=== PATIENT | female | born 1960 | race Caucasian/White ===

== ENCOUNTER 2020-01-02 03:04 | Inpatient (IN) | payer MEDICARE, MEDICAID, SELFPAY ==
[2020-01-02] VITALS (19 sets, daily range): BP systolic 106–136; BP diastolic 40–71; PULSE 68–90; RESP 12–20; TEMP 35.9–36.8; O2SAT 91–100; BMI 47.8
--- NOTE | ~2020-01-02 | XR_ITS ---
EXAMINATION: XR knee LT 3V DATE: 01/02/2020 04:34 INDICATION: Left knee pain post fall TECHNIQUE: Anteroposterior, oblique and crosstable lateral views of the left knee were obtained COMPARISON: None. FINDINGS: Alignment is normal. No fracture. Moderate-sized left knee joint effusion without layering lipohemar throsis. Tricompartmental osteoarthritis at the left knee with at least mild joint space narrowing th e medial compartment which could be underestimated on nonweightbearing imaging. Extensive vascular ca lcifications. IMPRESSION: 1. Moderate-sized left knee joint effusion. No fracture. 2. At least mild tricompartmental osteoarthritis. Reviewed, dictated and finalized at location A.
--- NOTE | ~2020-01-02 | CT_ITS ---
EXAMINATION: CT brain wo con DATE: 01/02/2020 05:04 INDICATION: Head trauma TECHNIQUE: Computed tomography (CT) of the head was performed without intravenous contrast. Sagittal and coronal reconstructions were performed. The mA was adjusted according to patient size. Iterative reconstruction technique was employed. The dose-length product was 681.00 mGy-cm. COMPARISON: head CT dated 03/24/2019 FINDINGS: No fracture. No acute intracranial hemorrhage, acute infarction or abnormal extra axial fluid collect ion. Ventricles are normal and symmetric. No mass/mass effect. Mild mucosal thickening in the left ma xillary sinus. Changes of bilateral intraocular lens replacement. The orbits and mastoid air cells a re normal. Intracranial calcified cerebral atherosclerosis is noted. IMPRESSION: 1. No fracture or acute intracranial process. Reviewed, dictated and finalized at location A.
--- NOTE | ~2020-01-02 | XR_ITS ---
EXAMINATION: XR knee RT 3V DATE: 01/02/2020 04:35 INDICATION: Right knee pain post fall TECHNIQUE: Anteroposterior, oblique and crosstable lateral views of the right knee were obtained COMPARISON: None. FINDINGS: Alignment is normal. No fracture. No joint effusion/layering lipohemarthrosis. At least mild tricomp artmental osteoarthritis with small marginal osteophytes in all 3 compartments. Enthesophytes along t he anterior patella and anterior tibial tuberosity. Extensive scattered vascular calcifications. IMPRESSION: 1. At least mild tricompartmental osteoarthritis of the right knee. No fracture or joint effusion. Reviewed, dictated and finalized at location A.
--- NOTE | 2020-01-02 03:13 | ECG_ITS ---
Measurements Intervals [place] Rate: 74 P: 11 [place]: 188 QRS: 7 QRSD: 114 T: 47 QT: 440 QTc: 489 Interpretive Statements SINUS RHYTHM BORDERLINE ST ABNORMALITY- HIGH LATERAL LEADS BASELINE ARTIFACT- I, III, AVL, V4 BORDERLINE ECG Electronically Signed On 01-05-2020 10:15:00 CDT by Everett Lemon D.O.
[2020-01-02] MEDS: MORPHINE SULFATE 4 MG/ML INJ IV PUSH (03:42)
[2020-01-02 04:19] LABS: Basophils Percent Auto 0.2 % (0.2-1.2); Eosinophils Absolute Auto 0.6 K/mm3 (0-0.3); Immature Granulocyte Absolute 0.21 K/mm3 (0.00-0.031); Immature Granulocyte Percent A 1.1 % (0-0.5); Lymphocytes Absolute Auto 1.58 K/mm3 (0.9-3.2); Mean Corpuscular HGB Conc 31.6 g/dl (32-36); Mean Corpuscular Hemoglobin 33.3 pg (26-34); Mean Corpuscular Volume 105.6 fl (80-100); Mean Platelet Volume 11.4 fl (7.4-10.4); Monocytes Absolute Auto 0.8 K/mm3 (0.1-0.6); Monocytes Percent Auto 4.1 % (2.6-8.5); Neutrophils Absolute Auto 16.5 K/mm3 (1.3-6.7); Neutrophils Percent Auto 83.6 % (45.5-73.1); Platelet Count Result 253 k/mm3 (150-375); Red Blood Count 1.98 M/mm3 (4.2-5.4); Red Cell Distribution Width 13.6 % (11.5-14.5); White Blood Count 19.7 K/mm3 (4.5-10.0)
[2020-01-02 04:24] LABS: Hematocrit 20.9 % (37.0-47.0); Hemoglobin 6.6 g/dL (12.0-15.0)
--- NOTE | 2020-01-02 04:29 | ED.WEAKNESS ---
HPI - Weakness General Chief complaint: Weakness Stated complaint: fall/ dizzy/ SOB Time Seen by Provider: 01/02/20 03:06 History of Present Illness HPI Narrative: Patient is a 59-year-old female who presents ER with weakness and falls. Patient reports she had been started on Lamictal recently and thinks it has been making her lightheaded. Patient has end-stage renal disease from hypertension and diabetes and dialyzes Friday. She has not missed her dialysis recently. Patient was walking down the halls high when she got lightheaded and dizzy and fell to the ground landing on her left knee. A similar thing occurred 2 days ago when she landed on her right knee. Right knee has significant bruising where his left knee has no significant bruising or swelling. Pain in the knee is worse with flexion. Related Data Home Medications Medication Instructions Recorded Confirmed amlodipine 01/02/20 apixaban [Eliquis] mg 01/02/20 carvedilol 01/02/20 citalopram mg 01/02/20 ergocalciferol (vitamin D2) 01/02/20 furosemide 01/02/20 gabapentin 01/02/20 hydralazine 01/02/20 lamotrigine 01/02/20 Allergies Allergy/AdvReac Type Severity Reaction Status Date / Time latex Allergy Unknown Verified 03/24/19 15:31 aspertame Allergy Unknown Uncoded 03/11/17 21:24 Review of Systems Review of Systems: All systems reviewed & are unremarkable except as noted in HPI and below Constitutional: Constitutional: Denies chills, Denies fever(s) and Reports weakness ENT: Denies nasal congestion and Denies sore throat Cardiovascular: Cardiovascular: Denies chest pain and Denies radiating jaw, neck or arm pain Respiratory: Respiratory: Denies cough, Denies dyspnea and Denies wheezing Gastrointestinal: Gastrointestinal: Denies abdominal pain, Denies nausea and Denies vomiting Musculoskeletal: Musculoskeletal: Denies myalgias, Reports arthralgias and Denies joint swelling Integumentary/Breasts: Comments: Right knee bruising Neurologic: Reports dizziness, Denies focal weakness, Denies numbness and Reports weakness PMF Past Medical History Medical History (Updated 01/02/20 @ 06:33 by Aajy Philip MD) Anxiety CVA (cerebral vascular accident) Depression Diabetes type 2, controlled End stage renal disease History of congestive heart failure Hypertension Myocardial infarction Pulmonary embolism Surgical History Surgical History (Updated 01/02/20 @ 04:38 by Ajay Philip MD) History of ankle surgery Surgically constructed arteriovenous fistula Social History Social History (Updated 01/02/20 @ 04:37 by Ajay Philip MD) Smoking status: Never smoker Exam Narrative: Exam Narrative: GENERAL: Well-appearing, well-nourished, and in no acute distress. HEAD: Normocephalic, atraumatic. EYES: PERRL and EOMI. ENT: Mucous membranes moist. CHEST: Clear to auscultation. No respiratory distress. HEART: Regular rate and rhythm. Normal peripheral pulses. ABDOMEN: Soft, nontender, nondistended. EXTREMITIES: Right lower extremity with contusion over the knee and proximal tibia. Tender palpation over the patella. Range of motion intact with minimal pain. Patellar tendon intact bilaterally. Left knee with tenderness over the patella with increased pain with flexion. Normal bilateral upper extremities. SKIN: Warm, dry, no rash. NEURO: Alert and oriented x3. PSYCH: Normal mood and affect. Course Course Emergency Course: Patient reports she has had some dark black stools over the last couple days. She is on a blood thinner for her pulmonary embolism. She dialyzes Friday. Admit to the hospitalist service. Protonix ordered and we will transfuse blood. Vital Signs Vital signs: Vital Signs Temperature 97.9 F 01/02/20 03:03 Pulse Rate 75 01/02/20 03:03 Respiratory Rate 20 01/02/20 03:03 Blood Pressure 106/55 L 01/02/20 03:03 Pulse Oximetry 93 01/02/20 03:03
[2020-01-02 04:36] LABS: Blood Urea Nitrogen 89 mg/dL (7-17); Calcium 7.6 mg/dL (8.4-10.2); Carbon Dioxide 27 mmol/L (22-30); Chloride 97 mmol/L (98-107); Estimated Glomerular Filt Rate 5; Glucose 179 mg/dL (65-105); Potassium 5.5 mmol/L (3.4-5.0); Sodium 134 mmol/L (137-145)
--- NOTE | 2020-01-02 04:48 | PC.NURSE ---
Called lab to add on PT INR, PTT
[2020-01-02 05:03] LABS: INR 1.7; Prothrombin Time 19.3 Seconds (11.1-14.7)
[2020-01-02 05:04] LABS: Partial Thromboplastin Time 42.8 SECONDS (22.3-36.8)
[2020-01-02] MEDS: PANTOPRAZOLE SODIUM IV 40 MG VIAL IV PUSH ×3 (05:30→16:29)
--- NOTE | 2020-01-02 07:30 | PC.NURSE ---
This patient, Bhargavi Gonzalez, was admitted to 2 Medical Room 254-01. Patient/family oriented to hospital policies and general routines including ID bracelet, bed and alarms, visiting hours, pain management, procedures, bathroom and other care routines, personal items, smoking policy, room service/diet, and visiting hours. Valuables list has been completed. Information on how to activate the Rapid Response Team has been discussed. Patient/Family are encouraged to report perceived risks to care and to ask questions if they do not understand what they are told or what they should do. Report given to shift stackergita Cross RN.
--- NOTE | 2020-01-02 07:41 | PM.IMHP ---
H&P: HPI History of Present Illness Chief complaint: Dizziness/weakness/fall Narrative: Date and time of patient contact: 01/02/2020 at 5:50 a.m. Bhargavi Gonzalez is a 59 year old female with a past medical history of pulmonary embolism March 2019, morbid obesity, and end-stage renal disease who presented to the ER with weakness, dizziness and fall. The patient reports 1 week of increased dizziness and weakness. She thought that the symptoms were due to her new Lamictal prescription. She had been on Lamictal for about 5 days. However she was also having black stools at the same time. She did not notice any bharath blood in her stools. She does still produce urine 2 or 3 times a day but she has not been having hematuria or dysuria. Review of Systems Review of Systems: Narrative: 12 systems were reviewed with pertinent positives and negatives per HPI. Except as documented in the HPI, all other systems were reviewed and are negative. [facility] Past Medical History Medical History (Updated 01/02/20 @ 07:59 by Lizbeth Ortega DO) Anxiety Aortic stenosis Reported as mild on echocardiogram May 2018 with bowel rate of 1.4 cm2 with a loud holosystolic murmur CHF (congestive heart failure) With echocardiogram 2018 demonstrating mild concentric left ventricular hypertrophy EF of 55%, mild enlargement of left atrium, mild mitral valve regurgitation, mild aortic stenosis with valve area of 1.5 cm CVA (cerebral vascular accident) Depression Diabetes type 2, controlled Diabetic neuropathy Diabetic retinopathy End-stage renal disease on hemodialysis Since around 2016 Hepatic steatosis History of congestive heart failure Hypertension Morbid obesity Myocardial infarction Pulmonary embolism March 2019 Surgical History Surgical History (Updated 01/02/20 @ 07:59 by Lizbeth Ortega DO) History of ankle surgery ORIF about 2014 History of colonoscopy with polypectomy 2016 Status post cataract extraction of both eyes with insertion of intraocular lens Surgically constructed arteriovenous fistula Left upper arm Family History Family History (Updated 01/02/20 @ 08:16 by Lizbeth Ortega DO) Mother CHF (congestive heart failure) Acute myocardial infarction Hypertension Father Alcoholism Brain tumor Social History Social History (Updated 01/02/20 @ 08:19 by Lizbeth Ortega DO) Smoking status: Never smoker Tobacco type: cigarettes Alcohol intake: current Drinks per week: 1 Alcohol use details: She uses alcohol in moderation and only on occasion. No more than 1 drink every 2 weeks Substance use: current Substance use type: marijuana Living arrangements: alone Additional living arrangements comments: She lives along with her 5-year-old Cat. She has never been and does not have any children. Additional occupation/education comments: She is on disability. 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 Gender identity (if verbalized by the patient): Female Spiritual care concerns: No Meds Home Medications and Allergies Home Medications Medication Instructions Recorded Confirmed Type amlodipine 01/02/20 History apixaban [Eliquis] mg 01/02/20 History carvedilol 01/02/20 History citalopram mg 01/02/20 History ergocalciferol (vitamin D2) 01/02/20 History furosemide 01/02/20 History gabapentin 01/02/20 History hydralazine 01/02/20 History lamotrigine 01/02/20 History Allergies Allergy/AdvReac Type Severity Reaction Status Date / Time latex Allergy Unknown Verified 03/24/19 15:31 aspertame Allergy Unknown Uncoded 03/11/17 21:24 Vital Signs Vital Signs - 24 hr 01/02/20 03:03 01/02/20 04:35 01/02/20 05:29 Temperature 97.9 F Pulse Rate 75 75 70 Respiratory Rate 20 18 18 Blood Pressure 106/55 L 132/55 L 114/57 L Pulse Oximetry 93 95 100
--- NOTE | 2020-01-02 10:17 | PC.NURSE ---
Blood vitals were not obtained in the ER at 0654. Patient did not arrive to our unit until 0730, so vitals were taken upon arrival to our unit.
[2020-01-02] MEDS: TUBING, BLOOD PLUM PUMP TUBING 1 EACH XX (11:10)
[2020-01-02] MEDS: SODIUM CHLORIDE 0.9% IV 250 ML 30 ML IV CONT (11:10)
--- NOTE | 2020-01-02 11:54 | PM.CNNEP ---
Assessment and Plan Assessment and plan (1) End stage renal disease: Code(s): N18.6 - End stage renal disease Status: Chronic (2) Anemia: Code(s): D64.9 - Anemia, unspecified Status: Acute (3) Diabetes: Code(s): E11.9 - Type 2 diabetes mellitus without complications Status: Acute Assessment and Plan: . Additional Plan Bhargavi has end-stage renal disease. Her next dialysis treatment is due tomorrow and she has no critical electrolyte abnormalities or issues related to volume overload that would necessitate the need for urgent dialysis today. However she is quite anemic and this is further complicated by fact that she was on chronic anticoagulation (Eliquis) for her distant history of pulmonary embolism. Her Eliquis as has subsequently been discontinued and she has been started on IV proton pump inhibitor therapy with serial hemoglobins ordered as well as GI consultation for further evaluation/ intervention if needed. Packed red blood cell transfusion to be done per protocol and I will continue high-dose Epogen therapy with dialysis in the hopes this will also help maintain some stability in her hemoglobin and hematocrit. As already mentioned, I will proceed with dialysis tomorrow and continue her her dialysis schedule of Friday, Friday, Friday while she remains hospitalized with further adjustments to her dialysis prescription as deemed necessary based on her hospital course. I will continue to follow patient with you while she remains hospitalized. Thank you for allowing me to participate in the care this patient. History of Present Illness Reason for Consult Consult date: 01/02/20 Reason for consult: end stage renal disease Chief Complaint Chief complaint: Dizziness/weakness/fall History of Present Illness Narrative: The patient is a 59 year old female with a past medical history as outlined below who presented to the [facility] ER with weakness and dizziness. The patient has apparently been having the above symptoms for at least the last week if not longer. Initially, she thought the symptoms related to a new medication, specifically, Lamictal, since she has been on that medication for last five days as a new prescription. However, later on, she started to notice black tarry stools as well. She did not report any bright red blood in her stools at that time. No reported hemoptysis, hematemesis, or hematuria.n and t Workup and evaluation in the emergency room demonstrated the patient to be hemodynamically stable with the physical exam that was only really significant for bilateral knee pain. She had x-rays of her knees is not demonstrate any type of fracture or dislocation but routine blood test demonstrated labs consistent with her known history of end-stage renal disease and a CBC with significant anemia with a hemoglobin of 6.6. It was felt that her significant anemia may explain the symptoms that led to her presentation to the ER. She was subsequently typed and crossed for a packed red blood cell transfusion and subsequent admitted the hospital for further evaluation. Renal consultation was requested due to her end-stage renal disease. The patient normally dialyzes on a Friday, Friday, Friday dialysis schedule at the [facility] under the care of Dr. Noriega. her last dialysis treatment was on Friday (12/31/19) and it was apparently an uneventful treatment. From a dialysis perspective, she is usually compliant with her dialysis treatments and has not been having any issues or problems in general with this chronic therapy. Currently, the patient appears to be in no acute distress at the time of my visit. Review of Systems Review of Systems: Narrative: As per HPI. [facility] Past Medical History Medical History (Updated 01/02/20 @ 12:04 by Robin Taylor MD) Anxiety Aortic stenosis Reported as mild on echocardiogram May 2018 with b
[2020-01-02] MEDS: LIDOCAINE 5% PATCH 2 PATCH TRANSDERM (12:23)
--- NOTE | 2020-01-02 12:30 | PC.NURSE ---
Dr. Schmidt informed me to cancel the current H/H series and retime the series to start two hours after blood transfusion is complete.
--- NOTE | 2020-01-02 13:17 | PM.IMPN ---
Progress Note: A&P Assessment and Plan (1) Anemia: Code(s): D64.9 - Anemia, unspecified Status: Acute Assessment and Plan: Acute anemia due to GI blood loss complicating anemia of chronic disease. Blood transfusion has been ordered 01/02/20 13:17 Patient is a 59-year-old female morbidly obese with history of end-stage renal disease on hemodialysis presented emergency department after see had fell and landed on her knees see had been feeling tired and weak for about a week and and today patient was walking in the corridor and fell dizzy and fell to the floor striking both of her knees, patient also states he has noticed dark stool but denies any abdominal pain nausea or vomiting denies any hematemesis hematochezia, upon arrival to emergency department her hemoglobin was 6.6 and patient is being transfused, it most likely dizziness due to anemia, will do the stool Hemoccult will consult GI for further recommendation, present time patient is feeling better denies any chest pain shortness of breath palpitation fever or chills (2) Acute GI bleeding: Code(s): K92.2 - Gastrointestinal hemorrhage, unspecified Status: Acute Assessment and Plan: Gastroenterology has been consulted. Protonix IV b.i.d. Serial H&Hs every 6 hours have been ordered Will stop the patient's home Eliquis. The patient has been on anticoagulation for 9 months. If this was a 1 time episode of pulmonary embolism and given that the patient's PE was subsegmental chance of recurrent embolism is less likely. Unfortunately the patient does have a sedentary lifestyle. (3) Prolonged QT interval: Code(s): R94.31 - Abnormal electrocardiogram [ECG] [EKG] Status: Acute Assessment and Plan: The patient's home med rec has not yet been reviewed. The patient does not know exact medications. Nursing staff will need to get these medications from the patient's [facility]'s pharmacy. The patient did mention that she is on Celexa. Given her degree of QT prolongation had it would probably be good idea to consider switching the patient's medication EKG was personally reviewed in the ER however EKG is not available in the electronic record from my documentation of the exact intervals and rate. (4) Knee contusion: Code(s): S80.00XA - Contusion of unspecified knee, initial encounter Status: Acute Assessment and Plan: Bilateral knee contusion after the fall there is no fracture, will have a PT OT evaluate the patient Subjective Date/time seen: 01/02/20 13:17 Patient is a 59-year-old female morbidly obese with history of end-stage renal disease on hemodialysis presented emergency department after see had fell and landed on her knees see had been feeling tired and weak for about a week and and today patient was walking in the corridor and fell dizzy and fell to the floor striking both of her knees, bilateral knee x-ray did not show any fracture however patient does have a contusion left worse than right, will have a PT OT evaluate the patient, patient also states he has noticed dark stool but denies any abdominal pain nausea or vomiting denies any hematemesis hematochezia, upon arrival to emergency department her hemoglobin was 6.6 and patient is being transfused, it most likely dizziness due to anemia, will do the stool Hemoccult will consult GI for further recommendation, present time patient is feeling better denies any chest pain shortness of breath palpitation fever or chills Review of Systems Review of Systems: All systems reviewed & are unremarkable except as noted in HPI and below Exam Narrative: Exam Narrative: Morbidly obese Const: General: comfortable and no acute distress HENMT: General nose exam: Normal nares present Eyes: General: appearance normal, both eyes and all related structures Sclera: sclerae normal Neck: Neck: supple Resp: Effort & Inspection: normal respiratory effort Ausculta
--- NOTE | 2020-01-02 13:58 | WPDGICN ---
Assessment and Plan Assessment and plan (1) Melena: Code(s): K92.1 - Melena Status: Acute Assessment and Plan: she already got blood transfusion, continue to trend hb and signs of bleeding EGD tomorrow, holding her eliquis she had a colonoscopy about 3 years ago (2) Acute on chronic blood loss anemia: Code(s): D62 - Acute posthemorrhagic anemia Status: Acute Assessment and Plan: monitor hb, supportive care on ppi bid now (3) End stage renal disease: Code(s): N18.6 - End stage renal disease Status: Chronic Assessment and Plan: dialysis by nephrology team (4) Acute GI bleeding: Code(s): K92.2 - Gastrointestinal hemorrhage, unspecified Status: Acute (5) Diabetes: Code(s): E11.9 - Type 2 diabetes mellitus without complications Status: Acute (6) Morbid obesity: Code(s): E66.01 - Morbid (severe) obesity due to excess calories Status: Acute GI Consult Note Consult date/time: 01/02/20 13:58 Reason for consult: melena HPI: Bhargavi Gonzalez is a 59 year old female with history of pulmonary embolism March 2019 on eliquis, morbid obesity, depression, and end-stage renal disease for 2 years on dialysis - (due to HTN, DM) here with few days of increased dizziness and weakness. She just recently started using Lamictal for her depression and thought that could be the reason of feeling dizzy. She fell on her knees without losing counciousness. Last few days also noted black stools. Hb on admission 6.6 (baseline 9-10) and given 2 units of blood transfusion. Never had EGD, denies abdominal pain or nausea, sometimes reflux but she is not taking any medication. She had a colonoscopy about 3 years ago for screening and had a polyp. Review of Systems Review of Systems: All systems reviewed & are unremarkable except as noted in HPI and below Constitutional: Constitutional: Denies chills, Reports fatigue, Denies fever(s) and Reports weakness ENT: Denies nasal congestion and Denies sore throat Cardiovascular: Cardiovascular: Denies chest pain and Denies radiating jaw, neck or arm pain Respiratory: Respiratory: Denies cough, Denies dyspnea and Denies wheezing Gastrointestinal: Gastrointestinal: Denies abdominal pain, Denies nausea and Denies vomiting Comments: melena Genitourinary: Genitourinary: Denies dysuria Musculoskeletal: Musculoskeletal: Denies myalgias, Reports arthralgias and Denies joint swelling Integumentary/Breasts: Comments: Right knee bruising Neurologic: Reports dizziness, Denies focal weakness, Denies numbness and Reports weakness Psychiatric: Psychiatric: Reports depression [facility] Past Medical History Medical History (Updated 01/02/20 @ 14:04 by Mendez Ramirez MD) Acute on chronic blood loss anemia Anxiety Aortic stenosis Reported as mild on echocardiogram May 2018 with bowel rate of 1.4 cm2 with a loud holosystolic murmur CHF (congestive heart failure) With echocardiogram 2017 demonstrating mild concentric left ventricular hypertrophy EF of 55%, mild enlargement of left atrium, mild mitral valve regurgitation, mild aortic stenosis with valve area of 1.5 cm CVA (cerebral vascular accident) Depression Diabetes type 2, controlled Diabetic neuropathy Diabetic retinopathy End-stage renal disease on hemodialysis Since around 2016 Hepatic steatosis History of congestive heart failure Hypertension Melena Morbid obesity Myocardial infarction Pulmonary embolism March 2019 Surgical History Surgical History (Updated 01/02/20 @ 07:59 by Lizbeth Ortega DO) History of ankle surgery ORIF about 2014 History of colonoscopy with polypectomy 2016 Status post cataract extraction of both eyes with insertion of intraocular lens Surgically constructed arteriovenous fistula Left upper arm Family History Family History (Updated 01/02/20 @ 08:16 by Lizbeth Ortega DO) Mother CHF (congest
[2020-01-02 14:54] LABS: Glucose Point of Care 108 (65-105)
[2020-01-02 15:35] LABS: Hematocrit 24.1 % (37.0-47.0)
[2020-01-02 16:41] LABS: Glucose Point of Care 94 (65-105)
[2020-01-02 21:22] LABS: Hematocrit 23.9 % (37.0-47.0); Hemoglobin 7.9 g/dL (12.0-15.0)
[2020-01-02 23:46] LABS: Glucose Point of Care 123 (65-105)
[2020-01-03] VITALS (32 sets, daily range): BP systolic 94–153; BP diastolic 40–67; PULSE 70–96; RESP 13–20; TEMP 36–37; O2SAT 92–98
[2020-01-03 05:57] LABS: Hematocrit 23.6 % (37.0-47.0); Hemoglobin 7.7 g/dL (12.0-15.0); Mean Corpuscular HGB Conc 32.6 g/dl (32-36); Mean Corpuscular Hemoglobin 32.6 pg (26-34); Mean Platelet Volume 11.9 fl (7.4-10.4); Platelet Count Result 233 k/mm3 (150-375); Red Blood Count 2.36 M/mm3 (4.2-5.4); Red Cell Distribution Width 15.5 % (11.5-14.5); White Blood Count 18.1 K/mm3 (4.5-10.0)
[2020-01-03 06:17] LABS: Albumin Level 3.1 g/dL (3.5-5.1); Blood Urea Nitrogen 113 mg/dL (7-17); Calcium 7.9 mg/dL (8.4-10.2); Carbon Dioxide 23 mmol/L (22-30); Chloride 97 mmol/L (98-107); Estimated CRCL calculation 8 ml/min; Estimated Glomerular Filt Rate 4; Glucose 176 mg/dL (65-105); Phosphorus 11.3 mg/dL (2.5-4.5); Potassium 5.8 mmol/L (3.4-5.0); Sodium 132 mmol/L (137-145)
[2020-01-03 06:25] LABS: Glucose Point of Care 160 (65-105)
[2020-01-03 07:01] LABS: Hepatitis B Surface Antigen Negative (Negative)
[2020-01-03 07:07] LABS: HAV RESULT Negative (Negative); Hepatitis B Core IgM Result Negative (Negative)
[2020-01-03 07:19] LABS: Hepatitis B Surface Anti Res Negative; Hepatitis C Virus Antibody Negative (Negative)
[2020-01-03 10:29] LABS: Hemoglobin 8.7 g/dL (12.0-15.0)
[2020-01-03] MEDS: EPOETIN ALFA 20,000 UNITS/ML VIAL 20000 UNITS IV PUSH (11:23)
--- NOTE | 2020-01-03 13:02 | PM.IMPN ---
Progress Note: A&P Assessment and Plan (1) Anemia: Code(s): D64.9 - Anemia, unspecified Status: Acute Assessment and Plan: Acute anemia due to GI blood loss complicating anemia of chronic disease. Blood transfusion has been ordered 01/03/20 13:02 Patient is a 59-year-old female morbidly obese with history of end-stage renal disease on hemodialysis presented emergency department after she had fell and landed on her knees she had been feeling tired and weak for about a week and on the day of admission patient was walking in the corridor and fell dizzy and fell to the floor striking both of her knees, patient also states he has noticed dark stool but denies any abdominal pain nausea or vomiting denies any bharath bleeding or hematemesis upon arrival to emergency department her hemoglobin was 6.6 and patient was transfused, most likely her dizziness due to anemia, will do the stool Hemoccult we consulted GI and was seen is scheduled EGD today, today patient is feeling better denies any chest pain shortness of breath palpitation fever or chills, stats lidodoerm patches on the knees are helping with pain. will have PT/OT evaluate the patient and treat. (2) Acute GI bleeding: Code(s): K92.2 - Gastrointestinal hemorrhage, unspecified Status: Acute Assessment and Plan: Gastroenterology has been consulted. Protonix IV b.i.d. Serial H&Hs every 6 hours have been ordered Will stop the patient's home Eliquis. The patient has been on anticoagulation for 9 months. If this was a 1 time episode of pulmonary embolism and given that the patient's PE was subsegmental chance of recurrent embolism is less likely. Unfortunately the patient does have a sedentary lifestyle. (3) Prolonged QT interval: Code(s): R94.31 - Abnormal electrocardiogram [ECG] [EKG] Status: Acute Assessment and Plan: The patient's home med rec has not yet been reviewed. The patient does not know exact medications. Nursing staff will need to get these medications from the patient's [facility]'s pharmacy. The patient did mention that she is on Celexa. Given her degree of QT prolongation had it would probably be good idea to consider switching the patient's medication EKG was personally reviewed in the ER however EKG is not available in the electronic record from my documentation of the exact intervals and rate. (4) Knee contusion: Code(s): S80.00XA - Contusion of unspecified knee, initial encounter Status: Acute Assessment and Plan: Bilateral knee contusion after the fall there is no fracture, will have a PT OT evaluate the patient Subjective Date/time seen: 01/03/20 13:02 Patient is a 59-year-old female morbidly obese with history of end-stage renal disease on hemodialysis presented emergency department after she had fell and landed on her knees she had been feeling tired and weak for about a week and on the day of admission patient was walking in the corridor and fell dizzy and fell to the floor striking both of her knees, patient also states he has noticed dark stool but denies any abdominal pain nausea or vomiting denies any bharath bleeding or hematemesis upon arrival to emergency department her hemoglobin was 6.6 and patient was transfused, most likely her dizziness due to anemia, will do the stool Hemoccult we consulted GI and was seen is scheduled EGD today, today patient is feeling better denies any chest pain shortness of breath palpitation fever or chills, stats lidodoerm patches on the knees are helping with pain. will have PT/OT evaluate the patient and treat. Review of Systems Review of Systems: All systems reviewed & are unremarkable except as noted in HPI and below Exam Narrative: Exam Narrative: Morbidly obese Const: General: comfortable and no acute distress HENMT: General nose exam: Normal nares present Eyes: Sclera: sclerae normal Neck: Neck: supple Resp: Effort & I
[2020-01-03] MEDS: LIDOCAINE 5% PATCH 2 PATCH TRANSDERM (13:12)
[2020-01-03] MEDS: SODIUM CHLORIDE 0.9% IV 500 ML 10 ML IV CONT (13:23)
--- NOTE | 2020-01-03 13:26 | WPDANESEPPF ---
Anes - Initial Pre Proc Eval Procedure: Operation Date: 01/03/20 14:15 Proposed Procedures p Esophagogastroduodenoscopy - Mendez Ramirez MD Date/Time: 01/03/20 13:26 Surgeon: Lizbeth Ortega DO Pre Op Diagnosis: Dizziness/weakness/fall Patient Data Age: 59 Gender: F Height: 5 ft 6 in Weight: 136.2 kg Last Vital Signs Temp 36.2 C L 01/03/20 13:24 Pulse 83 01/03/20 13:24 Resp 20 01/03/20 13:24 BP 110/43 L 01/03/20 13:24 Pulse Ox 92 01/03/20 13:24 Allergies Allergy/AdvReac Type Severity Reaction Status Date / Time aspartame Allergy Unknown Unknown Verified 01/03/20 09:08 latex Allergy Unknown Unknown Verified 01/03/20 09:08 Home Medications Medication Instructions Recorded Confirmed Type amlodipine 10 mg PO HS 01/02/20 01/02/20 History apixaban [Eliquis] 5 mg PO BID 01/02/20 01/02/20 History carvedilol 25 mg PO DAILY 01/02/20 01/02/20 History citalopram 40 mg PO DAILY 01/02/20 01/02/20 History ergocalciferol (vitamin D2) 50,000 unit PO WEEKLY 01/02/20 01/02/20 History furosemide 40 mg PO DAILY 01/02/20 01/02/20 History gabapentin 200 mg PO BID 01/02/20 01/02/20 History hydralazine 25 mg PO TID 01/02/20 01/02/20 History lamotrigine 25 mg PO HS 01/02/20 01/02/20 History Laboratory Tests 01/02/20 01/02/20 01/02/20 04:46 14:52 15:15 WBC RBC Hgb 8.0 g/dL L g/dL (12.0-15.0) Hct 24.1 % L % (37.0-47.0) MCV MCH MCHC RDW Plt Count MPV Sodium Potassium Chloride Carbon Dioxide BUN Creatinine Estim Creat Clear Calc Estimated GFR Glucose POC Capillary Glucose 108 mg/dl mg/dl (65-105) Calcium Phosphorus Albumin Hepatitis A IgM Ab Hep Bs Antigen Hep Bs Antibody Hep B Core IgM Ab Hepatitis C Ab Screen Crossmatch See Detail 01/02/20 01/02/20 01/02/20 16:28 21:17 23:19 WBC RBC Hgb 7.9 g/dL L g/dL (12.0-15.0) Hct 23.9 % L % (37.0-47.0) MCV MCH MCHC RDW Plt Count MPV Sodium Potassium Chloride Carbon Dioxide BUN Creatinine Estim Creat Clear Calc Estimated GFR Glucose POC Capillary Glucose 94 mg/dl mg/dl 123 mg/dl H mg/dl (65-105) (65-105) Calcium Phosphorus Albumin Hepatitis A IgM Ab Hep Bs Antigen Hep Bs Antibody Hep B Core IgM Ab Hepatitis C Ab Screen Crossmatch 01/03/20 01/03/20 01/03/20 05:33 05:33 05:33 WBC 18.1 K/mm3 H K/mm3 (4.5-10.0) RBC 2.36 M/mm3 L M/mm3 (4.2-5.4) Hgb 7.7 g/dL L g/dL (12.0-15.0) Hct 23.6 % L % (37.0-47.0) MCV 100.0 fl D fl (80-100) MCH 32.6 pg pg (26-34) MCHC 32.6 g/dl g/dl (32-36) RDW 15.5 % H % (11.5-14.5) Plt Count 233 k/mm3 k/mm3 (150-375) MPV 11.9 fl H fl (7.4-10.4) Sodium 132 mmol/L L mmol/L (137-145) Potassium 5.8 mmol/L H mmol/L (3.4-5.0) Chloride 97 mmol/L L mmol/L (98-107) Carbon Dioxide 23 mmol/L mmol/L (22-30) BUN 113 mg/dL H D mg/dL (7-17) Creatinine 10.50 mg/dL H mg/dL (0.7-1.0) Estim Creat Clear Calc 8 ml/min ml/min Estimated GFR 4 L (59 - ) Glucose 176 mg/dL H mg/dL (65-105) POC Capillary Glucose Calcium 7.9 mg/dL L mg/dL (8.4-10.2) Phosphorus 11.3 mg/dL H mg/dL (2.5-4.
[2020-01-03 13:28] LABS: Glucose Point of Care 104 (65-105)
--- NOTE | 2020-01-03 14:27 | PCOTNOTE ---
OT evaluation attempted. Patient down for EGD at this time. Will attempt at later time.
[2020-01-03 14:31] LABS: Glucose Point of Care 96 (65-105)
--- NOTE | 2020-01-03 14:32 | PCPTNOTE ---
Pt was at EGD undergoing a procedure - unable to perform PT eval this date. Will try again tomorrow. Sneha Mcbride, PT, DPT
[2020-01-03 15:19] LABS: Add Urine Microscopic? YES; Amorphous Sediment Urine Few; Appearance Urine Cloudy (Clear); Bacteria Urine 4+ /hpf; Bilirubin Urine Negative (Negative); Blood Urine 2+ (Negative); Color Urine Yellow (Yellow); Glucose Urine UA Negative (Negative); Ketones Urine Negative (Negative); Leukocyte Esterase Ur 3+ LEU/UL (Negative); Mucus Urine Rare /lpf; Nitrate Urine Negative (Negative); Protein Urine 1+ mg/dL (Negative); Specific Grav Ur 1.014 (1.001-1.035); Squamous Epithelial Cell Urine Many /hpf (Few); Urobilinogen Urine Negative mg/dL (<2.0); WBC Clumps Urine Present /HPF; WBC Urine >75 /hpf
[2020-01-03 15:29] LABS: Hematocrit 26.2 % (37.0-47.0); Hemoglobin 8.7 g/dL (12.0-15.0)
--- NOTE | 2020-01-03 15:54 | PM.PNNEP ---
Progress Note: A&P Assessment and Plan (1) End stage renal disease: Code(s): N18.6 - End stage renal disease Status: Chronic Assessment and Plan: HD today and continue M/W/F scheduie electrolytes, volume status, and clearance acceptable (2) Anemia: Code(s): D64.9 - Anemia, unspecified Status: Acute Assessment and Plan: s/p PRBC transfusion GI following EGD with results note today Epogen with HD follow trend of H/H (3) Diabetes: Code(s): E11.9 - Type 2 diabetes mellitus without complications Status: Acute Assessment and Plan: follow accuchekcs on SSI Will control to follow. Subjective Date/time seen: 01/03/20 15:54 Tolerated dialysis earlier this AM and subsequent EGD this afternoon; otherwise appears in good spirits; no apparent distress voiced at the time of my visit; no events overnight or earlier this AM. Exam Narrative: Exam Narrative: General: WD/WN female in NAD Heart: normal S1 and S2; no rub Lungs: clear to auscultation Abdomen: soft, nontender, nondistended, positive bowel sounds Extremities: no cyanosis or clubbing; no edema Skin: warm and dry Objective Data Vital Signs Vital Signs: Vital Signs Temp Pulse Resp BP Pulse Ox 01/03/20 15:02 36.8 C 89 19 142/49 H 95 01/03/20 14:32 87 13 132/59 L 94 01/03/20 14:22 85 20 114/42 L 94 01/03/20 14:12 86 16 94/44 L 94 01/03/20 13:24 36.2 C L 83 20 110/43 L 92 01/03/20 12:45 36.9 C 86 20 136/52 L 01/03/20 12:24 74 116/40 L 01/03/20 12:15 75 118/55 L 01/03/20 12:00 75 126/52 L 01/03/20 11:45 73 141/67 H 01/03/20 11:30 78 95/42 L 01/03/20 11:15 81 119/54 L 01/03/20 11:00 88 131/54 L 01/03/20 10:45 88 130/58 L 01/03/20 10:30 86 147/62 H 01/03/20 10:15 91 144/52 H 01/03/20 10:00 72 131/56 L 01/03/20 09:45 77 121/43 L 01/03/20 09:30 72 121/56 L 01/03/20 09:15 70 141/59 H 01/03/20 09:00 73 137/64 01/03/20 08:54 89 132/67 01/03/20 08:37 36.4 C 91 20 153/67 H 01/03/20 08:00 71 01/03/20 04:00 93 01/03/20 00:00 94 01/02/20 22:00 35.9 C L 71 16 118/43 L 91 01/02/20 20:00 69 01/02/20 16:00 88 Intake/Output Intake/Output: Intake & Output 12/31/19 01/01/20 01/02/20 01/03/20 23:59 23:59 23:59 23:59 Intake Total 1539 0 Output Total 3500 Balance 1539 -3500 Meds/Results Medications: Active Medications Generic Name Dose Route Start Last Admin Trade Name Freq PRN Reason Stop Dose Admin Acetaminophen 650 mg 01/02/20 05:51 Tylenol Tablet PO Q4H PRN Mild Pain (1-3) or Fever Hydrocodone Bitart/Acetaminophen 1 tab 01/02/20 05:51 [place] 5-325 Mg PO Q4H PRN Pain Rated 4-6 Dextrose 12.5 gm 01/02/20 11:10 Dextrose 50% Syringe IV PUSH PRN PRN Hypoglycemia Protocol Glucagon 1 mg 01/02/20 11:10 Glucagon For Inj IM PRN PRN Hypoglycemia Protocol Glucose 15 gm 01/02/20 11:10 Glutose 15 PO PRN PRN Hypoglycemia Protocol Dextrose 1,000 mls @ 100 mls/hr 01/02/20 11:10 Dextrose 5% 1,000 Ml IVPB PRN PRN Hypoglycemia Protocol Albumin Human 50 mls @ 999 mls/hr 01/03/20 03:21 Albutein IVPB 02/02/20 03:22 Q10M PRN HYPOTENSION Insulin Aspart 15 units 01/02/20 16:30 01/03/20 08:55 Novolog Mix 70/30 Vial SUB-Q Not Given BIDAC BRUNILDA Insulin Aspart 2 - 5 units 01/02/20 17:00 01/03/20 08:53 Novolog SUB-Q Not Given TIDWM [facility] Protocol Lidocaine 2 patch 01/02/20 09:00 01/03/20 13:12 Lidoderm TRANSDERM 2 patch DAILY [facility] Administration Morphine Sulfate 4 mg 01/02/20 05:51 Morphine Sulfate Inj IV PUSH Q2H PRN Pain Rated 7-10 Pantoprazole Sodium 40 mg 01/02/20 09:00 01/03/20 15:17 Protonix Iv IV PUSH Not Given BID [facility] Prometha
[2020-01-03 15:56] LABS: Glucose Point of Care 98 (65-105)
[2020-01-03] MEDS: INSULIN ASPART MIX 70/30 100 UNITS/ML 15 UNITS SUB-Q (16:19)
[2020-01-03] MEDS: PANTOPRAZOLE SODIUM IV 40 MG VIAL IV PUSH (16:27)
[2020-01-03 20:47] LABS: Glucose Point of Care 161 (65-105)
[2020-01-03 22:54] LABS: Hematocrit 27.9 % (37.0-47.0); Hemoglobin 9.1 g/dL (12.0-15.0)
[2020-01-04] VITALS (7 sets, daily range): BP systolic 108–120; BP diastolic 50–56; PULSE 69–81; RESP 16–18; TEMP 36.1–36.3; O2SAT 93–96
[2020-01-04 03:29] LABS: Hematocrit 23.9 % (37.0-47.0); Hemoglobin 7.8 g/dL (12.0-15.0); Mean Corpuscular HGB Conc 32.6 g/dl (32-36); Mean Corpuscular Hemoglobin 33.5 pg (26-34); Mean Corpuscular Volume 102.6 fl (80-100); Mean Platelet Volume 11.6 fl (7.4-10.4); Platelet Count Result 225 k/mm3 (150-375); Red Blood Count 2.33 M/mm3 (4.2-5.4); Red Cell Distribution Width 15.7 % (11.5-14.5); White Blood Count 17.7 K/mm3 (4.5-10.0)
[2020-01-04 03:37] LABS: Albumin Level 3.1 g/dL (3.5-5.1); Blood Urea Nitrogen 57 mg/dL (7-17); Calcium 8.3 mg/dL (8.4-10.2); Carbon Dioxide 29 mmol/L (22-30); Chloride 98 mmol/L (98-107); Estimated CRCL calculation 11 ml/min; Estimated Glomerular Filt Rate 6; Glucose 142 mg/dL (65-105); Potassium 4.7 mmol/L (3.4-5.0); Sodium 135 mmol/L (137-145)
[2020-01-04] MEDS: LIDOCAINE 5% PATCH 2 PATCH TRANSDERM (08:24)
[2020-01-04] MEDS: PANTOPRAZOLE SODIUM IV 40 MG VIAL IV PUSH (08:25)
[2020-01-04] MEDS: INSULIN ASPART MIX 70/30 100 UNITS/ML 15 UNITS SUB-Q (08:38)
[2020-01-04 09:34] LABS: Hemoglobin 7.4 g/dL (12.0-15.0)
--- NOTE | 2020-01-04 10:20 | WPDANESPN ---
Anes - Prog Note Post-Op Date/Time: 01/04/20 10:20 Cardiovascular status: normal Respiratory status: normal Airway patency: baseline Mental status: baseline Post-Op hydration status: normal Vital Signs: Last Vital Signs Temp 36.1 C L 01/04/20 06:00 Pulse 69 01/04/20 06:00 Resp 18 01/04/20 06:00 BP 120/50 L 01/04/20 06:00 Pulse Ox 96 01/04/20 06:00 I/O: Intake & Output 01/03/20 01/04/20 01/04/20 23:59 07:59 15:59 Intake Total 590 200 240 Output Total 100 150 Balance 490 50 240 Laboratory Tests 01/04/20 09:29 01/04/20 03:15 01/03/20 01/03/20 01/03/20 10:19 13:26 14:29 WBC RBC Hgb 8.7 L Hct 26.0 L MCV MCH MCHC RDW Plt Count MPV Sodium Potassium Chloride Carbon Dioxide BUN Creatinine Estim Creat Clear Calc Estimated GFR Glucose POC Capillary Glucose 104 96 Calcium Phosphorus Albumin Urine Color Urine Appearance Urine pH Ur Specific [place] Urine Protein Urine Glucose (UA) Urine Ketones Ur Blood (Man) Urine Nitrate Urine Bilirubin Urine Urobilinogen Leukocyte Esterase Rfl Urine RBC Urine WBC Urine WBC Clumps Ur Squamous Epith Cells Amorphous Sediment Urine Bacteria Urine Mucus 01/03/20 01/03/20 01/03/20 14:54 15:22 15:53 WBC RBC Hgb 8.7 L Hct 26.2 L MCV MCH MCHC RDW Plt Count MPV Sodium Potassium Chloride Carbon Dioxide BUN Creatinine Estim Creat Clear Calc Estimated GFR Glucose POC Capillary Glucose 98 Calcium Phosphorus Albumin Urine Color Yellow Urine Appearance Cloudy H Urine pH 5.0 Ur Specific [place] 1.014 Urine Protein 1+ H Urine Glucose (UA) Negative Urine Ketones Negative Ur Blood (Man) 2+ H Urine Nitrate Negative Urine Bilirubin Negative Urine Urobilinogen Negative Leukocyte Esterase Rfl 3+ H Urine RBC 11-20 H Urine WBC >75 H Urine WBC Clumps Present H Ur Squamous Epith Cells Many H Amorphous Sediment Few H Urine Bacteria 4+ H Urine Mucus Rare 01/03/20 01/03/20 01/04/20 20:44 22:48 03:15 WBC 17.7 H RBC 2.33 L Hgb 9.1 L 7.8 L Hct 27.9 L 23.9 L MCV 102.6 H MCH 33.5 MCHC 32.6 RDW 15.7 H Plt Count 225 MPV 11.6 H Sodium Potassium Chloride Carbon Dioxide BUN Creatinine Estim Creat Clear Calc Estimated GFR Glucose POC Capillary Glucose 161 H Calcium Phosphorus Albumin Urine Color Urine Appearance Urine pH Ur Specific [place] Urine Protein Urine Glucose (UA) Urine Ketones Ur Blood (Man) Urine Nitrate Urine Bilirubin Urine Urobilinogen Leukocyte Esterase Rfl Urine RBC Urine WBC Urine WBC Clumps Ur Squamous Epith Cells Amorphous Sediment Urine Bacteria Urine Mucus 01/04/20 01/04/20 03:15 09:29 WBC RBC Hgb 7.4 L Hct 23.0 L MCV MCH MCHC RDW Plt Count MPV Sodium 135 L Potassium 4.7 Chloride 98 Carbon Dioxide 29 BUN 57 H D Creatinine 7.40 H Estim Creat Clear Calc 11 Estimated GFR 6 L Glucose 142 H POC Capillary Glucose Calcium 8.3 L Phosphorus 8.0 H Albumin 3.1 L Urine Color Urine Appearance Urine pH Ur Specific [place] Urine Protein Urine Glucose (UA) Urine Ketones Ur Blood (Man) Urine Nitrate Urine Bilirubin Urine Urobilinogen Leukocyte Esterase Rfl Urine RBC Urine WBC Urine WBC Clumps Ur Squamous Epith Cells Amorphous Sediment Urine Bacteria Urine Mucus Post-procedural complaints: none Patient Feedback: Patient satisfied with anesthetic care.
[2020-01-04 11:35] LABS: Glucose Point of Care 109 (65-105)
--- NOTE | 2020-01-04 12:29 | PM.PNNEP ---
Progress Note: A&P Assessment and Plan (1) End stage renal disease: Code(s): N18.6 - End stage renal disease Status: Chronic Assessment and Plan: HD tomorrow and continue M/W/F scheduie electrolytes, volume status, and clearance acceptable (2) Anemia: Code(s): D64.9 - Anemia, unspecified Status: Acute Assessment and Plan: H/H trending down again s/p PRBC transfusion GI following s/p EGD with results noted Epogen with HD (3) Hypertension: Code(s): I10 - Essential (primary) hypertension Status: Chronic Assessment and Plan: well controlled not on any BP medications at this time (4) Diabetes: Code(s): E11.9 - Type 2 diabetes mellitus without complications Status: Chronic Assessment and Plan: follow accuchekcs on SSI Will control to follow. Subjective Date/time seen: 01/04/20 12:29 Tolerated dialysis and EGD yesterday without any issues; remains in good spirits today; no new issues or problems to report at this time. Exam Narrative: Exam Narrative: General: WD/WN female in NAD Heart: normal S1 and S2; no rub Lungs: clear to auscultation Abdomen: soft, nontender, nondistended, positive bowel sounds Extremities: no cyanosis or clubbing; no edema Skin: warm and intact Objective Data Vital Signs Vital Signs: Vital Signs Temp Pulse Pulse Resp BP Pulse Ox Pulse Ox 01/04/20 09:58 70 96 01/04/20 06:00 36.1 C L 69 18 120/50 L 96 01/04/20 04:00 69 01/04/20 00:00 81 01/03/20 23:27 36.0 C L 77 18 108/46 L 96 01/03/20 23:17 36.0 C L 77 18 106/46 L 96 01/03/20 22:00 36.6 C 79 20 106/46 L 98 01/03/20 20:00 96 01/03/20 16:00 95 01/03/20 15:02 36.8 C 89 19 142/49 H 95 01/03/20 14:32 87 13 132/59 L 94 01/03/20 14:22 85 20 114/42 L 94 01/03/20 14:12 86 16 94/44 L 94 01/03/20 13:24 36.2 C L 83 20 110/43 L 92 01/03/20 12:45 36.9 C 86 20 136/52 L Intake/Output Intake/Output: Intake & Output 01/01/20 01/02/20 01/03/20 01/04/20 23:59 23:59 23:59 23:59 Intake Total 1539 590 440 Output Total 3600 150 Balance 1539 -3010 290 Meds/Results Medications: Active Medications Generic Name Dose Route Start Last Admin Trade Name Freq PRN Reason Stop Dose Admin Acetaminophen 650 mg 01/02/20 05:51 Tylenol Tablet PO Q4H PRN Mild Pain (1-3) or Fever Hydrocodone Bitart/Acetaminophen 1 tab 01/02/20 05:51 01/04/20 08:40 [place] 5-325 Mg PO 1 tab Q4H PRN Administration Pain Rated 4-6 Dextrose 12.5 gm 01/02/20 11:10 Dextrose 50% Syringe IV PUSH PRN PRN Hypoglycemia Protocol Glucagon 1 mg 01/02/20 11:10 Glucagon For Inj IM PRN PRN Hypoglycemia Protocol Glucose 15 gm 01/02/20 11:10 Glutose 15 PO PRN PRN Hypoglycemia Protocol Dextrose 1,000 mls @ 100 mls/hr 01/02/20 11:10 Dextrose 5% 1,000 Ml IVPB PRN PRN Hypoglycemia Protocol Albumin Human 50 mls @ 999 mls/hr 01/03/20 03:21 Albutein IVPB 02/02/20 03:22 Q10M PRN HYPOTENSION Insulin Aspart 15 units 01/02/20 16:30 01/04/20 08:38 Novolog Mix 70/30 Vial SUB-Q 15 units BIDAC BRUNILDA Administration Insulin Aspart 2 - 5 units 01/02/20 17:00 01/04/20 08:23 Novolog SUB-Q Not Given TIDWM BRUNILDA Protocol Lidocaine 2 patch 01/02/20 09:00 01/04/20 08:24 Lidoderm TRANSDERM 2 patch DAILY BRUNILDA Administration Morphine Sulfate 4 mg 01/02/20 05:51 Morphine Sulfate Inj IV PUSH Q2H PRN Pain Rated 7-10 Pantoprazole Sodium 40 mg 01/02/20 09:00 01/04/20 08:25 Protonix Iv IV PUSH 40 mg BID BRUNILDA Administration Promethazine HCl 12.5 mg 01/02/20 05:51 Phenergan Inj IV PUSH Q6H PRN Nausea Radiology Results: ITS Impressions Knee X-Ray 01/02/20 08:06 IMPRESSION: 1. At
[2020-01-04 14:40] LABS: Glucose Point of Care 109 (65-105)
--- NOTE | 2020-01-04 14:59 | PM.DS ---
DS: Admitting Diagnosis Admitting Diagnosis Admitting Diagnosis: Gastrointestinal hemorrhage, unspecified DS: Summary Hospital Course Hospital Course: Spoke with Dr. Noriega her supervisor floor assembly and agrees with holding Corge and Amlodipine, patient will follow up with the nephroloigst to adjust her medications, patient will follow up with her primary care provider as soon as possible patient is instructed if any symptoms redevelop to go to nearest ER. Time Spent with Patient Time attestation: Total time spent providing and/or coordinating discharge services: DS: Data Data Completed and Pending Pending studies at discharge: Pending at discharge 01/03/20 14:08 Surgical [PTH] Routine Labs on day of discharge: Labs from last 24 hours 01/04/20 01/04/20 01/04/20 11:26 09:29 08:11 WBC RBC Hgb 7.4 L Hct 23.0 L MCV MCH MCHC RDW Plt Count MPV Sodium Potassium Chloride Carbon Dioxide BUN Creatinine Estim Creat Clear Calc Estimated GFR Glucose POC Capillary Glucose 109 109 Calcium Phosphorus Albumin Urine Color Urine Appearance Urine pH Ur Specific [place] Urine Protein Urine Glucose (UA) Urine Ketones Ur Blood (Man) Urine Nitrate Urine Bilirubin Urine Urobilinogen Leukocyte Esterase Rfl Urine RBC Urine WBC Urine WBC Clumps Ur Squamous Epith Cells Amorphous Sediment Urine Bacteria Urine Mucus 01/04/20 01/04/20 01/03/20 03:15 03:15 22:48 WBC 17.7 H RBC 2.33 L Hgb 7.8 L 9.1 L Hct 23.9 L 27.9 L MCV 102.6 H MCH 33.5 MCHC 32.6 RDW 15.7 H Plt Count 225 MPV 11.6 H Sodium 135 L Potassium 4.7 Chloride 98 Carbon Dioxide 29 BUN 57 H D Creatinine 7.40 H Estim Creat Clear Calc 11 Estimated GFR 6 L Glucose 142 H POC Capillary Glucose Calcium 8.3 L Phosphorus 8.0 H Albumin 3.1 L Urine Color Urine Appearance Urine pH Ur Specific [place] Urine Protein Urine Glucose (UA) Urine Ketones Ur Blood (Man) Urine Nitrate Urine Bilirubin Urine Urobilinogen Leukocyte Esterase Rfl Urine RBC Urine WBC Urine WBC Clumps Ur Squamous Epith Cells Amorphous Sediment Urine Bacteria Urine Mucus 01/03/20 01/03/20 01/03/20 20:44 15:53 15:22 WBC RBC Hgb 8.7 L Hct 26.2 L MCV MCH MCHC RDW Plt Count MPV Sodium Potassium Chloride Carbon Dioxide BUN Creatinine Estim Creat Clear Calc Estimated GFR Glucose POC Capillary Glucose 161 H 98 Calcium Phosphorus Albumin Urine Color Urine Appearance Urine pH Ur Specific [place] Urine Protein Urine Glucose (UA) Urine Ketones Ur Blood (Man) Urine Nitrate Urine Bilirubin Urine Urobilinogen Leukocyte Esterase Rfl Urine RBC Urine WBC Urine WBC Clumps Ur Squamous Epith Cells Amorphous Sediment Urine Bacteria Urine Mucus 01/03/20 14:54 WBC RBC Hgb Hct MCV MCH MCHC RDW Plt Count MPV Sodium Potassium Chloride Carbon Dioxide BUN Creatinine Estim Creat Clear Calc Estimated GFR Glucose POC Capillary Glucose Calcium Phosphorus Albumin Urine Color Yellow Urine Appearance Cloudy H Urine pH 5.0 Ur Specific [place] 1.014 Urine Protein 1+ H Urine Glucose (UA) Negative Urine Ketones Negative Ur Blood (Man) 2+ H Urine Nitrate Negative Urine Bilirubin Negative Urine Urobilinogen Negative Leukocyte Esterase Rfl 3+ H Urine RBC 11-20 H Urine WBC >75 H Urine WBC Clumps Present H Ur Squamous Epith Cells Many H Amorphous Sediment Few H Urine Bacteria 4+ H Urine Mucus Rare Discharge Plan Discharge Attending physician on discharge: Wilman Schmidt Consulting providers: Mendez Ramirez ; ; Robin Taylor
--- NOTE | 2020-01-04 15:09 | WPDGIPROGNO ---
Progress Note: A&P Assessment and Plan (1) Gastric ulcer: Qualifiers: Gastric ulcer chronicity: unspecified ulcer chronicity Gastric ulcer complication status: unspecified whether hemorrhage or perforation present Qualified Code(s): K25.9 - Gastric ulcer, unspecified as acute or chronic, without hemorrhage or perforation Code(s): K25.9 - Gastric ulcer, unspecified as acute or chronic, without hemorrhage or perforation Status: Acute Assessment and Plan: mod-severe erosive gastritis with several small gastric ulcers that can explain melena but no actively bleeding, biopsy pending. 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 she can see me in office in 3-4 weeks (2) Erosive gastritis: Code(s): K29.60 - Other gastritis without bleeding Status: Acute (3) Acute on chronic blood loss anemia: Code(s): D62 - Acute posthemorrhagic anemia Status: Acute Assessment and Plan: she had colonoscopy few years ago and did not want to have it again (4) Melena: Code(s): K92.1 - Melena Status: Acute (5) Hypertension: Qualifiers: Hypertension type: unspecified Qualified Code(s): I10 - Essential (primary) hypertension Code(s): I10 - Essential (primary) hypertension Status: Chronic (6) End stage renal disease: Code(s): N18.6 - End stage renal disease Status: Chronic Assessment and Plan: she is on dialysis (7) Morbid obesity: Code(s): E66.01 - Morbid (severe) obesity due to excess calories Status: Acute Subjective Date/time seen: 01/04/20 15:09 Interval history: no more bleeding in fact she is constipated now, denies abdominal pain, tolerating diet Review of Systems Review of Systems: All systems reviewed & are unremarkable except as noted in HPI and below Exam Const: General: comfortable and no acute distress Nutritional Appearance: obese Orientation/consciousness: patient oriented x3 HENMT: General nose exam: Normal nares present Eyes: General: appearance normal, both eyes and all related structures Neck: Neck: no JVD Resp: Auscultation: clear to auscultation bilaterally Cardio: Rate: regular rate Rhythm: regular rhythm GI: Inspection: non-distended GI Palp: Yes Soft to palpation, No Tenderness to palpation present (GI) and No Guarding due to palpation present (GI) Auscultation: normal bowel sounds Skin: General skin exam: pallor Neuro: General: gait normal Speech: normal speech Extrem: General: normal to inspection Other: av shunt left arm Psych: Mental Status: mental status grossly normal Objective Data Vital Signs Vital Signs: Vital Signs - 24 hr 01/03/20 16:00 01/03/20 20:00 01/03/20 22:00 Temperature 97.8 F Pulse Rate 95 96 79 Pulse Rate [At Rest Prior to Therapy Session] Respiratory Rate 20 Blood Pressure 106/46 L Pulse Oximetry 98 Pulse Oximetry [At Rest Prior to Therapy Session] 01/03/20 23:17 01/03/20 23:27 01/04/20 00:00 Temperature 96.8 F L 96.8 F L Pulse Rate 77 77 81 Pulse Rate [At Rest Prior to Therapy Session] Respiratory Rate 18 18 Blood Pressure 106/46 L 108/46 L Pulse Oximetry 96 96 Pulse Oximetry [At Rest Prior to Therapy Session] 01/04/20 04:00 01/04/20 06:00 01/04/20 08:00 Temperature 97.0 F L Pulse Rate 69 69 76 Pulse Rate [At Rest Prior to Therapy Session] Respiratory Rate 18 Blood Pressure 120/50 L Pulse Oximetry 96 Pulse Oximetry [At Rest Prior to Therapy Session] 01/04/20 09:58 01/04/20 12:00 Temperature Pulse Rate 72 Pulse Rate [At Rest Prior to Therapy Session] 70 Respiratory Rate Blood Pressure Pulse Oximetry Pulse Oximetry [At Rest Prior to Therapy Session] 96 Intake/Output Intake/Output: Intake & Output 01/01/20 01/02/20 01/03/20 01/04/20 23:59 23:59 23:59 23:59 Intake Total 1539 5
== END 2020-01-04 16:06 | disposition home or self-care (01) | DRG 377 ==
LOC: ANHED 03:40 → ANH2MED 06:33
PROVIDERS: Internal Medicine Gastroenterology; Internal Medicine Nephrology; Admitting Provider Internal Medicine; Emergency Provider Emergency Medicine; Visit Provider Family Medicine
PROC: 0DJ08ZZ Inspection of Upper Intestinal Tract, Via Natural or Artificial Opening Endoscopic (ICD-10-PCS; CPT 43235; principal; 2020-01-03 14:15)
DX: K29.01 Acute gastritis with bleeding (principal); N18.6 End stage renal disease; I13.2 Hypertensive heart and chronic kidney disease with heart failure and with stage 5 chronic kidney disease, or end stage renal disease; D62 Acute posthemorrhagic anemia; Z68.42 Body mass index [BMI] 45.0-49.9, adult; I50.9 Heart failure, unspecified; D63.8 Anemia in other chronic diseases classified elsewhere; E66.01 Morbid (severe) obesity due to excess calories; E11.22 Type 2 diabetes mellitus with diabetic chronic kidney disease; E11.319 Type 2 diabetes mellitus with unspecified diabetic retinopathy without macular edema; E11.40 Type 2 diabetes mellitus with diabetic neuropathy, unspecified; F32.9 Major depressive disorder, single episode, unspecified; R94.31 Abnormal electrocardiogram [ECG] [EKG]; S80.02XA Contusion of left knee, initial encounter; S80.01XA Contusion of right knee, initial encounter; W18.30XA Fall on same level, unspecified, initial encounter; I25.2 Old myocardial infarction; Z79.01 Long term (current) use of anticoagulants; Z79.899 Other long term (current) drug therapy; Z86.711 Personal history of pulmonary embolism; Z99.2 Dependence on renal dialysis
CPT/HCPCS: 36415; 36430; 70450; 73562; 80048; 80069; 80074; 81001; 85014; 85018; 85025; 85027; 85610; 85730; 86706; 86850; 86900; 86901; 86923; 87077; 87081; 87086; 87088; 87186; 88305; 93005; 96374; 96375; 97162; 97165; 99285; A9270; C9113; G0257; J1815; J2001; J2270; J2704; J7030; J7040; J7050; P9016; Q4081

== ENCOUNTER 2020-06-11 21:57 | Inpatient (IN) | payer MEDICARE, MEDICAID, SELFPAY ==
--- NOTE | ~2020-06-11 | XR_ITS ---
XR chest 1V portable DATE: 06/11/2020 22:24 INDICATION: Midsternal chest pain, shortness of breath. COPD, hypertension, congestive heart failure, diabetes TECHNIQUE: Portable AP chest on 06/11/2020 at 2226 hours COMPARISON: 03/24/2019 CT pulmonary scan FINDINGS: Heart size appears borderline, not optimally evaluated on AP projection because of magnific ation. There is pulmonary vascular congestion and redistribution. There is prominence of the minor fi ssure, suggesting subpleural edema. Slight blunting of the costophrenic angles may represent minimal pleural effusions. Some Nathan B-lines are suggested. There are mild primarily central and lower lung zone infiltrates suggesting pulmonary edema. Pneumonia is not excluded. Left subclavian and axillary artery stent. Degenerative spurring of the thoracic spine. IMPRESSION: Congestive heart failure, pulmonary edema. Pneumonia is not excluded. Reviewed, dictated and finalized at location A. IMPRESSION: Congestive heart failure, pulmonary edema. Pneumonia is not exclude dNaya
[2020-06-11 21:58] VITALS: BP 117/49; PULSE 85; RESP 26; TEMP 36.4; O2SAT 85
[2020-06-11 22:08] VITALS: PULSE 84; RESP 26; O2SAT 90
--- NOTE | 2020-06-11 22:15 | ECG_ITS ---
Measurements Intervals [place] Rate: 85 P: 40 SD: 186 QRS: -12 QRSD: 108 T: 59 QT: 360 QTc: 430 Interpretive Statements SINUS RHYTHM BORDERLINE R WAVE PROGRESSION, ANTERIOR LEADS BORDERLINE ST ABNORMALITY- HIGH LATERAL LEADS BASELINE ARTIFACT- I, II, AVR, AVF, V2-V3, V5 BORDERLINE ECG Electronically Signed On 06-12-2020 7:03:22 CDT by Everett Lemon D.O.
--- NOTE | 2020-06-11 22:18 | ED.GENADULT ---
HPI - General Adult General Chief complaint: Shortness of Breath/Dyspnea Stated complaint: sob/ cp Time Seen by Provider: 06/11/20 22:08 Source: RN notes reviewed History of Present Illness HPI narrative: Patient presents to emergency department from home for shortness of breath. Patient states she has been short of breath throughout the day today. And worse with ambulation. States is associated with midsternal chest tightness that is worse with ambulation and resolves with resting. Patient states she does have a history of dialysis and is on dialysis Friday but missed her Friday dialysis appointment. She denies any fevers or chills cough abdominal pain nausea vomiting or any other symptoms. Patient is on Eliquis daily which she has been taking. She states that she makes urine approximately once every other day Related Data Home Medications Medication Instructions Recorded Confirmed ergocalciferol (vitamin D2) 50,000 unit PO WEEKLY 01/02/20 01/02/20 furosemide 80 mg PO DAILY 01/02/20 01/02/20 gabapentin 200 mg PO BID 01/02/20 01/02/20 hydralazine 25 mg PO TID 01/02/20 01/02/20 lamotrigine 25 mg PO HS 01/02/20 01/02/20 apixaban [Eliquis] mg 06/11/20 citalopram mg 06/11/20 sevelamer carbonate 06/11/20 06/11/20 Allergies Allergy/AdvReac Type Severity Reaction Status Date / Time aspartame Allergy Unknown Unknown Verified 06/11/20 22:09 latex Allergy Unknown Unknown Verified 06/11/20 22:09 Review of Systems Review of Systems: Narrative: Gen.: Denies fevers or chills ENT: Denies congestion Respiratory: See HPI CV: See HPI GI: Denies abdominal pain nausea, emesis or diarrhea chronic renal failure with dialysis Friday Musculoskeletal: Denies back pain or muscle pain Neuro: Denies numbness, tingling, weakness or focal weakness Skin: Denies rash Except as documented, all other systems reviewed and negative PMFSH Past Medical History Medical History Acute on chronic blood loss anemia Anxiety Aortic stenosis Reported as mild on echocardiogram May 2018 with bowel rate of 1.4 cm2 with a loud holosystolic murmur CHF (congestive heart failure) With echocardiogram 2018 demonstrating mild concentric left ventricular hypertrophy EF of 55%, mild enlargement of left atrium, mild mitral valve regurgitation, mild aortic stenosis with valve area of 1.5 cm CVA (cerebral vascular accident) Depression Diabetes type 2, controlled Diabetic neuropathy Diabetic retinopathy End-stage renal disease on hemodialysis Since around 2016 Erosive gastritis Gastric ulcer Hepatic steatosis History of congestive heart failure Hypertension Melena Morbid obesity Myocardial infarction Pulmonary embolism March 2019 Surgical History Surgical History History of ankle surgery ORIF about 2014 History of colonoscopy with polypectomy 2016 Status post cataract extraction of both eyes with insertion of intraocular lens Surgically constructed arteriovenous fistula Left upper arm Family History Family History Mother CHF (congestive heart failure) Acute myocardial infarction Hypertension Father Alcoholism Brain tumor Social History Social History Smoking status: Never smoker Tobacco type: cigarettes Alcohol intake: current Drinks per week: 1 Substance use: current Substance use type: marijuana Additional living arrangements comments: She lives along with her 5-year-old Cat. She has never been and does not have any children. Additional occupation/education comments: She is on disability. 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 Gender identity (if verbal
[2020-06-11 22:19] VITALS: PULSE 88; O2SAT 93
[2020-06-11 22:36] LABS: Basophils Percent Auto 0.2 % (0.2-1.2); Eosinophils Absolute Auto 0.1 K/mm3 (0-0.3); Eosinophils Percent Auto 0.7 % (0-4.4); Hematocrit 32.9 % (37.0-47.0); Hemoglobin 10.1 g/dL (12.0-15.0); Immature Granulocyte Absolute 0.12 K/mm3 (0.00-0.031); Immature Granulocyte Percent A 0.7 % (0-0.5); Lymphocytes Absolute Auto 0.54 K/mm3 (0.9-3.2); Lymphocytes Percent Auto 3.3 % (18.3-44.2); Mean Corpuscular HGB Conc 30.7 g/dl (32-36); Mean Corpuscular Hemoglobin 32.5 pg (26-34); Mean Corpuscular Volume 105.8 fl (80-100); Mean Platelet Volume 10.3 fl (7.4-10.4); Monocytes Absolute Auto 0.7 K/mm3 (0.1-0.6); Monocytes Percent Auto 4.3 % (2.6-8.5); Neutrophils Absolute Auto 14.9 K/mm3 (1.3-6.7); Neutrophils Percent Auto 90.8 % (45.5-73.1); Platelet Count Result 262 k/mm3 (150-375); Red Blood Count 3.11 M/mm3 (4.2-5.4); Red Cell Distribution Width 13.6 % (11.5-14.5); White Blood Count 16.4 K/mm3 (4.5-10.0)
[2020-06-11 22:46] LABS: INR 1.3
[2020-06-11 22:47] LABS: Partial Thromboplastin Time 33.4 SECONDS (22.3-36.8)
[2020-06-11 22:53] LABS: Anion Gap 16 mmol/L (8-16); Blood Urea Nitrogen 69 mg/dL (7-17); Calcium 8.9 mg/dL (8.4-10.2); Carbon Dioxide 24 mmol/L (22-30); Chloride 100 mmol/L (98-107); Estimated Glomerular Filt Rate 4; Glucose 137 mg/dL (65-105); Sodium 140 mmol/L (137-145)
[2020-06-11 23:02] LABS: NT Pro B Type Natriuretic Pept > 35000 PG/ML (5-100); Troponin I 0.032 ng/mL (0.000-0.034)
[2020-06-11 23:05] VITALS: BP 132/55; PULSE 81; RESP 20; TEMP 36.9; O2SAT 94
--- NOTE | 2020-06-11 23:06 | PC.NURSE ---
Assumed care of pt. at this time. Report from BELLE Barcenas
[2020-06-11] MEDS: INSULIN HUMAN REGULAR (*BKC) 100 UNITS/ML 10 UNITS IV PUSH (23:53)
[2020-06-11] MEDS: SODIUM POLYSTYRENE SULFONONATE 15 GM/60 ML BTL 30 GM PO (23:54)
[2020-06-11] MEDS: DEXTROSE 50% 25 GM/50 ML SYRINGE IV PUSH (23:54)
[2020-06-11] MEDS: SODIUM BICARBONATE 8.4% 50 MEQ/50 ML VIAL IV PUSH (23:54)
[2020-06-11] MEDS: CALCIUM GLUCONATE 1,000 MG/10 ML VIAL 1000 MG IV PUSH (23:54)
[2020-06-12] VITALS (31 sets, daily range): BP systolic 113–175; BP diastolic 43–94; PULSE 61–98; RESP 18–24; TEMP 36.2–37.1; O2SAT 93–97; BMI 48.2
--- NOTE | 2020-06-12 | ECHO_ITS ---
Patient Info Name: Bhargavi Gonzalez Age: 60 years : 1960 Gender: Female Ht: 66 in Wt: 300 lbs BSA: 2.60 m2 HR: 93 bpm BP: 144 / 66 mmHg Heart Rhythm: Sinus Rhythm Technical Quality: Good Exam Date: 06/12/2020 2:22 PM Exam Location: [facility] Patient Status: Inpatient Admit Date: 06/12/2020 Staff Ordering Physician: Jesus Wood MD Director Of Vocational Guidance: John cMlean RDCS Attending Provider: Hugo Belcher MD Referring Physician: Israel CASTELAN; Exam Type: CA echo dop color flow w con Study Info Indications R01.1 - Cardiac murmur, unspecified Complete two-dimensional, color flow and Doppler transthoracic echocardiogram is performed with contrast to opacify the left ventricle and to improve the deliniation of the left ventricle endocardial borders. Contrast/Agitated Saline Contrast/Ag. Saline: Definity Amount: 3.00 ml Administered By: Savita Rey RN Existing IV Access: Yes History/Risk Factors CHF w/ murmur (), DM2, HTN, CAD/AZ. Summary 1. Definity contrast used to improve visualization. 2. Left ventricular systolic function is mildly reduced, estimated at 40-45%. 3. The left ventricular diastolic function is grade II diastolic dysfunction. 4. Aortic valve is likely bicuspid and is severely stenotic by Doppler valve area 1.0 cm sq. 5. The mitral valve annulus is severely calcified. 6. Compared with 2018 aortic valve area has progressed from 1.4-1.0cm2. Left Ventricle Left ventricular chamber dimension is mildly enlarged. Left ventricular systolic function is mildly reduced, estimated at 40-45%. There is mild concentric increased left ventricular wall thickness. The left ventricular diastolic function is grade II diastolic dysfunction. Definity contrast used to improve visualization. Right Ventricle Right ventricular chamber dimension is normal. Left Atria Left atrial chamber dimension is moderately enlarged. Right Atria Right atrial chamber dimension is normal. Aortic Valve The aortic valve is bicuspid. Aortic valve is likely bicuspid and is severely stenotic by Doppler valve area 1.0 cm sq. Pulmonic Valve The pulmonic valve is not well visualized. Mitral Valve The mitral valve has thickened leaflets. There is trace mitral valve regurgitation. The mitral valve annulus is severely calcified. Tricuspid Valve The tricuspid valve leaflets are normal. Pericardium/Pleural The pericardium appears normal. Aorta The aortic root size at the sinus of Valsalva is normal. Left Ventricular Outflow Tract Name Value Normal LVOT 2D LVOT Diameter 1.99 cm LVOT Doppler LVOT Peak Gradient 8 mmHg LVOT Mean Gradient 5 mmHg LVOT VTI 31.08 cm LVOT VTI/AV VTI Ratio 0.43 LVOT Stroke Volume 96.62 ml LVOT CO 9.18 l/min LVOT CI 3.54 L/min/m2 Mitral Valve
--- NOTE | 2020-06-12 00:06 | PM.IMHP ---
H&P: HPI History of Present Illness Date/Time: 06/12/20 00:06 Chief complaint: acute respiratory failure with hypoxia, CRF, Narrative: This is a 60 year old Diabetic female with known ESRD on HD and chronic Eliquis therapy secondary to having a pulmonary embolism last year presented to the hospital tonight with a complaint of shortness of breath. She also experienced midsternal chest pain which has now resolved. She described her chest pain as tightness and worse with any movement. The patient admits that she missed her dialysis this past Friday and has been drinking a lot of fluids. She also reports a sporadic dry cough. The patient denies any fevers, chills, nausea, vomiting, wheezing, sore throat, abdominal pain, diarrhea, rectal bleeding or worsening LE swelling. No other complaints tonight. Review of Systems Review of Systems: All systems reviewed & are unremarkable except as noted in HPI and below PMFSH Past Medical History Medical History Acute on chronic blood loss anemia Anxiety Aortic stenosis Reported as mild on echocardiogram May 2018 with bowel rate of 1.4 cm2 with a loud holosystolic murmur CHF (congestive heart failure) With echocardiogram 2018 demonstrating mild concentric left ventricular hypertrophy EF of 55%, mild enlargement of left atrium, mild mitral valve regurgitation, mild aortic stenosis with valve area of 1.5 cm CVA (cerebral vascular accident) Depression Diabetes type 2, controlled Diabetic neuropathy Diabetic retinopathy End-stage renal disease on hemodialysis Since around 2016 Erosive gastritis Gastric ulcer Hepatic steatosis History of congestive heart failure Hypertension Melena Morbid obesity Myocardial infarction Pulmonary embolism March 2019 Surgical History Surgical History History of ankle surgery ORIF about 2014 History of colonoscopy with polypectomy 2016 Status post cataract extraction of both eyes with insertion of intraocular lens Surgically constructed arteriovenous fistula Left upper arm Family History Family History Mother CHF (congestive heart failure) Acute myocardial infarction Hypertension Father Alcoholism Brain tumor Social History Social History Smoking packs per day: 0.25 Smoking cigarettes per day: 5.0 Years smoked: 5 Smoking pack-years: 1.25 Smoking status: Former smoker Tobacco type: cigarettes Alcohol intake: never Drinks per week: 1 Substance use: never Substance use type: marijuana Additional living arrangements comments: She lives along with her 5-year-old Cat. She has never been and does not have any children. Additional occupation/education comments: She is on disability. 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 Gender identity (if verbalized by the patient): Female Spiritual care concerns: No Meds Home Medications and Allergies Home Medications Medication Instructions Recorded Confirmed Type ergocalciferol (vitamin D2) 50,000 unit PO WEEKLY 01/02/20 01/02/20 History furosemide 80 mg PO DAILY 01/02/20 01/02/20 History gabapentin 200 mg PO BID 01/02/20 01/02/20 History hydralazine 25 mg PO TID 01/02/20 01/02/20 History lamotrigine 25 mg PO HS 01/02/20 01/02/20 History pantoprazole 40 mg PO Q12HR #60 tablet 01/04/20 Rx apixaban [Eliquis] mg 06/11/20 History citalopram mg 06/11/20 History sevelamer carbonate 06/11/20 06/11/20 History amlodipine 10 mg PO DAILY 06/12/20 06/12/20 History carvedilol 25 mg PO BID 06/12/20 06/12/20 History hydrocodone-acetaminophen 5 - 325 tablet PO Q4H PRN 06/12/20 06/12/20 History Allergies Allergy/AdvReac Type Severity Reactio
[2020-06-12 00:19] LABS: Glucose Point of Care 122 (65-105)
--- NOTE | 2020-06-12 00:54 | ADMGEN ---
This patient, Bhargavi Gonzalez, was admitted to IMU Room 203-01. Patient/family oriented to hospital policies and general routines including ID bracelet, bed and alarms, visiting hours, pain management, procedures, bathroom and other care routines, personal items, smoking policy, room service/diet, and visiting hours. Information on how to activate the Rapid Response Team has been discussed. Patient/Family are encouraged to report perceived risks to care and to ask questions if they do not understand what they are told or what they should do. report from Jennie Pena4 06/12/2020
[2020-06-12 01:03] LABS: Glucose Point of Care 154 (65-105)
[2020-06-12 02:09] LABS: Troponin I 0.032 ng/mL (0.000-0.034)
[2020-06-12] MEDS: FUROSEMIDE INJ 100 MG/10 ML VIAL 80 MG IV PUSH (02:41)
[2020-06-12 05:16] LABS: Basophils Percent Auto 0.2 % (0.2-1.2); Eosinophils Absolute Auto 0.1 K/mm3 (0-0.3); Eosinophils Percent Auto 0.7 % (0-4.4); Hematocrit 29.7 % (37.0-47.0); Hemoglobin 9.3 g/dL (12.0-15.0); Immature Granulocyte Percent A 0.7 % (0-0.5); Lymphocytes Absolute Auto 0.84 K/mm3 (0.9-3.2); Lymphocytes Percent Auto 6.1 % (18.3-44.2); Mean Corpuscular HGB Conc 31.3 g/dl (32-36); Mean Corpuscular Hemoglobin 33.3 pg (26-34); Mean Corpuscular Volume 106.5 fl (80-100); Mean Platelet Volume 11.2 fl (7.4-10.4); Monocytes Absolute Auto 0.6 K/mm3 (0.1-0.6); Monocytes Percent Auto 4.5 % (2.6-8.5); Neutrophils Percent Auto 87.8 % (45.5-73.1); Platelet Count Result 243 k/mm3 (150-375); Red Blood Count 2.79 M/mm3 (4.2-5.4); Red Cell Distribution Width 13.5 % (11.5-14.5); White Blood Count 13.7 K/mm3 (4.5-10.0)
[2020-06-12 05:31] LABS: Anion Gap 14 mmol/L (8-16); Blood Urea Nitrogen 74 mg/dL (7-17); Calcium 8.6 mg/dL (8.4-10.2); Carbon Dioxide 28 mmol/L (22-30); Chloride 100 mmol/L (98-107); Estimated CRCL calculation 7 ml/min; Estimated Glomerular Filt Rate 3; Glucose 110 mg/dL (65-105); Potassium 5.5 mmol/L (3.4-5.0); Sodium 142 mmol/L (137-145)
[2020-06-12 05:47] LABS: Troponin I 0.037 ng/mL (0.000-0.034)
[2020-06-12 06:34] LABS: Hepatitis B Surface Antigen Negative (Negative)
[2020-06-12 06:40] LABS: HAV RESULT Negative (Negative); Hepatitis B Core IgM Result Negative (Negative)
[2020-06-12 06:52] LABS: Hepatitis B Surface Anti Res Negative; Hepatitis C Virus Antibody Negative (Negative)
[2020-06-12 07:57] LABS: Glucose Point of Care 104 (65-105)
[2020-06-12] MEDS: EPOETIN ALFA-EPBX 10,000 UNITS/ML VIAL 5000 UNITS IV PUSH (11:05)
--- NOTE | 2020-06-12 12:17 | PM.PNNEP ---
Progress Note: A&P Assessment and Plan (1) End stage renal disease: Code(s): N18.6 - End stage renal disease Status: Chronic Assessment and Plan: HD today and continue M/W/F scheduled possible DUF tomorrow FULL CONSULT to follow. Subjective Date/time seen: 06/12/20 12:17 Tolerating dialysis at the time of my visit (seen on HD at ~ 11:50AM); breathing seems better at this time; no apparent distress noted. Objective Data Vital Signs Vital Signs: Vital Signs Temp Pulse Resp BP Pulse Ox 06/12/20 11:45 97 152/70 H 06/12/20 11:30 96 149/61 H 06/12/20 11:15 95 150/75 H 06/12/20 11:00 61 149/66 H 06/12/20 10:45 92 146/55 H 06/12/20 10:30 91 145/65 H 06/12/20 10:15 93 145/43 H 06/12/20 10:00 97 134/63 06/12/20 09:45 96 175/94 H 06/12/20 09:30 92 170/56 H 06/12/20 09:15 92 150/68 H 06/12/20 09:00 92 158/68 H 06/12/20 08:45 91 141/73 H 06/12/20 08:30 92 145/48 H 06/12/20 08:27 92 153/68 H 06/12/20 08:15 36.9 C 93 24 H 152/61 H 06/12/20 08:00 36.3 C L 96 24 H 128/55 L 97 06/12/20 05:57 93 06/12/20 04:00 36.4 C L 78 24 H 123/62 93 06/12/20 02:00 77 06/12/20 01:01 36.3 C L 96 18 116/65 95 06/12/20 00:20 82 21 H 113/49 L 94 06/11/20 23:05 36.9 C 81 20 132/55 L 94 06/11/20 22:19 88 93 06/11/20 22:08 84 26 H 90 06/11/20 21:58 36.4 C 85 26 H 117/49 L 85 L Meds/Results Medications: Active Medications Generic Name Dose Route Start Last Admin Trade Name Freq PRN Reason Stop Dose Admin Hydrocodone Bitart/Acetaminophen 1 tab 06/12/20 03:34 Hydrocodone/Acetaminophen (*Crx) 10-325 Mg Tablet PO Q4H PRN Pain Rated 7-10 Amlodipine Besylate 10 mg 06/12/20 09:00 Amlodipine Besylate 5 Mg Tablet PO DAILY [facility] Apixaban 5 mg 06/12/20 09:00 Apixaban 5 Mg Tablet PO BID [facility] Carvedilol 25 mg 06/12/20 09:00 Carvedilol 25 Mg Tablet PO Q12HR [facility] Dextrose 12.5 gm 06/12/20 00:33 Dextrose 50% 25 Gm/50 Ml Syringe IV PUSH PRN PRN Hypoglycemia Protocol Epoetin Mg-epbx 5,000 units 06/12/20 19:11 06/12/20 11:05 Epoetin Mg-Epbx 10,000 Units/Ml Vial IV PUSH 06/12/20 19:12 5,000 units ONCE ONE Administration Ergocalciferol 50,000 unit 06/14/20 09:00 Ergocalciferol 50,000 Unit Capsule PO WEEKLY [facility] Gabapentin 200 mg 06/12/20 09:00 Gabapentin 100 Mg Capsule PO BID [facility] Glucagon 1 mg 06/12/20 00:33 Glucagon For Inj 1 Mg Vial IM PRN PRN Hypoglycemia Protocol Glucose 15 gm 06/12/20 00:33 Glucose Oral Gel 15 Gm Of Glucse In 37.5 Gm Tube PO PRN PRN Hypoglycemia Protocol Hydralazine HCl 25 mg 06/12/20 08:00 Hydralazine Hcl 25 Mg Tablet PO TIDWM [facility] Dextrose 1,000 mls @ 100 mls/hr 06/12/20 00:33 Dextrose 5% 1,000 Ml IVPB PRN PRN Hypoglycemia Protocol Albumin Human 50 mls @ 999 mls/hr 06/12/20 03:11 Albutein IVPB 07/12/20 03:12 Q10M PRN HYPOTENSION Insulin Aspart 3 - 6 units 06/12/20 08:00 06/12/20 08:26 Insulin Aspart (*Bkc) 100 Units/Ml SUB-Q Not Given TIDWM [facility] Protocol Lamotrigine 25 mg 06/12/20 21:00 Lamotrigine 25 Mg Tablet PO HS [facility] Pantoprazole Sodium 40 mg 06/12/20 09:00 Pantoprazole 40 Mg Tablet PO Q12HR [facility] Sevelamer Carbonate 800 mg 06/12/20 08:00 Sevelamer Carbonate 800 Mg Tablet PO TIDWM [facility] Radiology Results: ITS Impressions Chest X-Ray 06/12/20 06:53 IMPRESSION: Congestive heart failure, pulmonary edema. Pneumonia is not excluded. Labs Labs: Laboratory Tests 06/12/20 04:20 06/12/20 04:20 Quality Patient seen/evaluated on hemodialysis treatment (02120).
[2020-06-12] MEDS: PANTOPRAZOLE 40 MG TABLET PO ×2 (12:50→20:28)
[2020-06-12] MEDS: SEVELAMER CARBONATE 800 MG TABLET PO ×2 (12:50→17:13)
[2020-06-12] MEDS: hydrALAZINE HCL 25 MG TABLET PO ×2 (12:50→17:14)
[2020-06-12] MEDS: HYDROcodone/acetaminophen (*CRX) 10-325 MG TABLET 1 TAB PO ×2 (12:51→17:13)
[2020-06-12] MEDS: carvediloL 25 MG TABLET PO ×2 (12:51→20:25)
[2020-06-12] MEDS: APIXABAN 5 MG TABLET PO ×2 (12:51→17:13)
[2020-06-12] MEDS: amLODIPine BESYLATE 5 MG TABLET 10 MG PO (12:52)
[2020-06-12] MEDS: GABAPENTIN 100 MG CAPSULE 200 MG PO ×2 (12:52→17:14)
[2020-06-12 13:39] LABS: Glucose Point of Care 81 (65-105)
[2020-06-12] MEDS: PERFLUTREN LIPID MICROSPHERES 1.5 ML VIAL DILUTED TO 10 ML TOTAL VOLUME IV PUSH (14:54)
[2020-06-12 15:52] LABS: Glucose Point of Care 114 (65-105)
--- NOTE | 2020-06-12 16:08 | PM.IMPN ---
Progress Note: A&P Assessment and Plan (1) Fluid overload: Qualifiers: Hypervolemia type: other Qualified Code(s): E87.79 - Other fluid overload Code(s): E87.70 - Fluid overload, unspecified Status: Acute Assessment and Plan: Secondary to noncompliance with hemodialysis. . Oxygen as needed. 4 liters off at dialysis today and repeat scheduled for tomorrow (2) Acute respiratory failure with hypoxia: Code(s): J96.01 - Acute respiratory failure with hypoxia Status: Acute Assessment and Plan: Secondary to being fluid overloaded. Continue oxygen supplementation. PRN bronchodilators. The patient will benefit from dialysis. Echo to asses Vent function especially with murmer (3) Acute hyperkalemia: Code(s): E87.5 - Hyperkalemia Status: Acute Assessment and Plan: Secondary to worsening renal function from noncompliance with dialysis. The patient was treated with Calcium gluconate, insulin, dextrose, and sodium bicarbonate with K falling prior to dialysis. recheck am (4) Chest pain: Qualifiers: Chest pain type: unspecified Qualified Code(s): R07.9 - Chest pain, unspecified Code(s): R07.9 - Chest pain, unspecified Status: Acute Assessment and Plan: Now resolved and likely secondary to shortness of breath and fluid overload. Trop negative with one borderline. check echo for wall motion abnormality (5) Hypertension: Qualifiers: Hypertension type: unspecified Qualified Code(s): I10 - Essential (primary) hypertension Code(s): I10 - Essential (primary) hypertension Status: Chronic Assessment and Plan: Stable. Monitor blood pressure. Continue home antihypertensives. 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 insulin use: without detention use Diabetes mellitus complication status: with kidney complications Diabetes mellitus complication detail: with chronic kidney disease Chronic kidney disease stage: on chronic dialysis Qualified Code(s): E11.22 - Type 2 diabetes mellitus with diabetic chronic kidney disease; N18.6 - End stage renal disease; Z99.2 - Dependence on renal dialysis Code(s): E11.9 - Type 2 diabetes mellitus without complications Status: Chronic Assessment and Plan: Accuchecks, SSI Coverage, and check A1C (7) End stage renal disease: Code(s): N18.6 - End stage renal disease Status: Chronic Assessment and Plan: Nephrology following (8) Chronic anticoagulation: Code(s): Z79.01 - 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 Continue Eliquis therapy. (9) Chronic anemia: Code(s): D64.9 - Anemia, unspecified Status: Chronic Assessment and Plan: Likely secondary to ESRD. check Fe studies Subjective Date/time seen: 06/12/20 16:08 Interval history: 60-year-old hypertensive type 2 diabetic with end-stage renal disease on hemodialysis Friday presented with increasing shortness of breath and volume overload. She had missed her last dialysis session. Potassium was elevated and treated appropriately in the emergency room. I saw her today while on dialysis and she was feeling better. Exam Narrative: Exam Narrative: Blood pressure 144/66 pulse is 90 and regular sat in 93% on 2 L nasal cannula lungs very faint crackle left posterior base distant breath sounds CV regular rate rhythm systolic ejection murmur lower left sternal were abdomen obese nontender extremities trace to 1+ lower extremity edema neuro alert cooperative no focal deficits Objective Data Vital Signs Vital Signs: Vital Signs - 24 hr 06/11/20 21:58 06/11/20 22:08 06/11/20 22:19 Temperature 36.4 C Pulse Rate 85 84 88 Respiratory Rate 26 H 26 H Blood Pressure 117/49 L
[2020-06-12] MEDS: lamoTRIgine 25 MG TABLET PO (20:28)
[2020-06-12 20:36] LABS: Glucose Point of Care 129 (65-105)
[2020-06-13] VITALS (22 sets, daily range): BP systolic 104–130; BP diastolic 35–67; PULSE 70–95; RESP 18–24; TEMP 36–36.9; O2SAT 94–100
[2020-06-13 05:37] LABS: Basophils Percent Auto 0.3 % (0.2-1.2); Eosinophils Absolute Auto 0.4 K/mm3 (0-0.3); Eosinophils Percent Auto 4.2 % (0-4.4); Hematocrit 30.4 % (37.0-47.0); Hemoglobin 9.3 g/dL (12.0-15.0); Immature Granulocyte Absolute 0.08 K/mm3 (0.00-0.031); Immature Granulocyte Percent A 0.9 % (0-0.5); Lymphocytes Absolute Auto 1.25 K/mm3 (0.9-3.2); Lymphocytes Percent Auto 13.9 % (18.3-44.2); Mean Corpuscular HGB Conc 30.6 g/dl (32-36); Mean Corpuscular Hemoglobin 33.1 pg (26-34); Mean Corpuscular Volume 108.2 fl (80-100); Mean Platelet Volume 11.2 fl (7.4-10.4); Monocytes Absolute Auto 0.5 K/mm3 (0.1-0.6); Monocytes Percent Auto 5.6 % (2.6-8.5); Neutrophils Absolute Auto 6.8 K/mm3 (1.3-6.7); Neutrophils Percent Auto 75.1 % (45.5-73.1); Platelet Count Result 211 k/mm3 (150-375); Red Blood Count 2.81 M/mm3 (4.2-5.4); Red Cell Distribution Width 13.4 % (11.5-14.5)
[2020-06-13 05:54] LABS: Iron 45 ug/dL (37-170)
[2020-06-13 05:57] LABS: Anion Gap 6 mmol/L (8-16); Blood Urea Nitrogen 43 mg/dL (7-17); Calcium 8.4 mg/dL (8.4-10.2); Carbon Dioxide 35 mmol/L (22-30); Chloride 99 mmol/L (98-107); Estimated CRCL calculation 12 ml/min; Estimated Glomerular Filt Rate 6; Glucose 94 mg/dL (65-105); Potassium 4.2 mmol/L (3.4-5.0); Sodium 140 mmol/L (137-145)
[2020-06-13 06:03] LABS: Percent Iron Saturation 22 % (20-50)
[2020-06-13 06:16] LABS: Hemoglobin A1C 5.5 % (<5.7)
[2020-06-13 08:50] LABS: Glucose Point of Care 89 (65-105)
[2020-06-13] MEDS: APIXABAN 5 MG TABLET PO ×2 (09:02→16:20)
[2020-06-13] MEDS: GABAPENTIN 100 MG CAPSULE 200 MG PO ×2 (09:03→22:24)
[2020-06-13] MEDS: hydrALAZINE HCL 25 MG TABLET PO ×2 (09:03→13:04)
[2020-06-13] MEDS: SEVELAMER CARBONATE 800 MG TABLET PO ×3 (09:03→16:20)
[2020-06-13] MEDS: amLODIPine BESYLATE 5 MG TABLET 10 MG PO (09:04)
[2020-06-13] MEDS: PANTOPRAZOLE 40 MG TABLET PO ×2 (09:04→22:23)
[2020-06-13] MEDS: carvediloL 25 MG TABLET PO ×2 (09:05→22:23)
--- NOTE | 2020-06-13 10:46 | PM.CNNEP ---
Assessment and Plan Assessment and plan (1) End stage renal disease: Code(s): N18.6 - End stage renal disease Status: Chronic Assessment and Plan: HD yesterday and continue M/W/ schedule while hosptialized follow electrolytes, volume status, and clearance (2) Fluid overload: Qualifiers: Hypervolemia type: other Qualified Code(s): E87.79 - Other fluid overload Code(s): E87.70 - Fluid overload, unspecified Status: Acute Assessment and Plan: due noncompliane with dialysis and increased fluid intake as well checking Echo plan DUF (dry ultrafiltration) for further fluid removal (3) Acute hyperkalemia: Code(s): E87.5 - Hyperkalemia Status: Acute Assessment and Plan: resolved s/p medical management in ER further correction with dialysis yesterday (4) Anemia: Code(s): D64.9 - Anemia, unspecified Status: Acute Assessment and Plan: due to ESRD borderline iron studies -- will dose with venofer with next HD treatment Epogen with HD follow H/H (5) Hypertension: Qualifiers: Hypertension type: unspecified Qualified Code(s): I10 - Essential (primary) hypertension Code(s): I10 - Essential (primary) hypertension Status: Chronic Assessment and Plan: reasonable control at this time suspect fluid with HD yesterday help this issue follow hemodynamics (6) Diabetes: Qualifiers: Diabetes mellitus type: type 2 Diabetes mellitus terminal gauger insulin use: without terminal gauger use Diabetes mellitus complication status: with kidney complications Diabetes mellitus complication detail: with chronic kidney disease Chronic kidney disease stage: on chronic dialysis Qualified Code(s): E11.22 - Type 2 diabetes mellitus with diabetic chronic kidney disease; N18.6 - End stage renal disease; Z99.2 - Dependence on renal dialysis Code(s): E11.9 - Type 2 diabetes mellitus without complications Status: Chronic Assessment and Plan: follow accuchecks on SSi Will continue to follow. History of Present Illness Reason for Consult Consult date: 06/13/20 Reason for consult: end stage renal disease Chief Complaint Chief complaint: acute respiratory failure with hypoxia, CRF, History of Present Illness Narrative: The patient is a 60 year old female with a past medical history as outlined below who presented to [facility] ER last night with shortness of breath. The patient shortness of breath started earlier on the day of admission and progressively got worse over the course of the day. She also had some associated midsternal chest pain that resolved on its own by the time of her arrival to the ER although she did describe it as a tightness that was worse with any type of movement. Other associated symptoms included dry sporadic cough and increased fluid intake since her mouth was dry all the time. Further complicating matters is that she missed her regularly scheduled dialysis treatment on Friday (06/09/2020) as well. She otherwise gave no other clinical symptoms with regard to fevers, chills, nausea, vomiting, diarrhea, hematochezia, melena, or palpitations. Workup and evaluation emergency room demonstrated the patient to be hemodynamically stable but in mild respiratory distress. Routine blood test demonstrated labs consistent with her known history of end-stage renal disease with but with hyperkalemia noted. Her chest x-ray demonstrated evidence of pulmonary vascular congestion as well. Due to her shortness of breath and respiratory distress, BiPAP was applied which seem to improve her overall clinical status. She received medical management for her hyperkalemia and was subsequent admitted the hospital for further evaluation and therapy. Renal consultation was requested due to her end-stage renal disease. The patient normally dialyzes on a Friday, Friday, Friday dialys
[2020-06-13 13:03] LABS: Glucose Point of Care 136 (65-105)
--- NOTE | 2020-06-13 14:59 | PM.IMPN ---
Progress Note: A&P Assessment and Plan (1) Fluid overload: Qualifiers: Hypervolemia type: other Qualified Code(s): E87.79 - Other fluid overload Code(s): E87.70 - Fluid overload, unspecified Status: Acute Assessment and Plan: Secondary to noncompliance with hemodialysis. . Oxygen as needed. Continue HD to improve fluid status. May need to be cautious due to her aortic stenosis. (2) Acute respiratory failure with hypoxia: Code(s): J96.01 - Acute respiratory failure with hypoxia Status: Acute Assessment and Plan: Secondary to being fluid overloaded. Not on home O2. Echo as mentioned below. Continue oxygen supplementation and wean as tolerated. Continue PRN bronchodilators. (3) Acute hyperkalemia: Code(s): E87.5 - Hyperkalemia Status: Acute Assessment and Plan: Secondary to worsening renal function from noncompliance with dialysis. The patient was treated with Calcium gluconate, insulin, dextrose, and sodium bicarbonate with improvement in potassium level. Potassium 4.2 today. (4) Chest pain: Qualifiers: Chest pain type: unspecified Qualified Code(s): R07.9 - Chest pain, unspecified Code(s): R07.9 - Chest pain, unspecified Status: Acute Assessment and Plan: Now resolved and likely secondary to shortness of breath and fluid overload. Trop negative with one borderline. EKG has boarderline findings. Echo showng EF 40-45% with Grade II diastolic dysfunction and bicuspid AV with severe stenosis (1.0cm2). She is being followed by a head screen worker already (5) Hypertension: Qualifiers: Hypertension type: unspecified Qualified Code(s): I10 - Essential (primary) hypertension Code(s): I10 - Essential (primary) hypertension Status: Chronic Assessment and Plan: Patient's blood pressure was reviewed on 06/13 Blood pressure remains well controlled. Will continue current medications coreg and hydralazine and amlodipine (6) Diabetes: Qualifiers: Chronic kidney disease stage: on chronic dialysis Diabetes mellitus complication detail: with chronic kidney disease Diabetes mellitus complication status: with kidney complications Diabetes mellitus long-term insulin use: without adjunct faculty for medical terminology use Diabetes mellitus type: type 2 Qualified Code(s): E11.22 - Type 2 diabetes mellitus with diabetic chronic kidney disease; N18.6 - End stage renal disease; Z99.2 - Dependence on renal dialysis Code(s): E11.9 - Type 2 diabetes mellitus without complications Status: Chronic Assessment and Plan: A1c 5.5. The patient's blood glucose was reviewed on 06/13 Glucose remains well controlled. Continue AccuCheks covering with sliding scale. Hypoglycemia protocol available as needed. Continue current treatment plan. (7) End stage renal disease: Code(s): N18.6 - End stage renal disease Status: Chronic Assessment and Plan: Nephrology following. Ciontinue HD - (8) Chronic anticoagulation: Code(s): Z79.01 - termite control servicer (current) use of anticoagulants Status: Chronic Assessment and Plan: Secondary to previous PE. Continue Eliquis therapy. (9) Chronic anemia: Code(s): D64.9 - Anemia, unspecified Status: Chronic Assessment and Plan: Likely secondary to ESRD. Fe studies more consistent with chronic disease then iron deficiency. EPO started Subjective Date/time seen: 06/13/20 14:59 Interval history: Date of service 06/13 60yo female with HTN, ESRD, DM here for increasing shortness of breath and volume overload. She has HD -- and has missed her last dialysis session prior to admission. Potassium was elevated and treated appropriately in the emergency room. Assuming care. Chart reviewed. She does not wear oxygen at home. She feels better overall. She denies chest pain. Eating well. No shayy
[2020-06-13] MEDS: BENZOCAINE/MENTHOL (*BKC) 18 EA LOZENGE 1 LOZENGE PO (16:20)
[2020-06-13 16:39] LABS: Glucose Point of Care 136 (65-105)
--- NOTE | 2020-06-13 18:27 | PC.NURSE ---
to dialysis room for treatment via bed accompanied by staff
[2020-06-13] MEDS: EPOETIN ALFA-EPBX 10,000 UNITS/ML VIAL 10000 UNITS IV PUSH (19:25)
[2020-06-13 22:00] LABS: Glucose Point of Care 197 (65-105)
[2020-06-13] MEDS: lamoTRIgine 25 MG TABLET PO (22:23)
[2020-06-13] MEDS: FLUTICASONE PROPIONATE 0.05% NA SPR 16 GM BTL (*BKC) 1 SPRAY NASAL (22:24)
--- NOTE | 2020-06-13 23:00 | PC.NURSE ---
This patient, Bhargavi Gonzalez, was received from [[facility] ] on 06/13/20 at 2300. Personal belongings list checked and signed. Patient/family oriented to unit policies and routines
[2020-06-14] VITALS (22 sets, daily range): BP systolic 94–139; BP diastolic 43–74; PULSE 58–90; RESP 16–20; TEMP 36.1–37.1; O2SAT 91–97
[2020-06-14] MEDS: BENZOCAINE/MENTHOL (*BKC) 18 EA LOZENGE 1 LOZENGE PO (05:49)
[2020-06-14 07:39] LABS: Glucose Point of Care 121 (65-105)
[2020-06-14] MEDS: APIXABAN 5 MG TABLET PO (08:15)
[2020-06-14] MEDS: amLODIPine BESYLATE 5 MG TABLET 10 MG PO (08:15)
[2020-06-14] MEDS: GABAPENTIN 100 MG CAPSULE 200 MG PO (08:15)
[2020-06-14] MEDS: ERGOCALCIFEROL 50,000 UNIT CAPSULE 50000 UNITS PO (08:15)
[2020-06-14] MEDS: SEVELAMER CARBONATE 800 MG TABLET PO ×2 (08:16→12:07)
[2020-06-14] MEDS: hydrALAZINE HCL 25 MG TABLET PO ×2 (08:16→12:02)
[2020-06-14] MEDS: carvediloL 25 MG TABLET PO (08:16)
[2020-06-14] MEDS: PANTOPRAZOLE 40 MG TABLET PO (08:17)
[2020-06-14] MEDS: FLUTICASONE PROPIONATE 0.05% NA SPR 16 GM BTL (*BKC) 1 SPRAY NASAL (08:19)
--- NOTE | 2020-06-14 10:00 | PM.DS ---
DS: Admitting Diagnosis Admitting Diagnosis Admitting Diagnosis: acute respiratory failure with hypoxia, CRF, DS: Discharge Diagnosis Discharge Diagnosis (1) Fluid overload: Qualifiers: Hypervolemia type: other Qualified Code(s): E87.79 - Other fluid overload Code(s): E87.70 - Fluid overload, unspecified Status: Acute Assessment and Plan: Secondary to noncompliance with hemodialysis. Oxygen was provided as needed. We continued HD to improve fluid status. May need to be cautious due to her aortic stenosis - discussed with nephrology. (2) Acute respiratory failure with hypoxia: Code(s): J96.01 - Acute respiratory failure with hypoxia Status: Acute Assessment and Plan: Secondary to being fluid overloaded. Not on home O2. Echo as mentioned below. We continued oxygen supplementation and able to wean off. We continued PRN bronchodilators. (3) Acute hyperkalemia: Code(s): E87.5 - Hyperkalemia Status: Acute Assessment and Plan: Secondary to noncompliance with dialysis. The patient was treated with Calcium gluconate, insulin, dextrose, and sodium bicarbonate with improvement in potassium level. Potassium 4.2 yesterday. (4) Chest pain: Qualifiers: Chest pain type: unspecified Qualified Code(s): R07.9 - Chest pain, unspecified Code(s): R07.9 - Chest pain, unspecified Status: Acute Assessment and Plan: Now resolved and likely secondary to shortness of breath and fluid overload. Trop negative with one borderline. EKG has boarderline findings. Echo showng EF 40-45% with Grade II diastolic dysfunction and bicuspid AV with severe stenosis (1.0cm2). She is actually not being followed by a sleeve maker she says today. Will plan to have her follow up with Dr Lemon. Change Norvasc to Lisinopril. EF 55% in 2018. (5) Hypertension: Qualifiers: Hypertension type: unspecified Qualified Code(s): I10 - Essential (primary) hypertension Code(s): I10 - Essential (primary) hypertension Status: Chronic Assessment and Plan: Patient's blood pressure was monitored Blood pressure remains well controlled. We continued current medications coreg and hydralazine but changed to lisinopril at discharge. (6) Diabetes: Qualifiers: Diabetes mellitus type: type 2 Diabetes mellitus intermediate insulin use: without buttermaker use Diabetes mellitus complication status: with kidney complications Diabetes mellitus complication detail: with chronic kidney disease Chronic kidney disease stage: on chronic dialysis Qualified Code(s): E11.22 - Type 2 diabetes mellitus with diabetic chronic kidney disease; N18.6 - End stage renal disease; Z99.2 - Dependence on renal dialysis Code(s): E11.9 - Type 2 diabetes mellitus without complications Status: Chronic Assessment and Plan: A1c 5.5. The patient's blood glucose was reviewed. Glucose remains well controlled. AccuCheks covering with sliding scale. Hypoglycemia protocol available as needed. (7) End stage renal disease: Code(s): N18.6 - End stage renal disease Status: Chronic Assessment and Plan: Nephrology following. Continue HD (8) Chronic anticoagulation: Code(s): Z79.01 - exterminator helper termite (current) use of anticoagulants Status: Chronic Assessment and Plan: Secondary to previous PE. We continued Eliquis therapy. (9) Chronic anemia: Code(s): D64.9 - Anemia, unspecified Status: Chronic Assessment and Plan: Likely secondary to ESRD. Fe studies more consistent with chronic disease then iron deficiency. EPO started (10) Aortic stenosis: Code(s): I35.0 - Nonrheumatic aortic (valve) stenosis Status: Acute Assessment and Plan: Echo 2018 showing mild with valve area 1.4. Echo here showing severe with valve area 1.0. She has had
--- NOTE | 2020-06-14 10:56 | PCPTNOTE ---
The PT treatment was unable to be completed today due to patient refusal. Patient reports she is discharging today after dialysis and wants to rest. Will continue per Plan of Care frequency.
[2020-06-14 12:18] LABS: Glucose Point of Care 157 (65-105)
--- NOTE | 2020-06-14 13:19 | PC.NURSE ---
Patient to dialysis per bed.
[2020-06-14] MEDS: EPOETIN ALFA-EPBX 10,000 UNITS/ML VIAL 10000 UNITS IV PUSH (15:19)
[2020-06-14] MEDS: IRON SUCROSE COMPLEX 200 MG in SODIUM CHLORIDE 0.9% IV 50 ML 240 MG IVPB (15:21)
--- NOTE | 2020-06-14 16:22 | P.PNNP_ITS ---
Progress Note: A&P Assessment and Plan (1) End stage renal disease: Code(s): N18.6 - End stage renal disease Status: Chronic Assessment and Plan: * HD today and continue M/W/F schedule while hosptialized * follow electrolytes, volume status, and clearance (2) Fluid overload: Qualifiers: Hypervolemia type: other Qualified Code(s): E87.79 - Other fluid overload Code(s): E87.70 - Fluid overload, unspecified Status: Acute Assessment and Plan: * due noncompliane with dialysis and increased fluid intake as well * Echo with severe AI * DUF (dry ultrafiltration) yesterday * HD today -- careful with aggressive fluid removal given valvular disease (3) Acute hyperkalemia: Code(s): E87.5 - Hyperkalemia Status: Acute Assessment and Plan: * resolved * s/p medical management in ER * further correction with dialysis (4) Anemia: Code(s): D64.9 - Anemia, unspecified Status: Acute Assessment and Plan: * due to ESRD * borderline iron studies -- will dose with venofer today * Epogen with HD * follow H/H (5) Hypertension: Qualifiers: Hypertension type: unspecified Qualified Code(s): I10 - Essential (primary) hypertension Code(s): I10 - Essential (primary) hypertension Status: Chronic Assessment and Plan: * reasonable control at this time * suspect fluid with HD yesterday help this issue * follow hemodynamics (6) Diabetes: Qualifiers: Chronic kidney disease stage: on chronic dialysis Diabetes mellitus complication detail: with chronic kidney disease Diabetes mellitus complication status: with kidney complications Diabetes mellitus salvage determiner insulin use: without salvage determiner use Diabetes mellitus type: type 2 Qualified Code(s): E11.22 - Type 2 diabetes mellitus with diabetic chronic kidney disease; N18.6 - End stage renal disease; Z99.2 - Dependence on renal dialysis Code(s): E11.9 - Type 2 diabetes mellitus without complications Status: Chronic Assessment and Plan: * follow accuchecks * on SSi Will continue to follow - not opposed to discharge from renal perspective. Subjective Date/time seen: 06/14/20 16:22 Tolerating dialysis at the time of my visit (seen on HD at ~ 4:10PM); no apparent distress noted; breathing has significantly improved since admission; happy about planned discharge today. Exam Narrative: Exam Narrative: General: WD/WN female in NAD Heart: normal S1 and S2; no rub Lungs: clear anteriorly; decreased at bases Abdomen: soft, nontender, nondistended, positive bowel sounds Extremities: no cyanosis or clubbing; no edema Skin: no rash or nodules Objective Data Vital Signs Vital Signs: Vital Signs Temp Pulse Resp BP Pulse Ox 06/14/20 16:00 80 134/48 L 06/14/20 15:45 74 117/47 L 06/14/20 15:30 87 128/56 L 06/14/20 15:15 86 128/47 L 06/14/20 15:00 79 109/45 L 06/14/20 14:45 87 109/49 L 06/14/20 14:30 58 L 139/74 06/14/20 14:15 86 116/52 L 06/14/20 14:00 84 108/44 L 06/14/20 13:45 82 121/47 L 06/14/20 13:30 83 119/52 L 06/14/20 13:16 84 120/54 L 06/14/20 13:00 36.6 C 78 16 112/44 L 06/14/20 12:00 36.1 C L 84 20 106/45 L 91 06/14/20 08:28 90 114/48 L 06/14/20 08:16 90
--- NOTE | 2020-06-14 16:22 | PM.PNNEP ---
Progress Note: A&P Assessment and Plan (1) End stage renal disease: Code(s): N18.6 - End stage renal disease Status: Chronic Assessment and Plan: HD today and continue M/W/ schedule while hosptialized follow electrolytes, volume status, and clearance (2) Fluid overload: Qualifiers: Hypervolemia type: other Qualified Code(s): E87.79 - Other fluid overload Code(s): E87.70 - Fluid overload, unspecified Status: Acute Assessment and Plan: due noncompliane with dialysis and increased fluid intake as well Echo with severe AI DUF (dry ultrafiltration) yesterday HD today -- careful with aggressive fluid removal given valvular disease (3) Acute hyperkalemia: Code(s): E87.5 - Hyperkalemia Status: Acute Assessment and Plan: resolved s/p medical management in ER further correction with dialysis (4) Anemia: Code(s): D64.9 - Anemia, unspecified Status: Acute Assessment and Plan: due to ESRD borderline iron studies -- will dose with venofer today Epogen with HD follow H/H (5) Hypertension: Qualifiers: Hypertension type: unspecified Qualified Code(s): I10 - Essential (primary) hypertension Code(s): I10 - Essential (primary) hypertension Status: Chronic Assessment and Plan: reasonable control at this time suspect fluid with HD yesterday help this issue follow hemodynamics (6) Diabetes: Qualifiers: Chronic kidney disease stage: on chronic dialysis Diabetes mellitus complication detail: with chronic kidney disease Diabetes mellitus complication status: with kidney complications Diabetes mellitus snf insulin use: without tank terminal gauger use Diabetes mellitus type: type 2 Qualified Code(s): E11.22 - Type 2 diabetes mellitus with diabetic chronic kidney disease; N18.6 - End stage renal disease; Z99.2 - Dependence on renal dialysis Code(s): E11.9 - Type 2 diabetes mellitus without complications Status: Chronic Assessment and Plan: follow accuchecks on SSi Will continue to follow - not opposed to discharge from renal perspective. Subjective Date/time seen: 06/14/20 16:22 Tolerating dialysis at the time of my visit (seen on HD at ~ 4:10PM); no apparent distress noted; breathing has significantly improved since admission; happy about planned discharge today. Exam Narrative: Exam Narrative: General: WD/WN female in NAD Heart: normal S1 and S2; no rub Lungs: clear anteriorly; decreased at bases Abdomen: soft, nontender, nondistended, positive bowel sounds Extremities: no cyanosis or clubbing; no edema Skin: no rash or nodules Objective Data Vital Signs Vital Signs: Vital Signs Temp Pulse Resp BP Pulse Ox 06/14/20 16:00 80 134/48 L 06/14/20 15:45 74 117/47 L 06/14/20 15:30 87 128/56 L 06/14/20 15:15 86 128/47 L 06/14/20 15:00 79 109/45 L 06/14/20 14:45 87 109/49 L 06/14/20 14:30 58 L 139/74 06/14/20 14:15 86 116/52 L 06/14/20 14:00 84 108/44 L 06/14/20 13:45 82 121/47 L 06/14/20 13:30 83 119/52 L 06/14/20 13:16 84 120/54 L 06/14/20 13:00 36.6 C 78 16 112/44 L 06/14/20 12:00 36.1 C L 84 20 106/45 L 91 06/14/20 08:28 90 114/48 L 06/14/20 08:16 90 06/14/20 08:00 36.8 C 84 18 112/58 L 97 06/14/20 05:00 37.1 C 87 20 110/43 L 94 06/13/20 23:45 36.1 C L 88 18 105/67 97 06/13/20 22:23 72 06/13/20 21:32 36.9 C 89 18 119/49 L 06/13/20 21:15 70 130/60 06/13/20 21:00 73 123/49 L 06/13/20 20:45 71 127/58 L 06/13/20 20:30 71 129/55 L 06/13/20 20:15 73 117/57 L 06/13/20 20:00 89 18 121/47 L 95 06/13/20 19:45 81 118/58 L 06/13/20 19:30 92 123/50 L 06/13/20 19:15 87 119/57 L 06/13/20 18:45 86 128/49 L 06/13/20 18:30 85 117/35 L 06/13/20 18:27 85 120/53 L 10
--- NOTE | 2020-06-14 17:06 | PC.NURSE ---
Patient return from dialysis.
== END 2020-06-14 17:40 | disposition home health service (06) | DRG 640 ==
LOC: ANHED 22:36 → ANHIMU 23:58 → ANH3MED 06-13 23:53 → ANHIMU 06-15 15:10
PROVIDERS: Internal Medicine; Internal Medicine Nephrology; Admitting Provider Family Medicine; Emergency Provider Emergency Medicine; Visit Provider Internal Medicine
DX: E87.79 Other fluid overload (principal); J96.01 Acute respiratory failure with hypoxia; N18.6 End stage renal disease; I13.2 Hypertensive heart and chronic kidney disease with heart failure and with stage 5 chronic kidney disease, or end stage renal disease; Z68.42 Body mass index [BMI] 45.0-49.9, adult; D63.1 Anemia in chronic kidney disease; E11.22 Type 2 diabetes mellitus with diabetic chronic kidney disease; I50.9 Heart failure, unspecified; Z99.2 Dependence on renal dialysis; Z91.15 Patient's noncompliance with renal dialysis; R07.9 Chest pain, unspecified; E66.01 Morbid (severe) obesity due to excess calories; E87.5 Hyperkalemia; I35.0 Nonrheumatic aortic (valve) stenosis; E11.65 Type 2 diabetes mellitus with hyperglycemia; E11.40 Type 2 diabetes mellitus with diabetic neuropathy, unspecified; E11.319 Type 2 diabetes mellitus with unspecified diabetic retinopathy without macular edema; I25.2 Old myocardial infarction; Z79.01 Long term (current) use of anticoagulants; Z28.21 Immunization not carried out because of patient refusal; Z98.42 Cataract extraction status, left eye; Z98.41 Cataract extraction status, right eye; Z96.1 Presence of intraocular lens; Z86.711 Personal history of pulmonary embolism; Z86.73 Personal history of transient ischemic attack (TIA), and cerebral infarction without residual deficits; Z87.891 Personal history of nicotine dependence
CPT/HCPCS: 36415; 71045; 80048; 80074; 82728; 83036; 83540; 83550; 83880; 84484; 85025; 85610; 85730; 86706; 93005; 96374; 96375; 97161; 97165; 99285; A9270; C8929; G0257; G0378; J0610; J1756; J1815; J1940; J7030; Q5106; Q9957

== ENCOUNTER 2020-07-28 13:33 | Inpatient (IN) | payer MEDICARE, MEDICAID, SELFPAY ==
[2020-07-28] VITALS (61 sets, daily range): BP systolic 107–155; BP diastolic 52–86; PULSE 75–84; RESP 11–29; TEMP 36.4–36.8; O2SAT 78–100; BMI 46.0
--- NOTE | ~2020-07-28 | XR_ITS ---
EXAMINATION: XR chest 1V portable DATE: 07/28/2020 14:22 INDICATION: Weakness. TECHNIQUE: A single frontal view of the chest was obtained. COMPARISON: Chest single view 06/11/2020, chest CT 03/24/2019 FINDINGS: There are mild airspace opacities in left lower lung zone. No pleural effusion or pneumotho rax. The heart size is normal. There are vascular stents overlying the left shoulder. IMPRESSION: 1. Mild airspace opacities in left lower lung zone, consistent with atelectasis versus pneumonia. Reviewed, dictated and finalized at location B. S FITTER
--- NOTE | 2020-07-28 13:45 | ECG_ITS ---
Measurements Intervals [place] Rate: 83 P: 16 MN: 180 QRS: -13 QRSD: 96 T: 55 QT: 442 QTc: 521 Interpretive Statements SINUS RHYTHM BORDERLINE ST-T WAVE ABNORMALITY- INF/HIGH LAT LEADS PROLONGED QT INTERVAL BASELINE ARTIFACT- I, II, III, AVR, AVL, AVF, V1-V3 ABNORMAL ECG Electronically Signed On 07-29-2020 13:38:55 MACHINE STEAK TENDERIZER by Everett Lemon D.O.
[2020-07-28 13:59] LABS: Basophils Percent Auto 0.3 % (0.2-1.2); Eosinophils Absolute Auto 0.3 K/mm3 (0-0.3); Eosinophils Percent Auto 2.6 % (0-4.4); Hematocrit 33.5 % (37.0-47.0); Hemoglobin 10.3 g/dL (12.0-15.0); Immature Granulocyte Percent A 0.9 % (0-0.5); Lymphocytes Absolute Auto 0.64 K/mm3 (0.9-3.2); Lymphocytes Percent Auto 5.9 % (18.3-44.2); Mean Corpuscular HGB Conc 30.7 g/dl (32-36); Mean Corpuscular Hemoglobin 33.1 pg (26-34); Mean Corpuscular Volume 107.7 fl (80-100); Mean Platelet Volume 12.1 fl (7.4-10.4); Monocytes Absolute Auto 0.5 K/mm3 (0.1-0.6); Monocytes Percent Auto 4.2 % (2.6-8.5); Neutrophils Absolute Auto 9.3 K/mm3 (1.3-6.7); Neutrophils Percent Auto 86.1 % (45.5-73.1); Platelet Count Result 102 k/mm3 (150-375); Red Blood Count 3.11 M/mm3 (4.2-5.4); Red Cell Distribution Width 13.8 % (11.5-14.5); White Blood Count 10.8 K/mm3 (4.5-10.0)
--- NOTE | 2020-07-28 14:02 | ED.GENADULT ---
HPI - General Adult General Chief complaint: Weakness Stated complaint: DIZZINESS,VERTIGO Time Seen by Provider: 07/28/20 13:59 Source: RN notes reviewed History of Present Illness HPI narrative: Patient presents emergency department from home for weakness. Patient states he went to dialysis this morning where they took off approximately 6 L. She states he normally only take off 3 to 4 L. He states that prior to dialysis she had been feeling fine however when she got home she was dizzy and lightheaded does not feel well. When EMS arrived the patient was noted to be hypotensive and also noted to be hypoxic. That time transfer to the ED for further evaluation she denies any recent illness she denies any fevers or chills chest pain shortness of breath abdominal pain nausea vomiting or any other symptoms Related Data Home Medications Medication Instructions Recorded Confirmed ergocalciferol (vitamin D2) 50,000 unit PO WEEKLY 01/02/20 06/12/20 gabapentin 200 mg PO BID 01/02/20 06/12/20 hydralazine 25 mg PO TID 01/02/20 06/12/20 lamotrigine 25 mg PO HS 01/02/20 06/12/20 Eliquis 5 mg PO BID 06/11/20 06/12/20 citalopram 40 mg PO DAILY 06/11/20 06/12/20 sevelamer carbonate 800 mg PO TID 06/11/20 06/12/20 carvedilol 25 mg PO BID 06/12/20 06/12/20 hydrocodone-acetaminophen 5 - 325 tablet PO Q4H PRN 06/12/20 06/12/20 Allergies Allergy/AdvReac Type Severity Reaction Status Date / Time aspartame Allergy Unknown Unknown Verified 07/28/20 13:44 latex Allergy Unknown Unknown Verified 07/28/20 13:44 Review of Systems Review of Systems: Narrative: Gen.: Denies fevers or chills Eyes: Denies eye pain or visual change ENT: Denies congestion Respiratory: Denies shortness of breath or cough CV: Denies chest pain or palpitations GI: Denies abdominal pain nausea, emesis or diarrhea reports chronic renal failure dialysis Musculoskeletal: Denies back pain or muscle pain Neuro: Reports dizziness Skin: Denies rash Except as documented, all other systems reviewed and negative PMFSH Past Medical History Medical History Acute on chronic blood loss anemia Anxiety Aortic stenosis Reported as mild on echocardiogram May 2018 with bowel rate of 1.4 cm2 with a loud holosystolic murmur CHF (congestive heart failure) With echocardiogram 2017 demonstrating mild concentric left ventricular hypertrophy EF of 55%, mild enlargement of left atrium, mild mitral valve regurgitation, mild aortic stenosis with valve area of 1.5 cm CVA (cerebral vascular accident) Depression Diabetes type 2, controlled Diabetic neuropathy Diabetic retinopathy End-stage renal disease on hemodialysis Since around 2016 Erosive gastritis Gastric ulcer Hepatic steatosis History of congestive heart failure Hypertension Melena Morbid obesity Myocardial infarction Pulmonary embolism March 2019 Surgical History Surgical History History of ankle surgery ORIF about 2014 History of colonoscopy with polypectomy 2016 Status post cataract extraction of both eyes with insertion of intraocular lens Surgically constructed arteriovenous fistula Left upper arm Family History Family History Mother CHF (congestive heart failure) Acute myocardial infarction Hypertension Father Alcoholism Brain tumor Social History Social History Smoking packs per day: 0.25 Smoking cigarettes per day: 5.0 Years smoked: 5 Smoking pack-years: 1.25 Smoking status: Former smoker Tobacco type: cigarettes Alcohol intake: never Drinks per week: 1 Substance use: never Substance use type: marijuana Additional living arrangements comments: She lives along with her 5-year-old Cat. She has never been and does not have any children. [place]
[2020-07-28 14:48] LABS: Alanine Aminotransferase 15 U/L (4-35); Albumin Level 3.5 g/dL (3.5-5.1); Alkaline Phosphatase 61 U/L (38-126); Anion Gap 5 mmol/L (8-16); Aspartate Amino Transferase 22 U/L (14-36); Bilirubin,Total 0.5 mg/dL (0.2-1.3); Blood Urea Nitrogen 19 mg/dL (7-17); Calcium 8.1 mg/dL (8.4-10.2); Carbon Dioxide 33 mmol/L (22-30); Chloride 98 mmol/L (98-107); Estimated Glomerular Filt Rate 11; Glucose 208 mg/dL (65-105); Potassium 4.2 mmol/L (3.4-5.0); Sodium 136 mmol/L (137-145)
[2020-07-28 16:00] LABS: Base Excess ABG 2.8 mEq/l (+/-2.0); Carboxyhemoglobin 0.8 % THb (0-2.0); Fractional Inspired Oxygen 32 %; HCO3 ABG 31.2 mEq/l (22.0-26.0); Methemoglobin ABG 0.2 %THb (0-1.5); Oxygen Content ABG 15.2 %vol (16.0-22.0); Oxygen Saturation ABG 98.5 % (95.0-100.0); Oxyhemoglobin 97.1 % THb (90.0-100.0); PCO2 ABG 69.4 mmHg (35.0-45.0); PO2 ABG 148.8 mmHg (80.0-100.0); PO2 FiO2 Ratio Arterial Blood 4.65 %; Reduced Hemoglobin 1.9 %THb (0-5.0); Total Hemoglobin 10.9 g/dL (12.0-18.0)
[2020-07-28 16:02] LABS: Device NASAL CANNULA; Modified Allen's Test Pass; Site Drawn RIGHT RADIAL
[2020-07-28 17:32] LABS: Alveolar/Arterial O2 Gradient 87.9 mmHg; Base Excess ABG 3.7 mEq/l (+/-2.0); Carboxyhemoglobin 0.8 % THb (0-2.0); Fractional Inspired Oxygen 40 %; HCO3 ABG 32.1 mEq/l (22.0-26.0); Methemoglobin ABG 0.1 %THb (0-1.5); Oxygen Content ABG 14.8 %vol (16.0-22.0); Oxygen Saturation ABG 97.5 % (95.0-100.0); Oxyhemoglobin 96.2 % THb (90.0-100.0); PCO2 ABG 71.1 mmHg (35.0-45.0); PO2 ABG 115.5 mmHg (80.0-100.0); PO2 FiO2 Ratio Arterial Blood 2.89 %; Reduced Hemoglobin 2.9 %THb (0-5.0); Total Hemoglobin 10.8 g/dL (12.0-18.0)
[2020-07-28 17:35] LABS: Device NON-INVASIVE VENT; Modified Allen's Test Pass; Site Drawn RIGHT RADIAL
[2020-07-28 17:36] LABS: Non-Invasive Expiratory Pressure 6 CMH2O; Non-Invasive Vent Rate 16 /MIN; pH ABG 7.273 (7.350-7.450)
[2020-07-28 17:37] LABS: Non-Invasive Inspiratory Pressure 14 CMH2O
[2020-07-28 19:28] LABS: Alveolar/Arterial O2 Gradient 38.2 mmHg; Base Excess ABG 3.4 mEq/l (+/-2.0); Carboxyhemoglobin 0.6 % THb (0-2.0); Fractional Inspired Oxygen 30 %; HCO3 ABG 30.9 mEq/l (22.0-26.0); Methemoglobin ABG 0.1 %THb (0-1.5); Oxygen Content ABG 14.9 %vol (16.0-22.0); Oxygen Saturation ABG 96.9 % (95.0-100.0); PO2 ABG 101.3 mmHg (80.0-100.0); PO2 FiO2 Ratio Arterial Blood 3.38 %; Reduced Hemoglobin 3.3 %THb (0-5.0); Total Hemoglobin 10.9 g/dL (12.0-18.0); pH ABG 7.307 (7.350-7.450)
[2020-07-28 19:29] LABS: Device NON-INVASIVE VENT; Modified Allen's Test Pass; Site Drawn RIGHT RADIAL
[2020-07-28 19:31] LABS: Non-Invasive Expiratory Pressure 10 CMH2O; Non-Invasive Inspiratory Pressure 22 CMH2O; Non-Invasive Vent Rate 24 /MIN; PCO2 ABG 63.3 mmHg (35.0-45.0)
[2020-07-28 21:54] LABS: Glucose Point of Care 68 (65-105)
[2020-07-28 22:26] LABS: Glucose Point of Care 90 (65-105)
[2020-07-28 23:21] LABS: SARS-CoV-2 RNA PCR Negative
[2020-07-29] VITALS (23 sets, daily range): BP systolic 109–137; BP diastolic 39–116; PULSE 67–84; RESP 18–24; TEMP 35.9–36.4; O2SAT 90–99
--- NOTE | 2020-07-29 01:19 | PM.IMHP ---
H&P: HPI History of Present Illness Date/Time: 07/29/20 01:19 Chief complaint: Orthostatic hypotension, acute respiratory failure Narrative: Bhargavi Gonzalez is a 60 year old female with past medical history of ESRD since 2016, pulmonary embolism 03/2019 on eliquis, anxiety/depression, type 2 diabetes, history of CVA, history of CHF, aortic stenosis who presents to the ED with complaints of weakness. She had dialysis today in which 6 L removed where typically 4 L removed. After dialysis she started feeling lightheaded and dizzy. She states she missed her dialysis on Friday because of nausea and vomiting and diarrhea. Then on Friday she had more fluid removed in her typical causing her to be lightheaded. She states on Friday show and 1 L removed and thought that yesterday was aggressive. She also complains of being lethargic and does not remember getting to the hospital. She typically gets Benadryl during dialysis. Otherwise she is on long-term hydrocodone for left lower extremity fracture with metal ruy history. She also takes things [id number] for sleep. She is a patient of Dr. Noriega hemodialysis Friday. Patient apparently has a history of noncompliance with dialysis and increase fluid intake. Patient had been getting increased aggressive fluid removal because of her severe aortic insufficiency. Patient gets Venofer and Epogen for her anemia of renal disease. In the ED: Patient quickly desaturate, is on 2 L nasal cannula when removed goes down to 80s. ABG consistent with hypercapnia and patient was put on BiPAP. EKG normal sinus rhythm rate 83. Patient was COVID swabbed in the ED. Patient admitted to IMU for hypercapnic respiratory failure. On my evaluation patient with back to baseline. She states she does not remember getting to the hospital but now is back to baseline. She is breathing comfortably saturation 98% on 2 L. patient is stable for medical floor with no tele. Date of service 07/28/2020. Her only complaints were lateness dizziness after dialysis. Review of Systems Review of Systems: Narrative: Constitutional: No Fever, No Chills, No Night Sweats, No Fatigue, No Malaise ENT/Mouth: No Hearing Changes, No Ear Pain, No Nasal Congestion, No Sinus Pain, No Hoarseness, No sore throat, No Rhinorrhea, No Swallowing Difficulty Eyes: No Eye Pain, No Redness, No Vision Changes Cardiovascular: No Chest Pain, No Palpitations, No Dyspnea on Exertion, No Orthopnea, No Claudication, No Edema. Endorses lightheadedness and dizziness. Respiratory: No Cough, No Sputum, No Wheezing, No Shortness of Breath Gastrointestinal: No Nausea, No Vomiting, No Diarrhea, No Constipation, No Abdominal Pain, No Heartburn, No Hematochezia, No Melena Genitourinary: No Dysuria, No Urinary Frequency, No Hematuria, No Urinary Incontinence, No Urgency Musculoskeletal: No Arthralgias, No Myalgias, No Joint Swelling, No Joint Stiffness, No Back Pain Skin: No Skin Lesions, No Pruritis, No Hair Changes Neuro: No Weakness, No Numbness, No Paresthesias, No Loss of Consciousness, No Syncope, No Dizziness, No Headache Psych: No Anxiety/Panic, No Depression, No Insomnia Heme: No Bruising, No Bleeding Lymph: No Adenopathy Endocrine: No Polyuria, No Polydipsia, No Temperature Intolerance PMFSH Past Medical History Medical History Acute on chronic blood loss anemia Anxiety Aortic stenosis Reported as mild on echocardiogram May 2018 with bowel rate of 1.4 cm2 with a loud holosystolic murmur CHF (congestive heart failure) With echocardiogram 2017 demonstrating mild concentric left ventricular hypertrophy EF of 55%, mild enlargement of left atrium, mild mitral valve regurgitation, mild aortic stenosis with valve area of 1.5 cm CVA (cerebral vascular accident) Depression Diabetes type 2, controlled Diabetic neuropathy Diabetic retinopathy End-stage renal disease on hemodialysis [facility]
--- NOTE | 2020-07-29 04:57 | ADMIMU ---
This patient, Bhargavi Gonzalez, was admitted to IMU status, and placed in IMU Room 214-01 at 2130. Patient/family oriented to hospital policies and general routines including ID bracelet, bed and alarms, visiting hours, pain management, procedures, bathroom and other care routines, personal items, smoking policy, room service/diet, and visiting hours. Information on how to activate the Rapid Response Team has been discussed. Patient/Family are encouraged to report perceived risks to care and to ask questions if they do not understand what they are told or what they should do.
--- NOTE | 2020-07-29 05:57 | PC.NURSE ---
This patient, Bhargavi Gonzalez, was transferred to [ 257] on 07/29/20 at 0445. Personal belongings sent with patient. Report given to [Johnson ]. Appropriate documentation sent with patient.
[2020-07-29 06:26] LABS: Basophils Percent Auto 0.4 % (0.2-1.2); Eosinophils Absolute Auto 0.5 K/mm3 (0-0.3); Eosinophils Percent Auto 4.4 % (0-4.4); Hematocrit 31.6 % (37.0-47.0); Hemoglobin 9.7 g/dL (12.0-15.0); Immature Granulocyte Absolute 0.07 K/mm3 (0.00-0.031); Immature Granulocyte Percent A 0.6 % (0-0.5); Lymphocytes Percent Auto 13.2 % (18.3-44.2); Mean Corpuscular HGB Conc 30.7 g/dl (32-36); Mean Corpuscular Hemoglobin 32.4 pg (26-34); Mean Corpuscular Volume 105.7 fl (80-100); Mean Platelet Volume 11.4 fl (7.4-10.4); Monocytes Absolute Auto 0.7 K/mm3 (0.1-0.6); Monocytes Percent Auto 5.9 % (2.6-8.5); Neutrophils Absolute Auto 8.6 K/mm3 (1.3-6.7); Neutrophils Percent Auto 75.5 % (45.5-73.1); Platelet Count Result 199 k/mm3 (150-375); Red Blood Count 2.99 M/mm3 (4.2-5.4); Red Cell Distribution Width 13.5 % (11.5-14.5); White Blood Count 11.4 K/mm3 (4.5-10.0)
[2020-07-29 06:37] LABS: Alanine Aminotransferase 15 U/L (4-35); Albumin Level 3.5 g/dL (3.5-5.1); Alkaline Phosphatase 57 U/L (38-126); Anion Gap 8 mmol/L (8-16); Aspartate Amino Transferase 27 U/L (14-36); Bilirubin,Total 0.4 mg/dL (0.2-1.3); Blood Urea Nitrogen 28 mg/dL (7-17); Calcium 8.4 mg/dL (8.4-10.2); Carbon Dioxide 31 mmol/L (22-30); Chloride 99 mmol/L (98-107); Estimated CRCL calculation 14 ml/min; Estimated Glomerular Filt Rate 8; Glucose 67 mg/dL (65-105); Potassium 4.2 mmol/L (3.4-5.0); Sodium 138 mmol/L (137-145)
[2020-07-29 06:59] LABS: Glucose Point of Care 100 (65-105)
--- NOTE | 2020-07-29 08:08 | P.PNIM_ITS ---
Progress Note: A&P Assessment and Plan (1) Acute hypotension: Code(s): I95.9 - Hypotension, unspecified Status: Acute Assessment and Plan: * Likely due to fluid shifts related to HD * likely a contributing factor (2) Acute respiratory failure with hypoxia and hypercapnia: Code(s): J96.01 - Acute respiratory failure with hypoxia; J96.02 - Acute respiratory failure with hypercapnia Status: Acute Assessment and Plan: * Adverse drug event may be contributing (diphenhydramine, gabapentin, hydrocodone) * Repeat ABG shows hypercarbia (PCO2 70, pH 7.26) with bicarb 30.8 * Suspect obesity-hypoventilation syndrome * Patient was previously told she had BAN, but no BiPAP/CPAP was prescribed * Has no PCP * Continuous pulse ox while on R/A (d/c nasal oxygen) * D/w pt importance of wearing positive pressure ventilation while at rest or asleep * Consider addition of MARITA activator * Pulmonology to see (3) Aortic stenosis: Qualifiers: Cardiac valve disease etiology: nonrheumatic Qualified Code(s): I35.0 - Nonrheumatic aortic (valve) stenosis Code(s): I35.0 - Nonrheumatic aortic (valve) stenosis Status: Acute Assessment and Plan: * Severe by 05/2020 echo with EF 40-45% * Will ask cardiology to re-evaluate in light of her hypotension, altered mental status (4) Chronic anticoagulation: Code(s): Z79.01 - morgue keeper (current) use of anticoagulants Status: Chronic Assessment and Plan: * Eliquis due to hx PE (5) Chronic anemia: Code(s): D64.9 - Anemia, unspecified Status: Chronic Assessment and Plan: * Stable (6) Diabetes: Qualifiers: Chronic kidney disease stage: on chronic dialysis Diabetes mellitus complication detail: with chronic kidney disease Diabetes mellitus complication status: with kidney complications Diabetes mellitus flow floor attendant insulin use: without snf use Diabetes mellitus type: type 2 Qualified Code(s): E11.22 - Type 2 diabetes mellitus with diabetic chronic kidney disease; N18.6 - End stage renal disease; Z99.2 - Dependence on renal dialysis Code(s): E11.9 - Type 2 diabetes mellitus without complications Status: Chronic (7) Hypertension: Qualifiers: Hypertension type: unspecified Qualified Code(s): I10 - Essential (primary) hypertension Code(s): I10 - Essential (primary) hypertension Status: Acute (8) End stage renal disease: Code(s): N18.6 - End stage renal disease Status: Chronic Assessment and Plan: * HD per nephrology Subjective Date/time seen: 07/29/20 08:08 Interval history: 60-year-old female admitted 07/28 due to episode of hypotension and altered mental status following dialysis. Drowsy. Has been sleeping most the morning. Tolerated diet. Denied pain. Had clear. Does not recall what happened yesterday. 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 Review of Systems Review of Systems: All systems reviewed & are unremarkable except as noted in HPI and below Exam Narrative: Exam Narrative: HEENT: EOMI, PERRL, sclerae nonicteric, pharyngeal mucosa pink and intact NECK: No JVD, adenopathy, or thyromegaly CHEST: Coarse bs. Normal effort. HEART: NL S1/S2, regular, 3/6 KIMI RUSB ABDOMEN: BS+, soft, nontender, no mass, no bruits EXTREMITIES: No cyanosis, edema, or clubbing NEUROLOGIC: CN intact and symmetric to inspection. MUSCULOS
--- NOTE | 2020-07-29 08:08 | PM.IMPN ---
Progress Note: A&P Assessment and Plan (1) Acute hypotension: Code(s): I95.9 - Hypotension, unspecified Status: Acute Assessment and Plan: Likely due to fluid shifts related to HD likely a contributing factor (2) Acute respiratory failure with hypoxia and hypercapnia: Code(s): J96.01 - Acute respiratory failure with hypoxia; J96.02 - Acute respiratory failure with hypercapnia Status: Acute Assessment and Plan: Adverse drug event may be contributing (diphenhydramine, gabapentin, hydrocodone) Repeat ABG shows hypercarbia (PCO2 70, pH 7.26) with bicarb 30.8 Suspect obesity-hypoventilation syndrome Patient was previously told she had BAN, but no BiPAP/CPAP was prescribed Has no PCP Continuous pulse ox while on R/A (d/c nasal oxygen) D/w pt importance of wearing positive pressure ventilation while at rest or asleep Consider addition of MARITA activator Pulmonology to see (3) Aortic stenosis: Qualifiers: Cardiac valve disease etiology: nonrheumatic Qualified Code(s): I35.0 - Nonrheumatic aortic (valve) stenosis Code(s): I35.0 - Nonrheumatic aortic (valve) stenosis Status: Acute Assessment and Plan: Severe by 05/2020 echo with EF 40-45% Will ask cardiology to re-evaluate in light of her hypotension, altered mental status (4) Chronic anticoagulation: Code(s): Z79.01 - tank terminal gauger (current) use of anticoagulants Status: Chronic Assessment and Plan: Eliquis due to hx PE (5) Chronic anemia: Code(s): D64.9 - Anemia, unspecified Status: Chronic Assessment and Plan: Stable (6) Diabetes: Qualifiers: Chronic kidney disease stage: on chronic dialysis Diabetes mellitus complication detail: with chronic kidney disease Diabetes mellitus complication status: with kidney complications Diabetes mellitus buttermaker helper insulin use: without buttermaker helper use Diabetes mellitus type: type 2 Qualified Code(s): E11.22 - Type 2 diabetes mellitus with diabetic chronic kidney disease; N18.6 - End stage renal disease; Z99.2 - Dependence on renal dialysis Code(s): E11.9 - Type 2 diabetes mellitus without complications Status: Chronic (7) Hypertension: Qualifiers: Hypertension type: unspecified Qualified Code(s): I10 - Essential (primary) hypertension Code(s): I10 - Essential (primary) hypertension Status: Acute (8) End stage renal disease: Code(s): N18.6 - End stage renal disease Status: Chronic Assessment and Plan: HD per nephrology Subjective Date/time seen: 07/29/20 08:08 Interval history: 60-year-old female admitted 07/28 due to episode of hypotension and altered mental status following dialysis. Drowsy. Has been sleeping most the morning. Tolerated diet. Denied pain. Had clear. Does not recall what happened yesterday. 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 Review of Systems Review of Systems: All systems reviewed & are unremarkable except as noted in HPI and below Exam Narrative: Exam Narrative: HEENT: EOMI, PERRL, sclerae nonicteric, pharyngeal mucosa pink and intact NECK: No JVD, adenopathy, or thyromegaly CHEST: Coarse bs. Normal effort. HEART: NL S1/S2, regular, 3/6 KIMI RUSB ABDOMEN: BS+, soft, nontender, no mass, no bruits EXTREMITIES: No cyanosis, edema, or clubbing NEUROLOGIC: CN intact and symmetric to inspection. MUSCULOSKELETAL: Tone and strength symmetric. PSYCH: Alert. Oriented to person, place, and time. Objective Data Vital Signs Vital Signs: Vital Signs - 24 hr 07/28/20 13:38 07/28/20 13:58 07/28/20 14:00 Temperature 98.2 F Pulse Rate 82 83 83 Respiratory Rate 26 H 15 16 Blood Pressure 108/65 115/77 Pulse Oximetry 78 L 100 100 07/28/20 14:01 07/28/20 14:03 07/28/20 14:15 Temperature Pulse Rate 83 83 83 Respiratory Rate 1
[2020-07-29] MEDS: CITALOPRAM HYDROBROMIDE 20 MG TABLET 40 MG PO (09:16)
[2020-07-29] MEDS: SEVELAMER CARBONATE 800 MG TABLET PO ×2 (09:16→16:22)
[2020-07-29] MEDS: carvediloL 25 MG TABLET PO ×2 (09:17→22:08)
[2020-07-29] MEDS: GABAPENTIN 100 MG CAPSULE 200 MG PO ×2 (09:17→16:22)
[2020-07-29] MEDS: FUROSEMIDE 40 MG TABLET PO (09:17)
[2020-07-29] MEDS: APIXABAN 5 MG TABLET PO ×2 (09:18→16:22)
[2020-07-29] MEDS: lisinopriL 10 MG TABLET PO (09:18)
[2020-07-29 10:44] LABS: Alveolar/Arterial O2 Gradient 27.2 mmHg; Base Excess ABG 2.4 mEq/l (+/-2.0); Fractional Inspired Oxygen 28 %; HCO3 ABG 30.8 mEq/l (22.0-26.0); Oxygen Content ABG 13.9 %vol (16.0-22.0); Oxygen Saturation ABG 95.3 % (95.0-100.0); PO2 ABG 89.7 mmHg (80.0-100.0); Total Hemoglobin 10.4 g/dL (12.0-18.0)
[2020-07-29 10:46] LABS: Device NASAL CANNULA; Modified Allen's Test Pass; PCO2 ABG 70.1 mmHg (35.0-45.0); Site Drawn RIGHT RADIAL
--- NOTE | 2020-07-29 11:30 | PC.NURSE ---
Patient oxygen saturation in 70%'s when sleeping. She has been refusing to wear bipap while resting or at bedtime. Discussed with her the importance of wearing the bipap when she is sleeping, as reflected by her ABG's today. Patient agreeable to wear it at this time, bipap applied. Sats increased to 99% on bipap. Dr. Saavedra aware of patients refusal this morning. Will monitor.
[2020-07-29 11:47] LABS: Glucose Point of Care 167 (65-105)
--- NOTE | 2020-07-29 12:09 | PC.NURSE ---
Spoke with RT in regards to change of Bipap settings ordered by Dr. Arellano as well as overnight apnea link study.
--- NOTE | 2020-07-29 14:24 | PM.CNCAR ---
Assessment and Plan Assessment and plan (1) Aortic stenosis: Qualifiers: Cardiac valve disease etiology: nonrheumatic Qualified Code(s): I35.0 - Nonrheumatic aortic (valve) stenosis Code(s): I35.0 - Nonrheumatic aortic (valve) stenosis Status: Acute Assessment and Plan: Reviewed echo from 2017 and May 2020, the aortic valve was not well seen in May 2020 images. It could be mod or severe aortic stenosis. Discussed if she needed aortic valve replaced if she would be interested and where would she like that done? She answered yes, and [facility]. Obtain BLAKE on Friday to determine severity of aortic stenosis. (2) Acute hypotension: Code(s): I95.9 - Hypotension, unspecified Status: Acute Assessment and Plan: She could be related to volume shifts with dialysis. (3) Hypertension: Qualifiers: Hypertension type: unspecified Qualified Code(s): I10 - Essential (primary) hypertension Code(s): I10 - Essential (primary) hypertension Status: Chronic Assessment and Plan: Would keep BP 130-'140's systolic range to prevent significant hypotention with dialysis. (4) Morbid obesity: Code(s): E66.01 - Morbid (severe) obesity due to excess calories Status: Acute Assessment and Plan: Unclear etiology for her sudden desaturation. (5) End stage renal disease: Code(s): N18.6 - End stage renal disease Status: Chronic History of Present Illness History of Present Illness Consult date/time: 07/29/20 14:24 Reason for consult: Aortic stenosis and hypotension. 60 yr old woman presented to hospital with weakness after hemodialysis. She has a history of aortic stenosis, ESRD on HD since 2017, DM, CVA, Pulmonary embolism in 2019, hypertension. Reports that after dialysis she felt weak. At times her BP is low after dialysis. She also desaturated in ED and is currently on BiPAP as she had hypercarbic respiratory acidosis of unclear etiology. ABG: PH 7.2, PCO2 70, O2 89 on FiO2 28%.Currently denies chest pain or sob. States she can walk only minimal distance from one room to the next and limited by fatigue and [place]. EKG: Sinus rhythm, prolonged QT interval. Echo in May 2020: EF 40-45%, grade II diastolic dysfunction, aortic valve is not well seen, mod-severe (HUE 1.0-1.3 cm2, dimensionless index of 0.5), severe MAC. Reason For Visit: Orthostatic hypotension, acute respiratory failure Review of Systems Review of Systems: All systems reviewed & are unremarkable except as noted in HPI and below Constitutional: Constitutional: Reports as per HPI, Denies chills, Reports fatigue and Denies fever(s) Cardiovascular: Cardiovascular: Reports as per HPI, Denies chest pain, Denies leg edema and Reports dyspnea on exertion Respiratory: Respiratory: Reports as per HPI and Reports dyspnea on exertion Gastrointestinal: Gastrointestinal: Reports as per HPI and Denies abdominal pain Genitourinary: Genitourinary: Reports as per HPI and Denies urinary frequency Musculoskeletal: Musculoskeletal: Reports as per HPI Neurologic: Reports as per HPI and Denies syncope PMFSH Past Medical History Medical History Acute on chronic blood loss anemia Anxiety Aortic stenosis Reported as mild on echocardiogram May 2018 with bowel rate of 1.4 cm2 with a loud holosystolic murmur CHF (congestive heart failure) With echocardiogram 2018 demonstrating mild concentric left ventricular hypertrophy EF of 55%, mild enlargement of left atrium, mild mitral valve regurgitation, mild aortic stenosis with valve area of 1.5 cm CVA (cerebral vascular accident) Depression Diabetes type 2, controlled Diabetic neuropathy Diabetic retinopathy End-stage renal disease on hemodialysis Since around 2016 Erosive gastritis Gastric ulcer Hepatic steatosis History of congestive heart failure Hypertension Melena Morbid obesity
[2020-07-29 17:29] LABS: Glucose Point of Care 87 (65-105)
[2020-07-29] MEDS: lamoTRIgine 25 MG TABLET PO (22:09)
[2020-07-29 23:55] LABS: Glucose Point of Care 163 (65-105)
[2020-07-30] VITALS (15 sets, daily range): BP systolic 100–134; BP diastolic 43–88; PULSE 70–81; RESP 13–20; TEMP 36.2–36.6; O2SAT 93–100
[2020-07-30 04:57] LABS: Alveolar/Arterial O2 Gradient 28.3 mmHg; Base Excess ABG -0.9 mEq/l (+/-2.0); Device NASAL CANNULA; Fractional Inspired Oxygen 28 %; HCO3 ABG 26.2 mEq/l (22.0-26.0); Modified Allen's Test Pass; Oxygen Content ABG 14.6 %vol (16.0-22.0); Oxygen Saturation ABG 97.2 % (95.0-100.0); Oxyhemoglobin 95.9 % THb (90.0-100.0); PCO2 ABG 55.4 mmHg (35.0-45.0); PO2 FiO2 Ratio Arterial Blood 3.79 %; Site Drawn RIGHT RADIAL; Total Hemoglobin 10.7 g/dL (12.0-18.0)
[2020-07-30 04:59] LABS: pH ABG 7.293 (7.350-7.450)
--- NOTE | 2020-07-30 07:09 | PM.CNNEP ---
Assessment and Plan Assessment and plan (1) End stage renal disease: Code(s): N18.6 - End stage renal disease Status: Chronic Assessment and Plan: Patient gets dialysis on Wednesdays and Fridays. She will be due tomorrow. Her potassium is fine. Her volume status looks pretty good. Will go for about 2L on dialysis tomorrow. (2) Aortic stenosis: Qualifiers: Cardiac valve disease etiology: nonrheumatic Qualified Code(s): I35.0 - Nonrheumatic aortic (valve) stenosis Code(s): I35.0 - Nonrheumatic aortic (valve) stenosis Status: Acute Assessment and Plan: Patient has significant aortic stenosis. saw her in consultation. He suggests that she may need valve replacement. She is going to get a BLAKE tomorrow. (3) Chronic anemia: Code(s): D64.9 - Anemia, unspecified Status: Chronic Assessment and Plan: Hemoglobin was 9.7 yesterday. Will give EPO on dialysis tomorrow. (4) Acute respiratory failure with hypoxia and hypercapnia: Code(s): J96.01 - Acute respiratory failure with hypoxia; J96.02 - Acute respiratory failure with hypercapnia Status: Acute Assessment and Plan: Mild respiratory acidosis. Getting supportive care (5) Hypertension: Qualifiers: Hypertension type: unspecified Qualified Code(s): I10 - Essential (primary) hypertension Code(s): I10 - Essential (primary) hypertension Status: Chronic Assessment and Plan: Her blood pressure is under good control. Her diastolic blood pressure is fairly low. (6) Diabetes: Qualifiers: Diabetes mellitus type: type 2 Diabetes mellitus shelter insulin use: without shelter use Diabetes mellitus complication status: with kidney complications Diabetes mellitus complication detail: with chronic kidney disease Chronic kidney disease stage: on chronic dialysis Qualified Code(s): E11.22 - Type 2 diabetes mellitus with diabetic chronic kidney disease; N18.6 - End stage renal disease; Z99.2 - Dependence on renal dialysis Code(s): E11.9 - Type 2 diabetes mellitus without complications Status: Chronic Assessment and Plan: On Accu-Cheks and sliding-scale insulin (7) Chronic anticoagulation: Code(s): Z79.01 - emt intermediate (current) use of anticoagulants Status: Chronic Assessment and Plan: The patient is on Eliquis History of Present Illness Reason for Consult Consult date: 07/30/20 Chief Complaint Chief complaint: Orthostatic hypotension, acute respiratory failure History of Present Illness Narrative: Bhargavi is a very pleasant 60-year-old lady who has multiple medical problems including end-stage renal disease on dialysis Wednesdays and Fridays, significant aortic stenosis, congestive heart failure, myocardial infarction, diabetes, hypertension, morbid obesity, stroke, anemia, renal osteodystrophy, esophagitis, and Pulmonary embolism. The patient miss dialysis on Friday. On Friday she went in and had 6L on. They were able to remove all 6L. She went home and she felt weak. She does not wear are a lot about Friday night except that she remembers being sent to the emergency room. In the ER she was evaluated. Her blood pressure is okay at the time. She was lethargic. Blood gases showed respiratory acidosis. She was admitted and observed overnight and yesterday she felt fine. She does have aortic stenosis and so Dr. Lemon saw her and reviewed echocardiogram spent from the past. He ordered a BLAKE for tomorrow morning. He feels like she needs of attention paid to her aortic valve with replacement 1 way or the other. She wants to have this done at [facility]. She has had diabetes for many years. It has been pretty well controlled. She has had hypertension for many years as well. It has also been very well controlled. She has been on dialysis for about 4 years. Generally she gains anywhere from 1-4 L. Sh
[2020-07-30 07:32] LABS: Glucose Point of Care 143 (65-105)
--- NOTE | 2020-07-30 08:00 | ECG_ITS ---
Measurements Intervals [place] Rate: 77 P: -7 UT: 177 QRS: -25 QRSD: 103 T: 53 QT: 430 QTc: 488 Interpretive Statements SINUS RHYTHM BORDERLINE ST-T WAVE ABNORMALITY- HIGH LATERAL LEADS BASELINE WANDER- I, II, III, AVL BORDERLINE ECG Electronically Signed On 07-30-2020 9:32:11 TEST EXAMINER by Everett Lemon D.O.
--- NOTE | 2020-07-30 08:23 | P.PNIM_ITS ---
Progress Note: A&P Assessment and Plan (1) Sleep apnea: Code(s): G47.30 - Sleep apnea, unspecified Status: Acute (2) CHF (congestive heart failure): Code(s): I50.9 - Heart failure, unspecified Status: Acute (3) Acute hypotension: Code(s): I95.9 - Hypotension, unspecified Status: Acute Assessment and Plan: * Likely due to fluid shifts related to HD * likely a contributing factor (4) Acute respiratory failure with hypoxia and hypercapnia: Code(s): J96.01 - Acute respiratory failure with hypoxia; J96.02 - Acute respiratory failure with hypercapnia Status: Acute Assessment and Plan: * Adverse drug event might have contributed (diphenhydramine, gabapentin, hydrocodone) * Repeat ABG shows hypercarbia (PCO2 70, pH 7.26) with bicarb 30.8 * Obesity-hypoventilation syndrome with BAN confirmed by [facility] * Patient was previously told she had BAN, but no BiPAP/CPAP was prescribed * D/w pt importance of wearing positive pressure ventilation while at rest or asleep * D/w Dr. Arellano plans for outpatient split-night sleep study to qualify her for CPAP (5) Aortic stenosis: Qualifiers: Cardiac valve disease etiology: nonrheumatic Qualified Code(s): I35.0 - Nonrheumatic aortic (valve) stenosis Code(s): I35.0 - Nonrheumatic aortic (valve) stenosis Status: Acute Assessment and Plan: * Severe by 05/2020 echo with EF 40-45% * Dr. Jean-Baptiste scheduled BLAKE for 07/31 (6) Chronic anticoagulation: Code(s): Z79.01 - detention (current) use of anticoagulants Status: Chronic Assessment and Plan: * Eliquis due to hx PE (7) Chronic anemia: Code(s): D64.9 - Anemia, unspecified Status: Chronic Assessment and Plan: * Stable (8) Diabetes: Qualifiers: Diabetes mellitus type: type 2 Diabetes mellitus manager intermediate insulin use: without manager intermediate use Diabetes mellitus complication status: with kidney complications Diabetes mellitus complication detail: with chronic kidney disease Chronic kidney disease stage: on chronic dialysis Qualified Code(s): E11.22 - Type 2 diabetes mellitus with diabetic chronic kidney disease; N18.6 - End stage renal disease; Z99.2 - Dependence on renal dialysis Code(s): E11.9 - Type 2 diabetes mellitus without complications Status: Chronic (9) Hypertension: Qualifiers: Hypertension type: unspecified Qualified Code(s): I10 - Essential (primary) hypertension Code(s): I10 - Essential (primary) hypertension Status: Acute Assessment and Plan: * Stable (10) End stage renal disease: Code(s): N18.6 - End stage renal disease Status: Chronic Assessment and Plan: * HD per nephrology * MWF schedule, but has been noncompliant Subjective Date/time seen: 07/30/20 08:23 Interval history: 60-year-old female admitted 07/28 due to episode of hypotension and altered mental status following dialysis. Does not recall what happened 07/28. 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 07/30: Tolerated BiPAP. Feels better this morning.Tolerated diet. Denied pain. Review of Systems Review of Systems: All systems reviewed & are unremarkable except as noted in HPI and below Exam Narrative: Exam Narrative: HEENT: EOMI, PERRL, sclerae nonicteric, pharyngeal mucosa pink and intact NECK: No JVD CHEST: Coarse bs. N
--- NOTE | 2020-07-30 08:23 | PM.IMPN ---
Progress Note: A&P Assessment and Plan (1) Sleep apnea: Code(s): G47.30 - Sleep apnea, unspecified Status: Acute (2) CHF (congestive heart failure): Code(s): I50.9 - Heart failure, unspecified Status: Acute (3) Acute hypotension: Code(s): I95.9 - Hypotension, unspecified Status: Acute Assessment and Plan: Likely due to fluid shifts related to HD likely a contributing factor (4) Acute respiratory failure with hypoxia and hypercapnia: Code(s): J96.01 - Acute respiratory failure with hypoxia; J96.02 - Acute respiratory failure with hypercapnia Status: Acute Assessment and Plan: Adverse drug event might have contributed (diphenhydramine, gabapentin, hydrocodone) Repeat ABG shows hypercarbia (PCO2 70, pH 7.26) with bicarb 30.8 Obesity-hypoventilation syndrome with BAN confirmed by [facility] Patient was previously told she had BAN, but no BiPAP/CPAP was prescribed D/w pt importance of wearing positive pressure ventilation while at rest or asleep D/w Dr. Arellano plans for outpatient split-night sleep study to qualify her for CPAP (5) Aortic stenosis: Qualifiers: Cardiac valve disease etiology: nonrheumatic Qualified Code(s): I35.0 - Nonrheumatic aortic (valve) stenosis Code(s): I35.0 - Nonrheumatic aortic (valve) stenosis Status: Acute Assessment and Plan: Severe by 05/2020 echo with EF 40-45% Dr. Jean-Baptiste scheduled BLAKE for 07/31 (6) Chronic anticoagulation: Code(s): Z79.01 - superintendent terminal (current) use of anticoagulants Status: Chronic Assessment and Plan: Eliquis due to hx PE (7) Chronic anemia: Code(s): D64.9 - Anemia, unspecified Status: Chronic Assessment and Plan: Stable (8) Diabetes: Qualifiers: Diabetes mellitus type: type 2 Diabetes mellitus senior care insulin use: without senior care use Diabetes mellitus complication status: with kidney complications Diabetes mellitus complication detail: with chronic kidney disease Chronic kidney disease stage: on chronic dialysis Qualified Code(s): E11.22 - Type 2 diabetes mellitus with diabetic chronic kidney disease; N18.6 - End stage renal disease; Z99.2 - Dependence on renal dialysis Code(s): E11.9 - Type 2 diabetes mellitus without complications Status: Chronic (9) Hypertension: Qualifiers: Hypertension type: unspecified Qualified Code(s): I10 - Essential (primary) hypertension Code(s): I10 - Essential (primary) hypertension Status: Acute Assessment and Plan: Stable (10) End stage renal disease: Code(s): N18.6 - End stage renal disease Status: Chronic Assessment and Plan: HD per nephrology MWF schedule, but has been noncompliant Subjective Date/time seen: 07/30/20 08:23 Interval history: 60-year-old female admitted 07/28 due to episode of hypotension and altered mental status following dialysis. Does not recall what happened 07/28. Remembers leaving dialysis with heard skip load driver and getting home and then has no recollection of what happened afterwards. 07/30: Tolerated BiPAP. Feels better this morning.Tolerated diet. Denied pain. Review of Systems Review of Systems: All systems reviewed & are unremarkable except as noted in HPI and below Exam Narrative: Exam Narrative: HEENT: EOMI, PERRL, sclerae nonicteric, pharyngeal mucosa pink and intact NECK: No JVD CHEST: Coarse bs. Normal effort. HEART: NL S1/S2, regular, 3/6 KIMI RUSB ABDOMEN: BS+, soft, nontender, no mass, no bruits EXTREMITIES: No cyanosis, edema, or clubbing NEUROLOGIC: CN intact and symmetric to inspection. MUSCULOSKELETAL: Tone and strength symmetric. PSYCH: Alert. Oriented to person, place, and time. Objective Data Vital Signs Vital Signs: Vital Signs - 24 hr 07/29/20 08:27 07/29/20 09:17 07/29/20 10:39 Temperature 97.2 F L Pulse Rate 84 67 Respira
[2020-07-30 08:41] LABS: Glucose Point of Care 160 (65-105)
[2020-07-30] MEDS: GABAPENTIN 100 MG CAPSULE 200 MG PO ×2 (09:00→16:41)
[2020-07-30] MEDS: CITALOPRAM HYDROBROMIDE 20 MG TABLET 40 MG PO (09:00)
[2020-07-30] MEDS: SEVELAMER CARBONATE 800 MG TABLET PO ×3 (09:00→16:41)
[2020-07-30] MEDS: APIXABAN 5 MG TABLET PO ×2 (09:00→16:41)
[2020-07-30] MEDS: FUROSEMIDE 40 MG TABLET PO (09:00)
[2020-07-30] MEDS: lisinopriL 10 MG TABLET PO (09:00)
[2020-07-30] MEDS: carvediloL 25 MG TABLET PO ×2 (09:00→20:39)
--- NOTE | 2020-07-30 09:07 | PM.PNCARD ---
Progress Note: A&P Assessment and Plan (1) Aortic stenosis: Qualifiers: Cardiac valve disease etiology: nonrheumatic Qualified Code(s): I35.0 - Nonrheumatic aortic (valve) stenosis Code(s): I35.0 - Nonrheumatic aortic (valve) stenosis Status: Acute Assessment and Plan: Reviewed echo from 2017 and May 2020, the aortic valve was not well seen in May 2020 images. It could be mod or severe aortic stenosis. Discussed if she needed aortic valve replaced if she would be interested and where would she like that done? She answered yes, and [facility]. Obtain BLAKE on Friday to determine severity of aortic stenosis. (2) Acute hypotension: Code(s): I95.9 - Hypotension, unspecified Status: Acute Assessment and Plan: This could be related to volume shifts with dialysis. (3) Hypertension: Qualifiers: Hypertension type: unspecified Qualified Code(s): I10 - Essential (primary) hypertension Code(s): I10 - Essential (primary) hypertension Status: Chronic Assessment and Plan: Would keep BP 130-'140's systolic range to prevent significant hypotention with dialysis. (4) Morbid obesity: Code(s): E66.01 - Morbid (severe) obesity due to excess calories Status: Acute Assessment and Plan: Unclear etiology for her sudden desaturation. (5) End stage renal disease: Code(s): N18.6 - End stage renal disease Status: Chronic Subjective Date/time seen: 07/30/20 09:07 She is alert and oriented this morning, off BiPAP. Relates that she had dialysis on Friday, went home and she must have hit her Life Alert button, since she does not recall anything else until she realizes she was in our ER. Denies chest pain or sob now. States she probably has sleep apnea but has not had sleep study. She says she has mild COPD due to remote smoking history. Exam Const: General: cooperative, healthy appearing and comfortable Resp: Auscultation: clear to auscultation bilaterally, no crackles, no rales, no rhonchi and no wheezes Cardio: Jugular venous distension: no JVD Rate: regular rate Rhythm: regular rhythm Heart sounds: Murmur heart sound present (III/ systolic murmur RICS) Peripheral pulses: dorsalis pedis present GI: GI Palp: No abdominal tenderness and Yes Soft to palpation Neuro: General: oriented to person, oriented to place and oriented to time Extrem: Right lower extremity: no edema Left lower extremity: no edema Objective Data Vital Signs Vital Signs: Vital Signs - 24 hr 07/29/20 09:17 07/29/20 10:39 07/29/20 12:00 Temperature 97.2 F L Pulse Rate 84 67 75 Respiratory Rate 20 Blood Pressure 109/43 L Pulse Oximetry 97 07/29/20 12:35 07/29/20 14:48 07/29/20 16:00 Temperature Pulse Rate 76 77 75 Respiratory Rate 19 20 Blood Pressure Pulse Oximetry 97 99 07/29/20 18:07 07/29/20 18:20 07/29/20 20:00 Temperature 97 F L Pulse Rate 79 72 Respiratory Rate 18 Blood Pressure 131/116 H 128/48 L Pulse Oximetry 97 07/29/20 21:21 07/29/20 21:47 07/29/20 21:48 Temperature 97.3 F L 97.3 F L Pulse Rate 75 82 82 Respiratory Rate 21 H 20 20 Blood Pressure 122/43 L 113/39 L Pulse Oximetry 98 98 98 07/29/20 22:05 07/29/20 22:08 07/29/20 22:28 Temperature Pulse Rate 82 78 Respiratory Rate Blood Pressure Pulse Oximetry 90 90 07/30/20 00:00 07/30/20 04:00 07/30/20 06:00 Temperature 97.2 F L Pulse Rate 80 76 74 Respiratory Rate 16 Blood Pressure 100/54 L Pulse Oximetry 98 07/30/20 09:00 Temperature Pulse Rate 78 Respiratory Rate Blood Pressure Pulse Oximetry Intake/Output Intake/Output: Intake & Output 07/27/20 07/28/20 07/29/20 07/30/20 23:59 23:59 23:59 23:59 Intake Total 1180 300 Output Total 0 0 Balance 1180 300 Meds/Results Medications: Active Medications Generic Name Dose Route Start Last Admin Trade Name Freq PRN Reason Stop Dos
[2020-07-30 11:01] LABS: Hepatitis B Surface Antigen Negative (Negative)
--- NOTE | 2020-07-30 11:51 | PM.PNPUL ---
Progress Note: A&P Assessment and Plan (1) Aortic stenosis: Qualifiers: Cardiac valve disease etiology: nonrheumatic Qualified Code(s): I35.0 - Nonrheumatic aortic (valve) stenosis Code(s): I35.0 - Nonrheumatic aortic (valve) stenosis Status: Acute Assessment and Plan: Being evaluated for definitive treatment such as TAVR or AVR. (2) Acute and chronic respiratory failure with hypercapnia: Code(s): J96.22 - Acute and chronic respiratory failure with hypercapnia Status: Acute (3) End stage renal disease: Code(s): N18.6 - End stage renal disease Status: Chronic (4) Sleep apnea: Code(s): G47.30 - Sleep apnea, unspecified Status: Acute Assessment and Plan: did not qualify for home BIPAP based on apnea link Will switch CPAP while in house at 12 cm H20 QHS and while napping during the day. I will order a split night sleep study as outpatient as she may have a complex sleep disorder based on her CHF with depressed EF rather than just BAN. This would be ideal although if home sleep study can be done faster this may be be preferred as to not delay diagnosis and treatment. Subjective Date/time seen: 07/30/20 11:51 Interval history: 60 y/o obese female with h/o HTN, ESRD, and aortic stenosis presented with acute on chronic hypercapnic respiratory failure, CHF. She admits to only going to dialysis 2X/week. She was found to have moderate to severe aortic stenosis with an EF of 45% by Echo and is due to have a BLAKE tomorrow to better clarify. She is feeling a bit bit better on BIPAP QHS for a few nights with improved blood gases. She admits to daytime sleepiness, fatigue, frequent nocturnal awakenings. She did have orthopnea and LE edema on admission. She's never been on CPAP. Last night we did an apnea link with 2 liters nasal cannula and no BIPAP and there were no significant nocturnal desaturations. Review of Systems Review of Systems: All systems reviewed & are unremarkable except as noted in HPI and below Exam Const: General: cooperative, healthy appearing, comfortable, no acute distress and well developed Nutritional Appearance: obese Orientation/consciousness: oriented to person, oriented to place, oriented to time and patient oriented x3 Limitations: no limitations HENMT: Head: normal to inspection, normocephalic and atraumatic Eyes: General: appearance normal, both eyes and all related structures Neck: Neck: trachea midline and supple Resp: Effort & Inspection: normal respiratory effort Auscultation: crackles bilateral and diminished lung sounds Cardio: Jugular venous distension: no JVD Rate: regular rate Rhythm: regular rhythm Heart sounds: S1 normal heart sound present and S2 normal heart sound present GI: Inspection: normal to inspection Auscultation: normal bowel sounds Skin: General skin exam: normal color and no rashes or lesions noted Neuro: General: oriented to person, oriented to place, oriented to time and patient oriented x3 Cognition (Neuro): normal cognition Speech: normal speech Gait exam (Neuro): Normal gait present Extrem: General: normal to inspection and no clubbing, cyanosis or edema Psych: Appearance: grossly normal and well kempt Mental Status: mental status grossly normal Objective Data Vital Signs Vital Signs: Vital Signs - 24 hr 07/29/20 12:00 07/29/20 12:35 07/29/20 14:48 Temperature Pulse Rate 75 76 77 Respiratory Rate 19 20 Blood Pressure Pulse Oximetry 97 99 07/29/20 16:00 07/29/20 18:07 07/29/20 18:20 Temperature 36.1 C L Pulse Rate 75 79 Respiratory Rate 18 Blood Pressure 131/116 H 128/48 L Pulse Oximetry 97 07/29/20 20:00 07/29/20 21:21 07/29/20 21:47 Temperature 36.3 C L Pulse Rate 72 75 82 Respiratory Rate 21 H 20 Blood Pressure 122/43 L Pulse Oximetry 98 98 07/29/20 21:48 07/29/20 22:05 07/29/20 22:08 Temperature 36.3 C L Pulse Rate 82 82 Respirat
[2020-07-30 11:53] LABS: Glucose Point of Care 120 (65-105)
--- NOTE | 2020-07-30 11:58 | PC.NURSE ---
Discussed with RT, Debi, in regards to Dr. Arellano's new Cpap orders.
[2020-07-30 16:42] LABS: Glucose Point of Care 117 (65-105)
[2020-07-30] MEDS: lamoTRIgine 25 MG TABLET PO (20:39)
[2020-07-30 21:07] LABS: Glucose Point of Care 164 (65-105)
[2020-07-31] VITALS (35 sets, daily range): BP systolic 109–167; BP diastolic 43–87; PULSE 62–92; RESP 12–22; TEMP 36.2–37.2; O2SAT 94–100
[2020-07-31 05:56] LABS: Alanine Aminotransferase 11 U/L (4-35); Albumin Level 3.2 g/dL (3.5-5.1); Alkaline Phosphatase 65 U/L (38-126); Anion Gap 10 mmol/L (8-16); Aspartate Amino Transferase 15 U/L (14-36); Bilirubin,Total 0.3 mg/dL (0.2-1.3); Blood Urea Nitrogen 55 mg/dL (7-17); Calcium 8.1 mg/dL (8.4-10.2); Carbon Dioxide 28 mmol/L (22-30); Chloride 96 mmol/L (98-107); Estimated CRCL calculation 10 ml/min; Estimated Glomerular Filt Rate 5; Glucose 95 mg/dL (65-105); Phosphorus 8.1 mg/dL (2.5-4.5); Potassium 5.4 mmol/L (3.4-5.0); Sodium 134 mmol/L (137-145)
--- NOTE | 2020-07-31 07:30 | ECHO_ITS ---
Patient Info Name: Bhargavi Gonzalez Age: 60 years : 1960 Gender: Female Ht: 66 in Wt: 285 lbs BSA: 2.53 m2 Technical Quality: Good Exam Date: 07/31/2020 7:28 AM Exam Location: [facility] Card Pulmonary Patient Status: Inpatient Admit Date: 07/28/2020 Staff Ordering Physician: Everett Lemon DO [place] Management Specialist: Karen Lucia RDCS Attending Provider: Emre Jarrett MD Referring Physician: Ion REYES; Exam Type: CA echo transesophageal Study Info Indications I35.0 - Nonrheumatic aortic (valve) stenosis Complete two-dimensional, color flow and Doppler transesophageal study is performed. Procedure Details Risk/benefits/alternative treatment discussed with patient and she is agreeable to BLAKE. Vitals are stable. Cetacaine spray administered twice to posterior oropharynx. Versed 1 mg and Fentanyl 25 mcg IV given. BLAKE probe advanced and she swallowed it without incident. Vitals remain stable. BLAKE withdrawn and no blood noted on BLAKE probe tip. She tolerated procedure well without complications. Summary 1. Left ventricular chamber dimension is normal. 2. Left ventricular systolic function is mildly reduced with an visually estimated ejection fraction of 45-50%. 3. There is severe concentric increased left ventricular wall thickness. 4. Left atrial chamber dimension is moderately enlarged. 5. The aortic valve is probably bicuspid with a raphe between right and left coronary cusps. 6. There is severe to critical aortic valve stenosis. By planimetry, aortic valve area ranged between 0.5-0.7 cm2. 7. There is severe aortic valve sclerosis. 8. The mitral valve has severely calcified annulus. 9. There is mild mitral valve regurgitation. Left Ventricle Left ventricular systolic function is mildly reduced with an visually estimated ejection fraction of 45-50%. Left ventricular chamber dimension is normal. There is severe concentric increased left ventricular wall thickness. The left ventricular diastolic function is indeterminate. Right Ventricle Right ventricular chamber dimension is normal. Right ventricular systolic function is normal. Left Atria Left atrial chamber dimension is moderately enlarged. Right Atria Right atrial chamber dimension is normal. Atrial Septum Intact interatrial septum visualized by agitated saline imaging. Atrial Appendage There is no thrombus visualized in the left atrial appendage. Aortic Valve The aortic valve is probably bicuspid with a raphe between right and left coronary cusps. There is severe to critical aortic valve stenosis. By planimetry, aortic valve area ranged between 0.5-0.7 cm2. There is severe aortic valve sclerosis. There is no aortic valve regurgitation. Pulmonic Valve There is no pulmonic regurgitation. Mitral Valve The mitral valve has severely calcified annulus. There is no mitral valve stenosis. There is mild mitral valve regurgitation. Tricuspid Valve There is no tricuspid valve regurgitation. Pericardium/Pleural There is no pericardial effusion. Inferior Vena Cava Not well visualized inferior vena cava. Aorta The aortic root size at the sinus of Valsalva is normal. Aortic Valve Name Value Normal AV 2D/MM AV Area (Planimetry) 0.6 cm2
--- NOTE | 2020-07-31 07:35 | PCDIET ---
Patient to BLAKE per wheelchair, oxygen at 2L NC.
[2020-07-31 07:43] LABS: Glucose Point of Care 82 (65-105)
--- NOTE | 2020-07-31 08:14 | PM.PNCARD ---
Progress Note: A&P Assessment and Plan (1) Aortic stenosis: Qualifiers: Cardiac valve disease etiology: nonrheumatic Qualified Code(s): I35.0 - Nonrheumatic aortic (valve) stenosis Code(s): I35.0 - Nonrheumatic aortic (valve) stenosis Status: Acute Assessment and Plan: Reviewed echo from 2017 and May 2020, the aortic valve was not well seen in May 2020 images. It could be mod or severe aortic stenosis. Discussed if she needed aortic valve replaced if she would be interested and where would she like that done? She answered yes, and [facility]. BLAKE this morning on 07/31/20 shows EF 45-50%, severe by planimetry between 0.5-0.7 cm2. Possible bicuspid AV with severe calcification. Will call [facility] to get accepting director [employer] for transfer for either surgical AVR or TAVR. (2) Acute hypotension: Code(s): I95.9 - Hypotension, unspecified Status: Acute Assessment and Plan: This could be related to volume shifts with dialysis worse with severe . (3) Hypertension: Qualifiers: Hypertension type: unspecified Qualified Code(s): I10 - Essential (primary) hypertension Code(s): I10 - Essential (primary) hypertension Status: Chronic Assessment and Plan: Would keep BP 130-'140's systolic range to prevent significant hypotention with dialysis. (4) Morbid obesity: Code(s): E66.01 - Morbid (severe) obesity due to excess calories Status: Acute Assessment and Plan: Unclear etiology for her sudden desaturation. (5) End stage renal disease: Code(s): N18.6 - End stage renal disease Status: Chronic Subjective Date/time seen: 07/31/20 08:14 Denies chest pain or sob. Exam Const: General: cooperative, healthy appearing and comfortable Resp: Auscultation: clear to auscultation bilaterally, no crackles, no rales, no rhonchi and no wheezes Cardio: Jugular venous distension: no JVD Rate: regular rate Rhythm: regular rhythm Heart sounds: Murmur heart sound present (III/ systolic murmur RICS) Peripheral pulses: dorsalis pedis present GI: GI Palp: No abdominal tenderness and Yes Soft to palpation Neuro: General: oriented to person, oriented to place and oriented to time Extrem: Right lower extremity: no edema Left lower extremity: no edema Objective Data Vital Signs Vital Signs: Vital Signs - 24 hr 07/30/20 09:00 07/30/20 10:58 07/30/20 12:00 Temperature Pulse Rate 78 78 Respiratory Rate Blood Pressure 111/88 Pulse Oximetry 07/30/20 14:00 07/30/20 16:00 07/30/20 17:55 Temperature 97.4 F L Pulse Rate 78 78 77 Respiratory Rate 20 15 Blood Pressure 128/43 L Pulse Oximetry 100 93 07/30/20 20:00 07/30/20 20:39 07/30/20 21:44 Temperature 97.5 F L Pulse Rate 78 70 Respiratory Rate 18 Blood Pressure 119/47 L 116/53 L Pulse Oximetry 99 07/30/20 21:45 07/30/20 23:34 07/31/20 00:00 Temperature 97.5 F L Pulse Rate 78 75 73 Respiratory Rate 18 13 Blood Pressure 119/47 L Pulse Oximetry 99 93 07/31/20 04:00 07/31/20 06:00 07/31/20 07:35 Temperature 97.6 F Pulse Rate 73 75 Respiratory Rate 16 Blood Pressure 123/54 L Pulse Oximetry 98 97 Intake/Output Intake/Output: Intake & Output 07/28/20 07/29/20 07/30/20 07/31/20 23:59 23:59 23:59 23:59 Intake Total 1180 1040 150 Output Total 0 0 Balance 1180 1040 150 Meds/Results Medications: Active Medications Generic Name Dose Route Start Last Admin Trade Name Freq PRN Reason Stop Dose Admin Hydrocodone Bitart/Acetaminophen 1 tab 07/29/20 02:08 Hydrocodone/Acetaminophen (*Crx) 5-325 Mg Tablet PO Q4H PRN Pain Rated 7-10 Apixaban 5 mg 07/29/20 09:00 07/30/20 16:41 Apixaban 5 Mg Tablet PO 5 mg BID BRUNILDA Administration Carvedilol 25 mg 07/29/20 09:00 07/30/20 20:39 Carvedilol 25 Mg Tablet PO 25 mg Q12HR BRUNILDA Administration Citalopram Hydrobromide 40 mg
--- NOTE | 2020-07-31 08:41 | SUR.OPER ---
0755 Dr. Lemon at the bedside talking with patient. 0801 procedure started, probe introduced without difficulty. 0805 Bubbler study complete. 0807 probe removed, procedure complete. Patient tolerated well. 0830 patient resting comfortably in bed, alert and oriented. taking ice chips without difficulty.
--- NOTE | 2020-07-31 09:20 | PC.NURSE ---
Patient returned from BLAKE.
[2020-07-31] MEDS: lisinopriL 10 MG TABLET PO (10:25)
[2020-07-31] MEDS: SEVELAMER CARBONATE 800 MG TABLET PO ×2 (10:25→18:23)
[2020-07-31] MEDS: APIXABAN 5 MG TABLET PO ×2 (10:26→18:23)
[2020-07-31] MEDS: CITALOPRAM HYDROBROMIDE 20 MG TABLET 40 MG PO (10:26)
[2020-07-31] MEDS: GABAPENTIN 100 MG CAPSULE 200 MG PO ×2 (10:26→18:23)
[2020-07-31] MEDS: carvediloL 25 MG TABLET PO (10:26)
[2020-07-31] MEDS: FUROSEMIDE 40 MG TABLET PO (10:26)
[2020-07-31 10:36] LABS: Glucose Point of Care 83 (65-105)
[2020-07-31] MEDS: fentaNYL CITRATE INJ (*CRX) 100 MCG/2 ML VIAL (10:43)
[2020-07-31] MEDS: MIDAZOLAM HCL (*CRX) 2 MG/2 ML VIAL (10:44)
--- NOTE | 2020-07-31 13:05 | PM.PNPUL ---
Progress Note: A&P Assessment and Plan (1) Aortic stenosis: Qualifiers: Cardiac valve disease etiology: nonrheumatic Qualified Code(s): I35.0 - Nonrheumatic aortic (valve) stenosis Code(s): I35.0 - Nonrheumatic aortic (valve) stenosis Status: Acute Assessment and Plan: Being evaluated for definitive treatment such as TAVR or AVR. (2) Acute and chronic respiratory failure with hypercapnia: Code(s): J96.22 - Acute and chronic respiratory failure with hypercapnia Status: Acute (3) End stage renal disease: Code(s): N18.6 - End stage renal disease Status: Chronic (4) Sleep apnea: Code(s): G47.30 - Sleep apnea, unspecified Status: Acute Assessment and Plan: Did not qualify for home BIPAP based on apnea link Continue CPAP while in house at 12 cm H20 QHS and while napping during the day. I will order a split night sleep study as outpatient as she may have a complex sleep disorder based on her CHF with depressed EF rather than just BAN. This would be ideal although if home sleep study can be done faster this may be be preferred as to not delay diagnosis and treatment. Subjective Date/time seen: 07/31/20 13:05 Interval history: Continuously sleeping in bed but awakens normally. She tolerated CPAP 12 cm H20 last night. Unfortunately she can not get home CPAP therapy until she has a sleep study which I've ordered. BLAKE shows severe/critical and is going to [facility] for TAVR/AVR evaluation. Review of Systems Review of Systems: All systems reviewed & are unremarkable except as noted in HPI and below Exam Const: General: cooperative, healthy appearing, comfortable, no acute distress and well developed Nutritional Appearance: obese Orientation/consciousness: oriented to person, oriented to place, oriented to time and patient oriented x3 Limitations: no limitations HENMT: Head: normal to inspection, normocephalic and atraumatic Eyes: General: appearance normal, both eyes and all related structures Neck: Neck: trachea midline and supple Resp: Effort & Inspection: normal respiratory effort Auscultation: crackles bilateral and diminished lung sounds Cardio: Jugular venous distension: no JVD Rate: regular rate Rhythm: regular rhythm Heart sounds: S1 normal heart sound present and S2 normal heart sound present GI: Inspection: normal to inspection Auscultation: normal bowel sounds Skin: General skin exam: normal color and no rashes or lesions noted Neuro: General: oriented to person, oriented to place, oriented to time and patient oriented x3 Cognition (Neuro): normal cognition Speech: normal speech Gait exam (Neuro): Normal gait present Extrem: General: normal to inspection and no clubbing, cyanosis or edema Psych: Appearance: grossly normal and well kempt Mental Status: mental status grossly normal Objective Data Vital Signs Vital Signs: Vital Signs - 24 hr 07/30/20 14:00 07/30/20 16:00 07/30/20 17:55 Temperature 36.3 C L Pulse Rate 78 78 77 Respiratory Rate 20 15 Blood Pressure 128/43 L Pulse Oximetry 100 93 07/30/20 20:00 07/30/20 20:39 07/30/20 21:44 Temperature 36.4 C L Pulse Rate 78 70 Respiratory Rate 18 Blood Pressure 119/47 L 116/53 L Pulse Oximetry 99 07/30/20 21:45 07/30/20 23:34 07/31/20 00:00 Temperature 36.4 C L Pulse Rate 78 75 73 Respiratory Rate 18 13 Blood Pressure 119/47 L Pulse Oximetry 99 93 07/31/20 04:00 07/31/20 06:00 07/31/20 07:35 Temperature 36.4 C Pulse Rate 73 75 Respiratory Rate 16 Blood Pressure 123/54 L Pulse Oximetry 98 97 07/31/20 07:50 07/31/20 08:00 07/31/20 08:05 Temperature Pulse Rate 84 74 88 Respiratory Rate 16 15 18 Blood Pressure 113/47 L 115/48 L 109/47 L Pulse Oximetry 96 94 97 07/31/20 08:10 07/31/20 08:15 07/31/20 08:30 Temperature Pulse Rate 87 84 82 Respiratory Rate 14 12 12 Blood Pressure 110/44 L 109/45 L 114/60 Puls
--- NOTE | 2020-07-31 14:11 | PC.NURSE ---
Patient to dialysis per bed.
[2020-07-31] MEDS: HEPARIN SODIUM 1,000 UNITS/ML VIAL 500 UNITS IV PUSH ×2 (14:36→15:54)
[2020-07-31] MEDS: HEPARIN SODIUM 1,000 UNITS/ML VIAL 1000 UNITS IV PUSH (14:36)
--- NOTE | 2020-07-31 16:17 | PM.PNNEP ---
Progress Note: A&P Assessment and Plan (1) End stage renal disease: Code(s): N18.6 - End stage renal disease Status: Chronic Assessment and Plan: Patient gets dialysis on Wednesdays and Fridays. She is on dialysis now. (2) Aortic stenosis: Qualifiers: Cardiac valve disease etiology: nonrheumatic Qualified Code(s): I35.0 - Nonrheumatic aortic (valve) stenosis Code(s): I35.0 - Nonrheumatic aortic (valve) stenosis Status: Acute Assessment and Plan: Patient has significant aortic stenosis. Antelmo done Transfer in process (3) Chronic anemia: Code(s): D64.9 - Anemia, unspecified Status: Chronic Assessment and Plan: Hemoglobin was 9.7 yesterday. Will give EPO 10,000 (4) Acute respiratory failure with hypoxia and hypercapnia: Code(s): J96.01 - Acute respiratory failure with hypoxia; J96.02 - Acute respiratory failure with hypercapnia Status: Acute Assessment and Plan: Mild respiratory acidosis. Getting supportive care (5) Hypertension: Qualifiers: Hypertension type: unspecified Qualified Code(s): I10 - Essential (primary) hypertension Code(s): I10 - Essential (primary) hypertension Status: Chronic Assessment and Plan: Her blood pressure is under good control. Her diastolic blood pressure is fairly low. (6) Diabetes: Qualifiers: Diabetes mellitus type: type 2 Diabetes mellitus research electrician insulin use: without research electrician use Diabetes mellitus complication status: with kidney complications Diabetes mellitus complication detail: with chronic kidney disease Chronic kidney disease stage: on chronic dialysis Qualified Code(s): E11.22 - Type 2 diabetes mellitus with diabetic chronic kidney disease; N18.6 - End stage renal disease; Z99.2 - Dependence on renal dialysis Code(s): E11.9 - Type 2 diabetes mellitus without complications Status: Chronic Assessment and Plan: On Accu-Cheks and sliding-scale insulin (7) Chronic anticoagulation: Code(s): Z79.01 - senior living (current) use of anticoagulants Status: Chronic Assessment and Plan: The patient is on Eliquis Subjective Date/time seen: 07/31/20 16:17 Interval history: Patient is feeling okay. She had ANTELMO today. She is being transferred to [place]. She is on dialysis now and tolerating it well. Her bed weight shows she is 6L over her dry weight. Will increase fluid off to3L as she is already custodial through her treatment. I do not want to drop the blood pressure too low with the aortic stenosis. The patient was seen at 4:00 p.m. Review of Systems Cardiovascular: Cardiovascular: Reports no additional cardiovascular complaints Respiratory: Respiratory: Reports no additional respiratory complaints Gastrointestinal: Gastrointestinal: Reports no additional gastrointestinal complaints Genitourinary: Genitourinary: Reports no additional female genitourinary complaints Exam Narrative: Exam Narrative: WDWN in NAD skin no rash head ncat lungs clear cor reg no rub abd BS+ nontender and soft ext no edema. Objective Data Vital Signs Vital Signs: Vital Signs - 24 hr 07/30/20 17:55 07/30/20 20:00 07/30/20 20:39 Temperature 36.4 C L Pulse Rate 77 78 70 Respiratory Rate 15 18 Blood Pressure 119/47 L Pulse Oximetry 93 99 07/30/20 21:44 07/30/20 21:45 07/30/20 23:34 Temperature 36.4 C L Pulse Rate 78 75 Respiratory Rate 18 13 Blood Pressure 116/53 L 119/47 L Pulse Oximetry 99 93 07/31/20 00:00 07/31/20 04:00 07/31/20 06:00 Temperature 36.4 C Pulse Rate 73 73 75 Respiratory Rate 16 Blood Pressure 123/54 L Pulse Oximetry 98 07/31/20 07:35 07/31/20 07:50 07/31/20 08:00 Temperature Pulse Rate 84 74 Respiratory Rate 16 15 Blood Pressure 113/47 L 115/48 L Pulse Oximetry 97 96 94 07/31/20 08:05 07/31/20 08:10 07/31/20 08:15 Temperatur
[2020-07-31] MEDS: EPOETIN ALFA-EPBX 10,000 UNITS/ML VIAL 10000 UNITS IV PUSH (16:57)
--- NOTE | 2020-07-31 17:52 | PC.NURSE ---
Report given to nurse at [facility], Dayami ODONNELL. Phone number [phone].
--- NOTE | 2020-07-31 18:20 | PC.NURSE ---
Patient return from dialysis.
[2020-07-31 18:32] LABS: Glucose Point of Care 108 (65-105)
--- NOTE | 2020-07-31 20:28 | PC.NURSE ---
[facility] NOTIFIED PT IN ROUTE
--- NOTE | 2020-08-26 16:06 | P.TS_ITS ---
Transfer Discharge Sum: Prov Provider Date of admission: 07/28/20 16:07 Primary care physician: CREATIVE SERVICES MANAGER PHYSICIAN Admitting clinician: Eduardo Jarrett MD Consults: 07/29/20 Consult to Physician Routine Comment: Spoke to Dr @ 10:03 (TH,US) Consulting Provider: Everett Lemon call center dispatcher/MD group to consult: Dr. Jean-Baptiste Reason for consultation: Severe Aortic Stenosis with Episode of Hypotension Has provider been notified: Yes Consult to Physician Routine Comment: Spoke to Dr @ 10:10 (,[place]) Consulting Provider: Paulo Soto call center dispatcher/ group to consult: Dr. Taylor Reason for consultation: ESRD on HD Has provider been notified: Yes Consult to Physician Routine Comment: Spoke to Dr @ 11:12 (,[place]) Consulting Provider: Radha Arellano call center dispatcher/ group to consult: Dr. Arellano Reason for consultation: Obesity-hypoventilation Has provider been notified: Yes DS: Admitting Diagnosis Admitting Diagnosis Admitting Diagnosis: Chief complaint: Orthostatic hypotension, acute respiratory failure DS: Discharge Diagnosis Discharge Diagnosis (1) Acute hypotension: Code(s): I95.9 - Hypotension, unspecified Status: Acute Assessment and Plan: * Likely due to fluid shifts related to HD * likely a contributing factor (2) Acute respiratory failure with hypoxia and hypercapnia: Code(s): J96.01 - Acute respiratory failure with hypoxia; J96.02 - Acute respiratory fail ure with hypercapnia Status: Acute Assessment and Plan: * Adverse drug event might have contributed (diphenhydramine, gabapentin, hydrocodone) * Repeat ABG shows hypercarbia (PCO2 70, pH 7.26) with bicarb 30.8 * Obesity-hypoventilation syndrome with BAN confirmed by [facility] * Patient was previously told she had BAN, but no BiPAP/CPAP was prescribed * D/w pt importance of wearing positive pressure ventilation while at rest or asleep * D/w Dr. Arellano plans for outpatient split-night sleep study to qualify her for CPAP (3) Aortic stenosis: Qualifiers: Cardiac valve disease etiology: nonrheumatic Qualified Code(s): I35.0 - Nonrheumatic aortic (valve) stenosis Code(s): I35.0 - Nonrheumatic aortic (valve) stenosis Status: Acute Assessment and Plan: * Severe by 05/2020 echo with EF 40-45% * Dr. 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) use of anticoagulants Status: Chronic Assessment and Plan: * Eliquis due to hx PE (5) Chronic anemia: Code(s): D64.9 - Anemia, unspecified Status: Chronic Assessment and Plan: * Stable (6) Diabetes: Qualifiers: Diabetes mellitus type: type 2 Diabetes mellitus intermediate teacher insulin use: without intermediate teacher use Diabetes mellitus complication status: with kidney complications Diabetes mellitus complication detail: with chronic kidney disease Chronic kidney disease stage: on chronic dialysis Qualified Code(s): E11.22 - Type 2 diabetes mellitus with diabetic chronic kidney disease; N18.6 - End stage renal disease; Z99.2 - Dependence on renal dialysis Code(s): E11.9 - Type 2 diabetes mellitus without complications Status: Chronic (7) Hypertension: Qualifiers: Hypertension type: unspecified Qualified Code(s): I10 - Essential (primary) hypertension Code(s): I10 - Essential (primary) hypertension Status: Acute Assessment and Plan:
--- NOTE | 2020-08-26 16:06 | PM.TDS ---
Transfer Discharge Sum: Prov Provider Date of admission: 07/28/20 16:07 Primary care physician: FORENSIC PHOTOGRAPHER PHYSICIAN Admitting clinician: Eduardo Jarrett MD Consults: 07/29/20 Consult to Physician Routine Comment: Spoke to Dr @ 10:03 (TH,US) Consulting Provider: Everett Lemon call center trainer/MD group to consult: Dr. Jean-Baptiste Reason for consultation: Severe Aortic Stenosis with Episode of Hypotension Has provider been notified: Yes Consult to Physician Routine Comment: Spoke to Dr @ 10:10 (,[place]) Consulting Provider: Paulo Soto call center trainer/ group to consult: Dr. Taylor Reason for consultation: ESRD on HD Has provider been notified: Yes Consult to Physician Routine Comment: Spoke to Dr @ 11:12 (,[place]) Consulting Provider: Radha Arellano call center trainer/ group to consult: Dr. Arellano Reason for consultation: Obesity-hypoventilation Has provider been notified: Yes DS: Admitting Diagnosis Admitting Diagnosis Admitting Diagnosis: Chief complaint: Orthostatic hypotension, acute respiratory failure DS: Discharge Diagnosis Discharge Diagnosis (1) Acute hypotension: Code(s): I95.9 - Hypotension, unspecified Status: Acute Assessment and Plan: Likely due to fluid shifts related to HD likely a contributing factor (2) Acute respiratory failure with hypoxia and hypercapnia: Code(s): J96.01 - Acute respiratory failure with hypoxia; J96.02 - Acute respiratory failure with hypercapnia Status: Acute Assessment and Plan: Adverse drug event might have contributed (diphenhydramine, gabapentin, hydrocodone) Repeat ABG shows hypercarbia (PCO2 70, pH 7.26) with bicarb 30.8 Obesity-hypoventilation syndrome with BAN confirmed by [facility] Patient was previously told she had BAN, but no BiPAP/CPAP was prescribed D/w pt importance of wearing positive pressure ventilation while at rest or asleep D/w Dr. Arellano plans for outpatient split-night sleep study to qualify her for CPAP (3) Aortic stenosis: Qualifiers: Cardiac valve disease etiology: nonrheumatic Qualified Code(s): I35.0 - Nonrheumatic aortic (valve) stenosis Code(s): I35.0 - Nonrheumatic aortic (valve) stenosis Status: Acute Assessment and Plan: Severe by 05/2020 echo with EF 40-45% Dr. Jean-Baptiste scheduled BLAKE for 07/31 (4) Chronic anticoagulation: Code(s): Z79.01 - long-term (current) use of anticoagulants Status: Chronic Assessment and Plan: Eliquis due to hx PE (5) Chronic anemia: Code(s): D64.9 - Anemia, unspecified Status: Chronic Assessment and Plan: Stable (6) Diabetes: Qualifiers: Diabetes mellitus type: type 2 Diabetes mellitus usp insulin use: without long term acute care registered nurse use Diabetes mellitus complication status: with kidney complications Diabetes mellitus complication detail: with chronic kidney disease Chronic kidney disease stage: on chronic dialysis Qualified Code(s): E11.22 - Type 2 diabetes mellitus with diabetic chronic kidney disease; N18.6 - End stage renal disease; Z99.2 - Dependence on renal dialysis Code(s): E11.9 - Type 2 diabetes mellitus without complications Status: Chronic (7) Hypertension: Qualifiers: Hypertension type: unspecified Qualified Code(s): I10 - Essential (primary) hypertension Code(s): I10 - Essential (primary) hypertension Status: Acute Assessment and Plan: Stable (8) End stage renal disease: Code(s): N18.6 - End stage renal disease Status: Chronic Assessment and Plan: HD per nephrology MWF schedule, but has been noncompliant Transfer Discharge Sum: Med Medications Active and Home Medications: Home Medications ergocalciferol (vitamin D2) 50,000 unit PO WEEKLY 01/02/20 [History Confirmed 07/28/20] gabapentin 200 mg PO BID 01/02/20 [History Confirmed 07/28/20] hydralazine 25 mg PO TID 01/02/20 [History
== END 2020-07-31 20:39 | disposition short-term general hospital (02) | DRG 306 ==
LOC: ANHED 16:07 → ANHIMU 22:04 → ANH2MED 07-30 10:05 → ANHIMU 08-03 16:14
PROVIDERS: Internal Medicine; Internal Medicine Critical Care Medicine; Internal Medicine Nephrology; Admitting Provider Internal Medicine; Emergency Provider Emergency Medicine; Visit Provider Internal Medicine Cardiovascular Disease
PROC: B24BZZ4 Ultrasonography of Heart with Aorta, Transesophageal (ICD-10-PCS; CPT 93312; principal; 2020-07-31 08:00)
DX: I35.0 Nonrheumatic aortic (valve) stenosis; J96.01 Acute respiratory failure with hypoxia; J96.02 Acute respiratory failure with hypercapnia; N18.6 End stage renal disease; I13.2 Hypertensive heart and chronic kidney disease with heart failure and with stage 5 chronic kidney disease, or end stage renal disease; Z68.42 Body mass index [BMI] 45.0-49.9, adult; E66.2 Morbid (severe) obesity with alveolar hypoventilation; Z20.828 Contact with and (suspected) exposure to other viral communicable diseases; I95.9 Hypotension, unspecified; E11.22 Type 2 diabetes mellitus with diabetic chronic kidney disease; I50.9 Heart failure, unspecified; E11.40 Type 2 diabetes mellitus with diabetic neuropathy, unspecified; E11.319 Type 2 diabetes mellitus with unspecified diabetic retinopathy without macular edema; Z99.2 Dependence on renal dialysis; Z91.15 Patient's noncompliance with renal dialysis; K76.0 Fatty (change of) liver, not elsewhere classified; F41.9 Anxiety disorder, unspecified; F32.9 Major depressive disorder, single episode, unspecified; D63.1 Anemia in chronic kidney disease; N25.0 Renal osteodystrophy; T45.0X5A Adverse effect of antiallergic and antiemetic drugs, initial encounter; T42.6X5A Adverse effect of other antiepileptic and sedative-hypnotic drugs, initial encounter; T40.2X5A Adverse effect of other opioids, initial encounter; I25.2 Old myocardial infarction; Z79.01 Long term (current) use of anticoagulants; Z79.4 Long term (current) use of insulin; Z86.711 Personal history of pulmonary embolism; Z87.891 Personal history of nicotine dependence; Z98.42 Cataract extraction status, left eye; Z98.41 Cataract extraction status, right eye; Z96.1 Presence of intraocular lens
CPT/HCPCS: 36415; 36600; 71045; 80053; 80069; 82375; 82805; 83050; 85025; 87340; 87635; 93005; 93312; 93320; 93325; 94002; 94003; 94660; 94762; 99291; A9270; C9803; G0257; J1644; J2250; J3010; J7030; J7040; Q5106; U0003

== ENCOUNTER 2020-11-06 01:44 | Inpatient (IN) | payer MEDICARE, MEDICAID, SELFPAY ==
[2020-11-06] VITALS (48 sets, daily range): BP systolic 86–139; BP diastolic 25–99; PULSE 60–143; RESP 13–24; TEMP 35.5–37.7; O2SAT 93–100; BMI 47.6
--- NOTE | ~2020-11-06 | XR_ITS ---
XR chest 1V portable DATE: 11/07/2020 14:59 INDICATION: Hypotension TECHNIQUE: Portable AP chest on 11/07/2020 at 1454 hours COMPARISON: 11/06/2020 portable AP chest FINDINGS: Left subclavian and axillary vascular stent. No pulmonary infiltrate or consolidation, pleural effusion or pulmonary vascular congestion or pneumo thorax is evident. No hilar or mediastinal enlargement. Heart size is likely within normal range cons idering magnification associated with AP projection. Degenerative spurring of the thoracic spine. Osteopenia. IMPRESSION: No active pulmonary disease Reviewed, dictated and finalized at location B. IMPRESSION: No active pulmonary disease
--- NOTE | ~2020-11-06 | CT_ITS ---
EXAMINATION: CT brain wo con DATE: 11/06/2020 10:40 INDICATION: Weakness. Anticoagulation with eloquence. TECHNIQUE: Computed tomography (CT) of the head was performed without intravenous contrast. Sagittal and coronal reconstructions were performed. The mA was adjusted according to patient size. Iterative reconstruction technique was employed. The dose-length product was 605.33 mGy-cm. COMPARISON: head CT dated 01/02/2020 FINDINGS: No acute intracranial hemorrhage, acute infarction or abnormal extra axial fluid collection. Ventricl es are normal and symmetric. No mass/mass effect. Changes of bilateral intraocular lens replacement. Mild mucosal thickening in the left maxillary sinus. Mastoid air cells are clear. Hyperostosis fronta lis. Intracranial calcified cerebral atherosclerosis is noted. IMPRESSION: 1. No acute intracranial process. Reviewed, dictated and finalized at location A.
--- NOTE | ~2020-11-06 | XR_ITS ---
XR chest 1V portable 11/06/2020 02:48 Indication: Cough, dizziness and emphysema Procedure: AP portable chest Comparison: Comparison to multiple prior studies sequentially, with oldest reviewed study dated 05/19. Findings: Heart size is normal for technique. Bilateral upper lobe airspace disease. No significant e ffusion or pneumothorax. Vascular stent in the left subclavian/axillary location. No acute osseous ab normality. Impression: 1: Subtle bilateral upper lobe airspace disease which may represent edema or pneumonia. Reviewed, dictated and finalized at location A. Impression: 1: Subtle bilateral upper lobe airspace disease which may represent edema or pn eumonia.
--- NOTE | 2020-11-06 01:56 | ED.WEAKNESS ---
HPI - Weakness General Chief complaint: Weakness Stated complaint: weak/ dizzy Source: RN notes reviewed History of Present Illness HPI Narrative: Patient presents emergency department from home via EMS for weakness. Patient states she been feeling weak and dizzy throughout the day today worse when she stands up states that this has been associated with a cough for the past several days has been nonproductive patient is a dialysis patient with dialysis Friday and states that she last had dialysis Friday. She denies any fevers or chills chest pain shortness of breath abdominal pain nausea or vomiting or any other symptoms states she has had diarrhea Related Data Home Medications Medication Instructions Recorded Confirmed ergocalciferol (vitamin D2) 50,000 unit PO WEEKLY 01/02/20 07/28/20 gabapentin 200 mg PO BID 01/02/20 07/28/20 hydralazine 25 mg PO TID 01/02/20 07/28/20 Eliquis 5 mg PO BID 06/11/20 07/28/20 citalopram 40 mg PO DAILY 06/11/20 07/28/20 sevelamer carbonate 800 mg PO TID 06/11/20 07/28/20 carvedilol 25 mg PO BID 06/12/20 07/28/20 hydrocodone-acetaminophen 5 - 325 tablet PO Q4H PRN 06/12/20 07/28/20 Novolin 70/30 U-100 Insulin 25 unit SUBCUT BID 07/28/20 07/28/20 insulin aspart U-100 [Novolog 1 sliding scale dose SUBCUT 07/28/20 07/28/20 U-100 Insulin aspart] USEASDIRECTD Allergies Allergy/AdvReac Type Severity Reaction Status Date / Time aspartame Allergy Unknown Unknown Verified 07/28/20 13:44 latex Allergy Unknown Unknown Verified 07/28/20 13:44 Review of Systems Review of Systems: Narrative: Gen.: Denies fevers or chills Eyes: Denies eye pain or visual change ENT: Denies congestion Respiratory: Denies shortness of breath or cough CV: Denies chest pain or palpitations GI: Denies abdominal pain nausea, emesis reports diarrhea reports chronic renal failure dialysis Musculoskeletal: Denies back pain or muscle pain Neuro: Reports dizziness and weakness Skin: Denies rash Except as documented, all other systems reviewed and negative [facility] Past Medical History Medical History (Updated 11/06/20 @ 05:08 by Tomas Bhagat DO) Acute on chronic blood loss anemia Anxiety Aortic stenosis Reported as mild on echocardiogram May 2018 with a flow rate of 1.4 cm2 with a loud holosystolic murmur CHF (congestive heart failure) With echocardiogram 2018 demonstrating mild concentric left ventricular hypertrophy EF of 55%, mild enlargement of left atrium, mild mitral valve regurgitation, mild aortic stenosis with valve area of 1.5 cm CVA (cerebral vascular accident) Depression Diabetes type 2, controlled Diabetic neuropathy Diabetic retinopathy End-stage renal disease on hemodialysis Since around 2016 Erosive gastritis Gastric ulcer Hepatic steatosis History of congestive heart failure Hypertension Melena Morbid obesity Myocardial infarction Pulmonary embolism March 2019 Surgical History Surgical History History of ankle surgery ORIF about 2014 History of colonoscopy with polypectomy 2016 Status post cataract extraction of both eyes with insertion of intraocular lens Surgically constructed arteriovenous fistula Left upper arm Family History Family History Mother CHF (congestive heart failure) Acute myocardial infarction Hypertension Father Alcoholism Brain tumor Social History Social History Smoking packs per day: 0.5 Smoking cigarettes per day: 10.0 Years smoked: 3 Smoking pack-years: 1.50 Smoking status: Former smoker Tobacco type: cigarettes Second hand tobacco smoke exposure: Yes Smoking end date: 07/18/90 Alcohol intake: never Drinks per week: 1 Substance use: never Substance use type: marijuana Other substance usage details: CBD gummies Additional living ar
--- NOTE | 2020-11-06 01:57 | ECG_ITS ---
Measurements Intervals [place] Rate: 83 P: 27 OR: 228 QRS: -32 QRSD: 109 T: 80 QT: 411 QTc: 483 Interpretive Statements SINUS RHYTHM WITH FIRST DEGREE AV BLOCK LEFT AXIS DEVIATION INTRAVENTRICULAR CONDUCTION DELAY POOR R WAVE PROGRESSION, ANTERIOR LEADS NONSPECIFIC ST & T-WAVE ABNORMALITY- HIGH LATERAL LEADS BASELINE WANDER- I, II, III, AVR, AVL, AVF, V1-V2 ABNORMAL ECG Electronically Signed On 11-06-2020 7:12:03 CDT by Everett Lemon D.O.
[2020-11-06 02:14] LABS: Alveolar/Arterial O2 Gradient 19.9 mmHg; Fractional Inspired Oxygen 21 %; HCO3 ABG 20.2 mEq/l (22.0-26.0); Modified Allen's Test Pass; Oxygen Content ABG 11.8 %vol (16.0-22.0); Oxygen Saturation ABG 95.8 % (95.0-100.0); PCO2 ABG 38.2 mmHg (35.0-45.0); PO2 ABG 84.1 mmHg (80.0-100.0); Site Drawn RIGHT RADIAL; Total Hemoglobin 8.9 g/dL (12.0-18.0); pH ABG 7.342 (7.350-7.450)
[2020-11-06 02:15] LABS: Device ROOM AIR
[2020-11-06 02:35] LABS: Basophils Percent Auto 0.3 % (0.2-1.2); Eosinophils Absolute Auto 0.6 K/mm3 (0-0.3); Eosinophils Percent Auto 4.7 % (0-4.4); Hematocrit 26.2 % (37.0-47.0); Hemoglobin 8.3 g/dL (12.0-15.0); Immature Granulocyte Absolute 0.05 K/mm3 (0.00-0.031); Immature Granulocyte Percent A 0.4 % (0-0.5); Lymphocytes Absolute Auto 1.16 K/mm3 (0.9-3.2); Lymphocytes Percent Auto 9.6 % (18.3-44.2); Mean Corpuscular HGB Conc 31.7 g/dl (32-36); Mean Corpuscular Hemoglobin 34.6 pg (26-34); Mean Corpuscular Volume 109.2 fl (80-100); Mean Platelet Volume 11.2 fl (7.4-10.4); Monocytes Absolute Auto 0.5 K/mm3 (0.1-0.6); Neutrophils Absolute Auto 9.8 K/mm3 (1.3-6.7); Platelet Count Result 169 k/mm3 (150-375); Red Cell Distribution Width 16.2 % (11.5-14.5); White Blood Count 12.1 K/mm3 (4.5-10.0)
[2020-11-06 02:50] LABS: Lactic Acid Reflex 0.9 mmol/L (0.7-2.1)
[2020-11-06 02:54] LABS: INR 1.6; Prothrombin Time 19.3 Seconds (11.1-14.7)
[2020-11-06 02:55] LABS: Partial Thromboplastin Time 43.3 SECONDS (22.3-36.8)
[2020-11-06 02:57] LABS: Alanine Aminotransferase 14 U/L (4-35); Albumin Level 3.1 g/dL (3.5-5.1); Alkaline Phosphatase 60 U/L (38-126); Anion Gap 12 mmol/L (8-16); Aspartate Amino Transferase 23 U/L (14-36); Bilirubin,Total 0.7 mg/dL (0.2-1.3); Blood Urea Nitrogen 106 mg/dL (7-17); Calcium 8.4 mg/dL (8.4-10.2); Carbon Dioxide 25 mmol/L (22-30); Chloride 102 mmol/L (98-107); Estimated CRCL calculation 10 ml/min; Estimated Glomerular Filt Rate 5; Glucose 110 mg/dL (65-105); Potassium 6.7 mmol/L (3.4-5.0); Sodium 139 mmol/L (137-145)
[2020-11-06] MEDS: DEXTROSE 50% 25 GM/50 ML SYRINGE IV PUSH (03:26)
[2020-11-06] MEDS: SODIUM CHLORIDE 0.9% IV 500 ML 999 ML IV CONT (03:26)
[2020-11-06] MEDS: SODIUM BICARBONATE 8.4% 50 MEQ/50 ML VIAL IV PUSH (03:27)
[2020-11-06] MEDS: INSULIN HUMAN REGULAR (*BKC) 100 UNITS/ML 10 UNITS IV PUSH (03:27)
[2020-11-06] MEDS: CALCIUM GLUCONATE 1,000 MG/10 ML VIAL 1000 MG IV PUSH (03:29)
[2020-11-06] MEDS: SODIUM POLYSTYRENE SULFONONATE 15 GM/60 ML BTL 30 GM PO (03:44)
[2020-11-06] MEDS: ACETAMINOPHEN 500 MG TABLET 1000 MG PO (04:14)
--- NOTE | 2020-11-06 04:57 | ADMGEN ---
This patient, Bhargavi Gonzalez, was admitted to IMU Room 207-01. Patient/family oriented to hospital policies and general routines including ID bracelet, bed and alarms, visiting hours, pain management, procedures, bathroom and other care routines, personal items, smoking policy, room service/diet, and visiting hours. Information on how to activate the Rapid Response Team has been discussed. Patient/Family are encouraged to report perceived risks to care and to ask questions if they do not understand what they are told or what they should do. Peyman HANDLEY report arrived [id number]
[2020-11-06 06:40] LABS: Anion Gap 13 mmol/L (8-16); Blood Urea Nitrogen 112 mg/dL (7-17); Calcium 8.3 mg/dL (8.4-10.2); Carbon Dioxide 21 mmol/L (22-30); Chloride 105 mmol/L (98-107); Estimated CRCL calculation 11 ml/min; Estimated Glomerular Filt Rate 6; Glucose 78 mg/dL (65-105); Potassium 5.9 mmol/L (3.4-5.0); Sodium 139 mmol/L (137-145)
[2020-11-06 08:08] LABS: Glucose Point of Care 75 (65-105)
--- NOTE | 2020-11-06 08:36 | PM.IMHP ---
H&P: HPI History of Present Illness Date/Time: 11/06/20 08:36 PATIENT IS PLACED UNDER OBSERVATION Chief Complaint: Weakness and dizziness Narrative: 60yo female with severe , ESRD and DM here for weakness and dizziness. Patient was hospitalized in July 2020 for orthostatic hypotension and acute respiratory failure. She was discovered to have severe aortic stenosis diagnosed by BLAKE (HUE 0.5-0.7). She was transferred to [facility] where she underwent a repeat BLAKE. It was not felt that she needed surgery at this time and she was discharged home. She has not followed up with them since discharge. She has end-stage renal disease since 2017. She has been compliant with her dialysis Friday. She has left upper extremity fistula in place for the past 3 years. A recent fistulogram last month was normal per patient. She had dialysis on November 03. She had been feeling well until the day prior to admission when she developed room spinning dizziness. She also has having weakness and difficulty standing. She has had a cough and cold symptoms with rhinorrhea for the past few weeks but these symptoms have resolved. She has been taking NyQuil and cough drops for this. No dysgeusia or anosmia. No fever or chills but has been feeling cold. She has been feeling short of breath a day prior to admission. Also with diarrhea for the past few days. No recent antibiotic exposure. No exposures to anybody with gastroenteritis symptoms. No melena or hematochezia. She denies any chest pain, palpitations, nausea or vomiting. She did vomit last week but this is more of a chronic situation related to acid reflux. She also has intermittent chronic food sticking sensation and she has had EGD within the past year showing only healing gastric ulcers and that 'the throat was fine'. No recent vision changes. She does have right here tinnitus. No dysuria or hematuria. She has makes small volumes urine. No headaches. She does have chronic peripheral neuropathy with burning in her feet. No weight changes. She has depression and anxiety. Mood has been stable. No complaints of suicidal or homicidal ideation. Tries to limit her fluid intake. She does eat prepackaged meals if her caregiver does not make her any food. She is on 70/30 25U BID and Regular for sliding scale but does not check her glucose. Not sure if she is having low sugars. Because of the weakness and dizziness, patient presents to the emergency room in the sailing master hours of admission. Her vital signs were stable except her temperature was 95.9?. On repeat it was normal. White count was slightly elevated at 12,000. Hemoglobin was 8.3 with macrocytosis. INR is 1.6 and she is on Eliquis. Potassium was 6.7. Her BUN was 106 with a creatinine 7.7. EKG showing NSR and nonspecific ST T wave changes. CXR showing bilateral upper lobe airspace disease edema versus pneumonia. In the ED, she received appropriate treatment for the hyperkalemia. Repeat potassium is 5.9. She was admitted for further care. Review of Systems Review of Systems: All systems reviewed & are unremarkable except as noted in HPI and below PMFSH Past Medical History Medical History (Updated 11/06/20 @ 09:09 by Emre Jarrett MD) Acute on chronic blood loss anemia Anxiety Aortic stenosis HUE 0.5-0.7 by BLAKE in Jul 2020 CAD (coronary artery disease) with hx of [place] CHF (congestive heart failure) EF 45-50% by BLAKE in Jul 2020 CVA (cerebral vascular accident) Depression Diabetes type 2, controlled Diabetic neuropathy Diabetic retinopathy End-stage renal disease on hemodialysis Since around 2016 Erosive gastritis Gastric ulcer Hepatic steatosis Hypertension Morbid obesity Pulmonary embolism March 2019 Surgical History Surgical History (Updated 11/06/20 @ 09:03 by Emre Jarrett MD) History of ankle surgery left ORIF about 2014 History of colonoscopy with polypectomy 2015 Statu
[2020-11-06 11:16] LABS: Folic Acid > 20.0 ng/mL (2.76->20)
[2020-11-06] MEDS: CITALOPRAM HYDROBROMIDE 20 MG TABLET 40 MG PO (11:37)
[2020-11-06] MEDS: SEVELAMER CARBONATE 800 MG TABLET PO ×2 (11:38→20:03)
[2020-11-06] MEDS: APIXABAN 5 MG TABLET PO ×2 (11:38→18:16)
[2020-11-06] MEDS: GABAPENTIN 100 MG CAPSULE 200 MG PO ×2 (11:38→18:16)
[2020-11-06 11:47] LABS: Glucose Point of Care 139 (65-105)
--- NOTE | 2020-11-06 12:36 | PCNSR ---
On 11/06/20, the student, Eve Perez, provided care and completed [facility] documentation on this patient. I have reviewed the student's documentation and agree with the findings.
--- NOTE | 2020-11-06 15:01 | PC.NURSE ---
Pt to dialysis via hospital bed.
--- NOTE | 2020-11-06 16:17 | PM.PNNEP ---
Progress Note: A&P Assessment and Plan (1) End stage renal disease: Code(s): N18.6 - End stage renal disease Status: Chronic Assessment and Plan: HD today and continue M/W/F dialysis schedule follow electrolytes, volume status, and clearance FULL CONSULT TO FOLLOW Subjective Date/time seen: 11/06/20 16:17 Tolerating dialysis treatment at the time of my visit (seen on HD at ~ 4:0PM); relative hypotension at this time may limit fluid removal with dialysis treatment today; no apparent distress at the time of my visit. Objective Data Vital Signs Vital Signs: Vital Signs Temp Pulse Resp BP Pulse Ox 11/06/20 16:00 90 92/35 L 11/06/20 15:45 87 94/38 L 11/06/20 15:30 85 112/49 L 11/06/20 15:18 85 136/50 L 11/06/20 15:05 35.8 C L 86 18 114/38 L 11/06/20 14:44 93 11/06/20 14:00 86 11/06/20 12:00 35.8 C L 87 24 H 107/33 L 99 11/06/20 10:00 85 11/06/20 08:17 35.6 C L 81 22 H 101/42 L 98 11/06/20 08:00 83 11/06/20 06:00 82 11/06/20 04:40 36.3 C L 84 22 H 113/32 L 99 11/06/20 04:15 85 22 H 11/06/20 04:07 86 14 11/06/20 03:33 83 13 97/53 L 11/06/20 03:32 83 13 11/06/20 03:23 82 13 11/06/20 02:45 143 H 20 97 11/06/20 02:42 124 H 13 97/54 L 97 11/06/20 02:41 83 97/54 L 11/06/20 02:40 133 H 14 97/52 L 98 11/06/20 02:39 82 87/40 L 11/06/20 02:34 84 13 11/06/20 02:01 83 15 113/51 L 98 11/06/20 02:00 84 13 100 11/06/20 01:53 36.4 C 11/06/20 01:51 84 14 114/65 97 11/06/20 01:50 84 13 95 11/06/20 01:45 35.5 C L 85 16 114/65 97 Intake/Output Intake/Output: Intake & Output 11/03/20 11/04/20 11/05/20 11/06/20 23:59 23:59 23:59 23:59 Intake Total 980 Balance 980 Meds/Results Medications: Active Medications Generic Name Dose Route Start Last Admin Trade Name Freq PRN Reason Stop Dose Admin Hydrocodone Bitart/Acetaminophen 1 tab 11/06/20 09:36 Hydrocodone/Acetaminophen (*Crx) 5-325 Mg Tablet PO Q4H PRN Pain, Severe Apixaban 5 mg 11/06/20 09:00 11/06/20 11:38 Apixaban 5 Mg Tablet PO 5 mg BID BRUNILDA Administration Calcium Carbonate 200 mg 11/06/20 09:34 Calcium Carbonate (Tums) 500 Mg (200 Mg Elemental) PO Q6H PRN Indigestion Citalopram Hydrobromide 40 mg 11/06/20 09:55 11/06/20 11:37 Citalopram Hydrobromide 20 Mg Tablet PO 40 mg DAILY BRUNILDA Administration Dextrose 12.5 gm 11/06/20 09:33 Dextrose 50% 25 Gm/50 Ml Syringe IV PUSH PRN PRN Hypoglycemia Protocol Epoetin Mg-epbx 10,000 units 11/06/20 18:00 Epoetin Mg-Epbx 10,000 Units/Ml Vial IV PUSH 11/06/20 18:01 ONCE ONE Ergocalciferol 50,000 unit 11/08/20 09:00 Ergocalciferol 50,000 Unit Capsule PO We@0900 BRUNILDA Gabapentin 200 mg 11/06/20 09:00 11/06/20 11:38 Gabapentin 100 Mg Capsule PO 200 mg BID BRUNILDA Administration Glucagon 1 mg 11/06/20 09:33 Glucagon For Inj 1 Mg Vial IM PRN PRN Hypoglycemia Protocol Glucose 15 gm 11/06/20 09:33 Glucose Oral Gel 15 Gm Of Glucse In 37.5 Gm Tube PO PRN PRN Hypoglycemia Protocol Dextrose 1,000 mls @ 100 mls/hr 11/06/20 09:33 Dextrose 5% 1,000 Ml IVPB PRN PRN Hypoglycemia Protocol Albumin Human 50 mls @ 999 mls/hr 11/06/20 11:53 Albutein IVPB 12/06/20 11:54 Q10M PRN HYPOTENSION Insulin Aspart 4 - 8 units 11/06/20 12:00 11/06/20 11:39 Insulin Aspart (*Bkc) 100 Units/Ml SUB-Q Not Given [facility]ID[facility] Protocol Insulin Human Isoph/Insulin Regular 20 units 11/06/20 16:30 Insulin Human Isophan/Regular 70/30 (*Bkc) 100 Units/Ml SUB-Q BIDAC BRUNILDA Sevelamer Carbonate 800 mg 11/06/20 12:00 11/06/20 11:38 Sevelamer Carbonate 800 Mg Tablet PO 800 mg TIDWM [facility] Administration Radiology Results: ITS Impressions Chest
[2020-11-06] MEDS: EPOETIN ALFA-EPBX 10,000 UNITS/ML VIAL 10000 UNITS IV PUSH (17:28)
[2020-11-06] MEDS: ALBUMIN HUMAN 25% 12.5 GM/50ML 50 ML IVPB ×2 (17:44→22:33)
[2020-11-06] MEDS: HYDROcodone/acetaminophen (*CRX) 5-325 MG TABLET 1 TAB PO (18:16)
[2020-11-06] MEDS: SODIUM CHLORIDE 0.9% IV 250 ML 100 ML IV CONT (20:06)
[2020-11-06 20:18] LABS: Glucose Point of Care 126 (65-105)
[2020-11-07] VITALS (13 sets, daily range): BP systolic 75–110; BP diastolic 38–62; PULSE 72–90; RESP 16–22; TEMP 36.1–36.5; O2SAT 92–99
[2020-11-07 05:28] LABS: Basophils Percent Auto 0.3 % (0.2-1.2); Eosinophils Absolute Auto 0.5 K/mm3 (0-0.3); Eosinophils Percent Auto 4.1 % (0-4.4); Hematocrit 22.7 % (37.0-47.0); Hemoglobin 7.2 g/dL (12.0-15.0); Immature Granulocyte Absolute 0.06 K/mm3 (0.00-0.031); Immature Granulocyte Percent A 0.5 % (0-0.5); Lymphocytes Absolute Auto 1.59 K/mm3 (0.9-3.2); Lymphocytes Percent Auto 14.5 % (18.3-44.2); Mean Corpuscular HGB Conc 31.7 g/dl (32-36); Mean Corpuscular Volume 110.2 fl (80-100); Mean Platelet Volume 11.5 fl (7.4-10.4); Monocytes Absolute Auto 0.8 K/mm3 (0.1-0.6); Monocytes Percent Auto 6.9 % (2.6-8.5); Neutrophils Absolute Auto 8.1 K/mm3 (1.3-6.7); Neutrophils Percent Auto 73.7 % (45.5-73.1); Platelet Count Result 173 k/mm3 (150-375); Red Blood Count 2.06 M/mm3 (4.2-5.4); White Blood Count 10.9 K/mm3 (4.5-10.0)
[2020-11-07 05:52] LABS: Albumin Level 2.9 g/dL (3.5-5.1); Anion Gap 7 mmol/L (8-16); Blood Urea Nitrogen 47 mg/dL (7-17); Carbon Dioxide 30 mmol/L (22-30); Chloride 99 mmol/L (98-107); Estimated CRCL calculation 18 ml/min; Estimated Glomerular Filt Rate 10; Glucose 76 mg/dL (65-105); Magnesium 1.9 mg/dL (1.6-2.3); Phosphorus 5.1 mg/dL (2.5-4.5); Potassium 4.7 mmol/L (3.4-5.0); Sodium 136 mmol/L (137-145)
[2020-11-07] MEDS: ACETAMINOPHEN 325 MG TABLET 650 MG PO ×2 (06:49→20:41)
[2020-11-07 08:46] LABS: Glucose Point of Care 125 (65-105)
[2020-11-07] MEDS: GABAPENTIN 100 MG CAPSULE 200 MG PO ×2 (09:49→17:29)
[2020-11-07] MEDS: APIXABAN 5 MG TABLET PO ×2 (09:49→17:29)
[2020-11-07] MEDS: SEVELAMER CARBONATE 800 MG TABLET PO ×2 (09:49→17:29)
[2020-11-07] MEDS: CITALOPRAM HYDROBROMIDE 20 MG TABLET 40 MG PO (09:49)
[2020-11-07] MEDS: ALBUMIN HUMAN 25% 12.5 GM/50ML 50 ML IVPB (11:05)
--- NOTE | 2020-11-07 12:22 | PM.CNNEP ---
Assessment and Plan Assessment and plan (1) End stage renal disease: Code(s): N18.6 - End stage renal disease Status: Chronic Assessment and Plan: HD yesterday and plan HD tomorrow and continue M/W/F schedule follow electrolytes, volume status, and clearance (2) Acute hyperkalemia: Code(s): E87.5 - Hyperkalemia Status: Acute Assessment and Plan: resolved with medical management and dialysis follow trend of K+ (3) Weakness: Code(s): R53.1 - Weakness Status: Acute Assessment and Plan: etiology? due to hyperkalemia, anemia, aortic stenosis, or something else follow hemodynamics and labs PT/OT (4) Dizziness: Code(s): R42 - Dizziness and giddiness Status: Resolved Assessment and Plan: check orthostatics follow BP trial of meclizine? (5) Hypertension: Qualifiers: Hypertension type: unspecified Qualified Code(s): I10 - Essential (primary) hypertension Code(s): I10 - Essential (primary) hypertension Status: Chronic Assessment and Plan: BP medications with parameters follow hemodynamics (6) Diabetes: Qualifiers: Chronic kidney disease stage: on chronic dialysis Diabetes mellitus complication detail: with chronic kidney disease Diabetes mellitus complication status: with kidney complications Diabetes mellitus exterminator helper termite insulin use: without exterminator helper termite use Diabetes mellitus type: type 2 Qualified Code(s): E11.22 - Type 2 diabetes mellitus with diabetic chronic kidney disease; N18.6 - End stage renal disease; Z99.2 - Dependence on renal dialysis Code(s): E11.9 - Type 2 diabetes mellitus without complications Status: Chronic Assessment and Plan: follow accuchecks glycemic control Will continue to follow. History of Present Illness Reason for Consult Consult date: 11/07/20 Reason for consult: end stage renal disease Chief Complaint Chief complaint: hyperkalemia, CRF History of Present Illness Narrative: The patient is a 60yo [place] female with an extensive past medical history as noted below who presented to [facility] ER with complaints of profound weakness and dizziness. The patient had been in a year her usual state of health until the day prior to admission when she developed the the sensation that the room was spinning /dizziness. associated symptoms included weakness and difficulty standing also. She reports some Upper URI symptoms but these have initially resolved prior to the a for mentioned symptoms of dizziness and weakness. She gives no symptoms of fever or chills but the has stated that she subjectively felt cold. She gives no other systemic symptoms with regard to chest pain palpitations nausea or vomiting but does admit to some mild shortness of breath. Because of the persistence of the dizziness and weakness as well as a fat that she felt it was getting worse, she presented to the ER for further evaluation Workup and evaluation emergency room demonstrated the patient to be hemodynamically stable although she did have some relative hypothermia. Repeat testing of her vial signs showed her temperature to be within normal limits. Routine blood test demonstrated labs consistent with her known history of end-stage renal disease although she had significant hyperkalemia with a potassium of 6.7 and higher than normal BUN in the 100 range. EKG did not show any specific ischemic changes and her chest x-ray showed bilateral upper lobe airspace disease edema versus pneumonia. She received medical management for the hyperkalemia in the emergency room but given the persistence of the symptoms that led to her presentation to the emergency room in conjunction with her complex medical history as noted above, she was admitted the hospital for further evaluation/therapy. Due to her hyperkalemia, she received dialysis yesterday on her normal Friday, Friday,
[2020-11-07 12:31] LABS: Glucose Point of Care 86 (65-105)
[2020-11-07] MEDS: MIDODRINE HCL 10 MG TABLET PO ×2 (15:25→20:34)
--- NOTE | 2020-11-07 15:27 | PM.IMPN ---
Progress Note: A&P Assessment and Plan (1) Acute hyperkalemia: Code(s): E87.5 - Hyperkalemia Status: Acute Assessment and Plan: Potassium 6.9 probably related to dietary choices. EKG reviewed personally. After treatment, repeat potassium at 5.9. HD today to further correct potassium. Dietary consult to help with appropriate dietary choices. (2) Dizziness: Code(s): R42 - Dizziness and giddiness Status: Acute Assessment and Plan: Patient with dizziness and weakness. Dizziness is described as room spinning although denies that symptom today. The hyperkalemia could be contributing to the weakness. She has had a recent cough but this has resolved. Chest X-ray findings noted. Chest x-ray was reviewed. Consider pneumonia. Weakness also may be related to her severe aortic stenosis. Would also consider episodes of hypoglycemia given her low A1c and that she does not check her sugars at home. Will repeat chest x-ray in the morning after dialysis. Will start PT and OT. Sliding scale insulin to further evaluate her glucose control. Consider meclizine if she continues to have room spinning dizziness. Will hold her antihypertensives since hypotension may also be contributing to her weakness. Dehydrated? Add back blood pressure medications as she tolerates. She is also on narcotics at home which could be contributing as well. Check orthostatics. Hx of CVA but not sen by CT brain in December 2019; on Eliquis so will check CT brain as well. CT brain showig no acute findings. (3) Anemia: Code(s): D64.9 - Anemia, unspecified Status: Acute Assessment and Plan: Hgb runs 7-9 range mostly here with macrocytosis. Iron studies okay except for low TIBC so suspect related to anemia chronic disease from her ESRD but no B12 or folate levels drawn here. Check B12/folate. Monitor HH. Okay to resume Eliquis (if brain CT okay) since this seems more longstanding and feel this is not causing her weakness (although could contribute to it). (4) Aortic stenosis: Qualifiers: Cardiac valve disease etiology: nonrheumatic Qualified Code(s): I35.0 - Nonrheumatic aortic (valve) stenosis Code(s): I35.0 - Nonrheumatic aortic (valve) stenosis Status: Acute Assessment and Plan: BLAKE here in July showing HUE 0.5-0.7cm2. She states that Geovanna felt that it was premature to have valve surgery now. Will request records to see hat was found and the followup plan. (5) End stage renal disease: Code(s): N18.6 - End stage renal disease Status: Chronic Assessment and Plan: ESRD since around 2017. She has a left upper extremity fistula that extends into the subclavian. Recent fistulogram performed last month was okay; it was done elsewhere. Resume HD starting today to keep her on her schedule. Will need to watch BP closely. Nephrology consult. (6) Diabetes: Qualifiers: Diabetes mellitus type: type 2 Diabetes mellitus long term care social worker insulin use: without long term care social worker use Diabetes mellitus complication status: with kidney complications Diabetes mellitus complication detail: with chronic kidney disease Chronic kidney disease stage: on chronic dialysis Qualified Code(s): E11.22 - Type 2 diabetes mellitus with diabetic chronic kidney disease; N18.6 - End stage renal disease; Z99.2 - Dependence on renal dialysis Code(s): E11.9 - Type 2 diabetes mellitus without complications Status: Chronic Assessment and Plan: The patient's blood glucose was normal on admission. Last A1c 5.5 in May. Takes 70/30 25U BID but does not check her glucose at home. Could be causing some of her weakness if she is having hypoglycemia. Will start [employer] covering with sliding scale. Hypoglycemia protocol will be available as needed. Resume 70/30 at lower dose (decrease by 20%). Repeat A1c (7) Hypertension: Qualifiers:
[2020-11-07 17:09] LABS: Glucose Point of Care 107 (65-105)
[2020-11-07 20:50] LABS: Glucose Point of Care 141 (65-105)
[2020-11-08] VITALS (34 sets, daily range): BP systolic 90–132; BP diastolic 25–90; PULSE 62–90; RESP 18–22; TEMP 36.2–37; O2SAT 91–100
[2020-11-08 05:14] LABS: Hematocrit 23.6 % (37.0-47.0); Hemoglobin 7.5 g/dL (12.0-15.0); Mean Corpuscular HGB Conc 31.8 g/dl (32-36); Mean Corpuscular Hemoglobin 34.7 pg (26-34); Mean Corpuscular Volume 109.3 fl (80-100); Mean Platelet Volume 11.3 fl (7.4-10.4); Platelet Count Result 191 k/mm3 (150-375); Red Blood Count 2.16 M/mm3 (4.2-5.4); Red Cell Distribution Width 17.5 % (11.5-14.5); White Blood Count 10.4 K/mm3 (4.5-10.0)
[2020-11-08] MEDS: ACETAMINOPHEN 325 MG TABLET 650 MG PO (05:19)
[2020-11-08] MEDS: MIDODRINE HCL 10 MG TABLET PO ×3 (05:19→21:34)
[2020-11-08 05:33] LABS: Anion Gap 9 mmol/L (8-16); Blood Urea Nitrogen 59 mg/dL (7-17); Calcium 8.1 mg/dL (8.4-10.2); Carbon Dioxide 29 mmol/L (22-30); Chloride 97 mmol/L (98-107); Estimated CRCL calculation 13 ml/min; Estimated Glomerular Filt Rate 7; Glucose 101 mg/dL (65-105); Potassium 4.6 mmol/L (3.4-5.0); Sodium 135 mmol/L (137-145)
[2020-11-08 08:03] LABS: Hepatitis B Surface Antigen Negative (Negative)
[2020-11-08 08:25] LABS: Glucose Point of Care 124 (65-105)
[2020-11-08] MEDS: APIXABAN 5 MG TABLET PO ×2 (10:10→21:34)
[2020-11-08] MEDS: GABAPENTIN 100 MG CAPSULE 200 MG PO ×2 (10:10→21:34)
[2020-11-08] MEDS: ERGOCALCIFEROL 50,000 UNIT CAPSULE 50000 UNITS PO (10:11)
[2020-11-08] MEDS: CITALOPRAM HYDROBROMIDE 20 MG TABLET 40 MG PO (10:11)
[2020-11-08] MEDS: SEVELAMER CARBONATE 800 MG TABLET PO ×2 (12:30→21:34)
[2020-11-08 12:34] LABS: Glucose Point of Care 104 (65-105)
[2020-11-08 13:05] LABS: Glucose Point of Care 107 (65-105)
[2020-11-08] MEDS: SODIUM CHLORIDE 0.9% IV 1,000 ML 100 ML IV CONT (15:00)
--- NOTE | 2020-11-08 16:39 | PM.IMPN ---
Progress Note: A&P Assessment and Plan (1) Acute hyperkalemia: Code(s): E87.5 - Hyperkalemia Status: Resolved (2) Dizziness: Code(s): R42 - Dizziness and giddiness Status: Resolved Assessment and Plan: Patient with dizziness and weakness. Bp is now stable on midodrine. (3) Anemia: Code(s): D64.9 - Anemia, unspecified Status: Acute Assessment and Plan: Hgb runs 7 (4) Aortic stenosis: Qualifiers: Cardiac valve disease etiology: nonrheumatic Qualified Code(s): I35.0 - Nonrheumatic aortic (valve) stenosis Code(s): I35.0 - Nonrheumatic aortic (valve) stenosis Status: Acute Assessment and Plan: BLAKE here in July showing HUE 0.5-0.7cm2. She states that [place] felt that it was premature to have valve surgery now. (5) End stage renal disease: Code(s): N18.6 - End stage renal disease Status: Chronic Assessment and Plan: ESRD since around 2016 Nephrology consult. (6) Diabetes: Qualifiers: Diabetes mellitus type: type 2 Diabetes mellitus mcfp insulin use: without mcfp use Diabetes mellitus complication status: with kidney complications Diabetes mellitus complication detail: with chronic kidney disease Chronic kidney disease stage: on chronic dialysis Qualified Code(s): E11.22 - Type 2 diabetes mellitus with diabetic chronic kidney disease; N18.6 - End stage renal disease; Z99.2 - Dependence on renal dialysis Code(s): E11.9 - Type 2 diabetes mellitus without complications Status: Chronic Assessment and Plan: The patient's blood glucose was normal on admission. Last A1c 5.5 in May. (7) Hypertension: Qualifiers: Hypertension type: unspecified Qualified Code(s): I10 - Essential (primary) hypertension Code(s): I10 - Essential (primary) hypertension Status: Acute Assessment and Plan: Patient's blood pressure was stable on admission (8) DVT prophylaxis: Code(s): Z29.9 - Encounter for prophylactic measures, unspecified Status: Acute Assessment and Plan: Rasheeda Floyd Subjective Date/time seen: 11/08/20 16:39 Interval history: 60yo female with severe , ESRD and DM here for weakness and dizziness. Bp better today. Pt is tired Review of Systems Review of Systems: All systems reviewed & are unremarkable except as noted in HPI and below Exam Const: General: other Orientation/consciousness: No oriented to person Resp: Effort & Inspection: no respiratory distress Auscultation: no rhonchi Cardio: Rate: regular rate Rhythm: regular rhythm GI: Inspection: normal to inspection Auscultation: normal bowel sounds Neuro: General: oriented to person Objective Data Vital Signs Vital Signs: Vital Signs - 24 hr 11/07/20 17:59 11/07/20 20:00 11/07/20 22:00 Temperature 36.1 C L Pulse Rate 86 83 82 Respiratory Rate 18 Blood Pressure 101/45 L Pulse Oximetry 98 11/07/20 23:16 11/08/20 00:00 11/08/20 02:00 Temperature 36.3 C L Pulse Rate 83 82 67 Respiratory Rate 18 Blood Pressure 110/54 L Pulse Oximetry 96 11/08/20 04:00 11/08/20 06:00 11/08/20 08:00 Temperature 36.5 C 36.4 C L Pulse Rate 71 84 90 Respiratory Rate 20 20 Blood Pressure 113/90 107/62 Pulse Oximetry 96 98 11/08/20 08:02 11/08/20 08:39 11/08/20 10:00 Temperature Pulse Rate 78 76 75 Respiratory Rate Blood Pressure 105/42 L 107/62 Pulse Oximetry 98 11/08/20 12:00 11/08/20 14:00 11/08/20 16:00 Temperature 36.4 C L 36.2 C L Pulse Rate 78 75 74 Respiratory Rate 20 20 Blood Pressure 110/25 L 95/49 L Pulse Oximetry 100 96 Intake/Output Intake/Output: Intake & Output 11/05/20 11/06/20 11/07/20 11/08/20 23:59 23:59 23:59 23:59 Intake Total 1180 1870 1550 Output Total 1500 50 0 Balance -320 1820 1550 Meds/Results Medications: Active Medications G
--- NOTE | 2020-11-08 16:44 | PM.PNNEP ---
Progress Note: A&P Assessment and Plan (1) End stage renal disease: Code(s): N18.6 - End stage renal disease Status: Chronic Assessment and Plan: HD today and continue M/W/ schedule follow electrolytes, volume status, and clearance (2) Acute hyperkalemia: Code(s): E87.5 - Hyperkalemia Status: Acute Assessment and Plan: resolved with medical management and dialysis follow trend of K+ (3) Weakness: Code(s): R53.1 - Weakness Status: Acute Assessment and Plan: etiology? due to hyperkalemia, anemia, aortic stenosis, or something else follow hemodynamics and labs PT/OT (4) Dizziness: Code(s): R42 - Dizziness and giddiness Status: Resolved Assessment and Plan: seems to be doing better continue supportive therapy (5) Hypertension: Qualifiers: Hypertension type: unspecified Qualified Code(s): I10 - Essential (primary) hypertension Code(s): I10 - Essential (primary) hypertension Status: Chronic Assessment and Plan: BP medications with parameters follow hemodynamics (6) Diabetes: Qualifiers: Diabetes mellitus type: type 2 Diabetes mellitus resourcing advisor insulin use: without detention use Diabetes mellitus complication status: with kidney complications Diabetes mellitus complication detail: with chronic kidney disease Chronic kidney disease stage: on chronic dialysis Qualified Code(s): E11.22 - Type 2 diabetes mellitus with diabetic chronic kidney disease; N18.6 - End stage renal disease; Z99.2 - Dependence on renal dialysis Code(s): E11.9 - Type 2 diabetes mellitus without complications Status: Chronic Assessment and Plan: follow accuchecks on SSI Will continue to follow. Subjective Date/time seen: 11/08/20 16:44 Tolerating dialysis at the time of my visit (seen on HD at 4:35PM); doing reasonable well at this time; no other acute issues or problems voiced; overall, feels significantly better since admission; no apparent distress noted; no events/issues overnight or earlier this AM. Exam Narrative: Exam Narrative: GENERAL APPEARANCE: well developed well nourished male in no acute distress HEENT: normocephalic, atraumatic, normal conjunctiva and sclera, nares patient NECK: no lymphadenopathy, thyromegaly, or JVD MOUTH: normal lips, teeth, and gums CARDIOVASCULAR: RRR, normal S1 and S2, no rub detected RESPIRATORY: clear to auscultation bilaterally ABDOMEN: soft, nontender, nondistended, positive bowel sounds present EXTREMITIES: no evidence of cyanosis, clubbing, or edema NEUROLOGICAL: alert and oriented x 3; CN II - XII intact bilaterally; no focal deficits noted Objective Data Vital Signs Vital Signs: Vital Signs Temp Pulse Resp BP Pulse Ox 11/08/20 16:00 36.2 C L 74 20 95/49 L 96 11/08/20 14:00 75 11/08/20 12:00 36.4 C L 78 20 110/25 L 100 11/08/20 10:00 75 11/08/20 08:39 76 107/62 98 11/08/20 08:02 78 105/42 L 11/08/20 08:00 36.4 C L 90 20 107/62 98 11/08/20 06:00 84 11/08/20 04:00 36.5 C 71 20 113/90 96 11/08/20 02:00 67 11/08/20 00:00 82 11/07/20 23:16 36.3 C L 83 18 110/54 L 96 11/07/20 22:00 82 11/07/20 20:00 36.1 C L 83 18 101/45 L 98 11/07/20 17:59 86 Intake/Output Intake/Output: Intake & Output 11/05/20 11/06/20 11/07/20 11/08/20 23:59 23:59 23:59 23:59 Intake Total 1180 1870 1550 Output Total 1500 50 0 Balance -320 1820 1550 Meds/Results Medications: Active Medications Generic Name Dose Route Start Last Admin Trade Name Freq PRN Reason Stop Dose Admin Acetaminophen 650 mg 11/07/20 06:28 11/08/20 05:19 Acetaminophen 325 Mg Tablet PO 650 mg Q4H PRN Administration Mild Pain (1-3) or Fever Hydrocodone Bitart/Acetaminophen 1 tab 11/06/20 09:36 11/06/20 18:16 Hydrocodone/Acetaminophen (*Crx) 5-325 Mg Tabl
[2020-11-08 18:49] LABS: Hepatitis B Surface Anti Res Negative
[2020-11-08] MEDS: EPOETIN ALFA-EPBX 10,000 UNITS/ML VIAL 10000 UNITS IV PUSH (18:52)
[2020-11-08 20:52] LABS: Glucose Point of Care 103 (65-105)
--- NOTE | 2020-11-08 20:56 | PC.NURSE ---
Brought pt back from dialysis at 2047.
[2020-11-08] MEDS: HYDROcodone/acetaminophen (*CRX) 5-325 MG TABLET 1 TAB PO (22:03)
[2020-11-09] VITALS (7 sets, daily range): BP systolic 107–118; BP diastolic 38–44; PULSE 78–81; RESP 12–20; TEMP 36.4–36.6; O2SAT 94–100
[2020-11-09] MEDS: ACETAMINOPHEN 325 MG TABLET 650 MG PO (04:26)
[2020-11-09 05:34] LABS: Anion Gap 6 mmol/L (8-16); Blood Urea Nitrogen 30 mg/dL (7-17); Calcium 8.6 mg/dL (8.4-10.2); Carbon Dioxide 33 mmol/L (22-30); Chloride 97 mmol/L (98-107); Estimated CRCL calculation 19 ml/min; Estimated Glomerular Filt Rate 11; Glucose 89 mg/dL (65-105); Potassium 4.2 mmol/L (3.4-5.0); Sodium 136 mmol/L (137-145)
[2020-11-09] MEDS: MIDODRINE HCL 10 MG TABLET PO ×2 (05:41→13:06)
[2020-11-09] MEDS: SEVELAMER CARBONATE 800 MG TABLET PO ×2 (07:49→13:06)
[2020-11-09] MEDS: GABAPENTIN 100 MG CAPSULE 200 MG PO (07:49)
[2020-11-09] MEDS: APIXABAN 5 MG TABLET PO (07:49)
[2020-11-09] MEDS: CITALOPRAM HYDROBROMIDE 20 MG TABLET 40 MG PO (07:49)
[2020-11-09 08:34] LABS: Glucose Point of Care 91 (65-105)
[2020-11-09 12:34] LABS: Glucose Point of Care 102 (65-105)
--- NOTE | 2020-11-09 13:14 | PCOTNOTE ---
Attempted to see pt for PM OT session. Pt refused all ADLs, bue strengthening, and therapeutic activities due to pt stating that she is d/c today. Will attempt tomorrow per POC duration/frequency tomorrow if needed.
--- NOTE | 2020-11-09 14:46 | PM.DS ---
DS: Admitting Diagnosis Admitting Diagnosis Admitting Diagnosis: Weakness and dizziness DS: Discharge Diagnosis Discharge Diagnosis (1) Acute hyperkalemia: Code(s): E87.5 - Hyperkalemia Status: Resolved (2) Dizziness: Code(s): R42 - Dizziness and giddiness Status: Resolved Assessment and Plan: Patient with dizziness and weakness. Bp is now stable on midodrine. (3) Anemia: Code(s): D64.9 - Anemia, unspecified Status: Acute Assessment and Plan: Hgb runs 7 (4) Aortic stenosis: Qualifiers: Cardiac valve disease etiology: nonrheumatic Qualified Code(s): I35.0 - Nonrheumatic aortic (valve) stenosis Code(s): I35.0 - Nonrheumatic aortic (valve) stenosis Status: Acute Assessment and Plan: BLAKE here in July showing HUE 0.5-0.7cm2. She states that [place] felt that it was premature to have valve surgery now. (5) End stage renal disease: Code(s): N18.6 - End stage renal disease Status: Chronic Assessment and Plan: ESRD since around 2017 Nephrology consult. (6) Diabetes: Qualifiers: Diabetes mellitus type: type 2 Diabetes mellitus shelter insulin use: without shelter use Diabetes mellitus complication status: with kidney complications Diabetes mellitus complication detail: with chronic kidney disease Chronic kidney disease stage: on chronic dialysis Qualified Code(s): E11.22 - Type 2 diabetes mellitus with diabetic chronic kidney disease; N18.6 - End stage renal disease; Z99.2 - Dependence on renal dialysis Code(s): E11.9 - Type 2 diabetes mellitus without complications Status: Chronic Assessment and Plan: The patient's blood glucose was normal on admission. Last A1c 5.5 in May. (7) Hypertension: Qualifiers: Hypertension type: unspecified Qualified Code(s): I10 - Essential (primary) hypertension Code(s): I10 - Essential (primary) hypertension Status: Acute Assessment and Plan: Patient's blood pressure was stable on admission (8) DVT prophylaxis: Code(s): Z29.9 - Encounter for prophylactic measures, unspecified Status: Acute Assessment and Plan: Bharathie Mariel DS: Summary Hospital Course Hospital Course: 60yo female with severe , ESRD and DM here for weakness and dizziness. Bp better today. Pt is tired looking morbidly obese and chronically ill appearing. Time Spent with Patient Time attestation: Total time spent providing and/or coordinating discharge services:40 minutes on day of discharge Exam Const: General: other Nutritional Appearance: overweight Orientation/consciousness: oriented to person Resp: Effort & Inspection: no respiratory distress Auscultation: no rhonchi Cardio: Rate: regular rate Rhythm: regular rhythm GI: Inspection: normal to inspection Auscultation: normal bowel sounds Neuro: General: oriented to person DS: Data Data Completed and Pending Labs on day of discharge: Labs from last 24 hours 11/09/20 11/09/20 11/09/20 11:49 07:44 04:33 Sodium 136 L Potassium 4.2 Chloride 97 L Carbon Dioxide 33 H Anion Gap 6 L BUN 30 H D Creatinine 4.20 H Estim Creat Clear Calc 19 Estimated GFR 11 L Glucose 89 POC Capillary Glucose 102 91 Calcium 8.6 Hep Bs Antibody Hep B Core Total Ab 11/08/20 11/08/20 11/08/20 20:49 17:19 17:19 Sodium Potassium Chloride Carbon Dioxide Anion Gap BUN Creatinine Estim Creat Clear Calc Estimated GFR Glucose POC Capillary Glucose 103 Calcium Hep Bs Antibody Negative Hep B Core Total Ab Pending Preliminary micro results at discharge 11/06/20 02:27 Blood Culture - Preliminary Blood 11/06/20 02:27 Blood Culture - Preliminary Blood Discharge Plan Discharge Attending physician on discharge: Melissa Garcia
[2020-11-13 08:34] LABS: Hepatitis B Core Ab Total Nonreactive (Nonreactive)
== END 2020-11-09 14:00 | disposition home or self-care (01) | DRG 640 ==
LOC: ANHED 02:36 → ANHIMU 03:43
PROVIDERS: Internal Medicine; Internal Medicine Nephrology; Admitting Provider Internal Medicine; Emergency Provider Emergency Medicine; Visit Provider Family Medicine
DX: E87.5 Hyperkalemia (principal); N18.6 End stage renal disease; Z68.42 Body mass index [BMI] 45.0-49.9, adult; I13.2 Hypertensive heart and chronic kidney disease with heart failure and with stage 5 chronic kidney disease, or end stage renal disease; R42 Dizziness and giddiness; E66.01 Morbid (severe) obesity due to excess calories; D63.1 Anemia in chronic kidney disease; I35.0 Nonrheumatic aortic (valve) stenosis; E11.22 Type 2 diabetes mellitus with diabetic chronic kidney disease; E11.42 Type 2 diabetes mellitus with diabetic polyneuropathy; E11.319 Type 2 diabetes mellitus with unspecified diabetic retinopathy without macular edema; Z99.2 Dependence on renal dialysis; Z87.891 Personal history of nicotine dependence; I25.2 Old myocardial infarction; Z86.711 Personal history of pulmonary embolism; Z98.42 Cataract extraction status, left eye; Z98.41 Cataract extraction status, right eye
CPT/HCPCS: 36415; 36600; 70450; 71045; 80048; 80053; 80069; 82607; 82746; 82805; 82948; 83036; 83605; 83735; 85025; 85027; 85610; 85730; 86704; 86706; 87040; 87340; 93005; 96361; 96365; 96375; 96376; 97110; 97161; 97165; 97530; 97535; 99285; A9270; G0257; G0378; J0610; J1815; J7030; J7040; J7050; P9047; Q5106

== ENCOUNTER 2020-11-18 02:43 | Inpatient (IN) | payer MEDICARE, MEDICAID, SELFPAY ==
[2020-11-18] VITALS (48 sets, daily range): BP systolic 64–129; BP diastolic 35–76; PULSE 70–98; RESP 12–22; TEMP 35.8–36.7; O2SAT 90–100; BMI 48.4
--- NOTE | 2020-11-18 | ECHO_ITS ---
Patient Info Name: Bhargavi Gonzalez Age: 60 years : 1960 Gender: Female Ht: 65 in Wt: 316 lbs BSA: 2.65 m2 HR: 81 bpm BP: 80 / 68 mmHg Technical Quality: Fair Exam Date: 11/18/2020 9:41 AM Exam Location: [facility] Patient Status: Inpatient Admit Date: 11/18/2020 Staff Ordering Physician: John Choi MD Barbering Teacher: Adwoa Bernardo RDCS Attending Provider: Hugo Belcher MD Exam Type: CA echo dop color flow w con Study Info Complete two-dimensional, color flow and Doppler transthoracic echocardiogram is performed with contrast to opacify the left ventricle and to improve the deliniation of the left ventricle endocardial borders. Contrast/Agitated Saline Amount: 4.00 ml Summary 1. Left ventricular chamber dimension is moderately enlarged. 2. Definity contrast administered improved wall motion interpretation. 3. Left ventricular systolic function is severely reduced, estimated at 25-30%. 4. There is moderately increased left ventricular wall thickness. 5. The left ventricular diastolic function is grade II diastolic dysfunction. 6. E/e' 29 is elevated. 7. Right ventricular systolic function is reduced based on abnormal TAPSE of 1.1 cm. 8. Left atrial chamber dimension is moderately enlarged. 9. There is moderate aortic valve stenosis based on a peak velocity of 329.73 cm/s, mean gradient of 14 mmHg, and aortic valve area of 1.60 cm2. 10. There is severe aortic valve sclerosis. 11. The mitral valve has not well visualized, moderately calcified leaflets and moderately calcified annulus. 12. There is moderate mitral valve regurgitation. 13. There is moderate tricuspid valve regurgitation. 14. Mild pulmonary hypertension, estimated pulmonary arterial systolic pressure is 48 mmHg. Left Ventricle E/e' 29 is elevated. Definity contrast administered improved wall motion interpretation. Left ventricular chamber dimension is moderately enlarged. Left ventricular systolic function is severely reduced, estimated at 25-30%. There is moderately increased left ventricular wall thickness. The left ventricular diastolic function is grade II diastolic dysfunction. Right Ventricle Right ventricular systolic function is reduced based on abnormal TAPSE of 1.1 cm. Right ventricular chamber dimension is not well visualized. Left Atria Left atrial chamber dimension is moderately enlarged. Right Atria Right atrial chamber dimension is normal. Aortic Valve The aortic valve is not well visualized. Cannot determine number of aortic valve leaflets. There is moderate aortic valve stenosis based on a peak velocity of 329.73 cm/s, mean gradient of 14 mmHg, and aortic valve area of 1.60 cm2. There is severe aortic valve sclerosis. There is no aortic valve regurgitation. Pulmonic Valve The pulmonic valve is not well visualized. Mitral Valve The mitral valve has not well visualized, moderately calcified leaflets and moderately calcified annulus. There is no mitral valve stenosis. There is moderate mitral valve regurgitation. Tricuspid Valve The tricuspid valve leaflets are not well visualized. There is moderate tricuspid valve regurgitation. Mild pulmonary hypertension, estimated pulmonary arterial systolic pressure is 48 mmHg. Pericardium/Pleural There is no pericardial effusion. Inferior Vena Cava Normal inferior vena cava with >50% collapse upon inspiration consistent with normal right atrial pressure, 5 mmHg. Aorta T
--- NOTE | ~2020-11-18 | XR_ITS ---
EXAMINATION: XR chest 1V portable DATE: 11/20/2020 05:45 INDICATION: Shortness of breath. TECHNIQUE: A single frontal view of the chest was obtained. COMPARISON: Chest single view 11/18/2020, chest CT 03/24/2019 FINDINGS: There are mild airspace opacities in perihilar regions. No pleural effusion or pneumothorax . Cardiomegaly is noted. A right internal jugular central venous catheter is seen with tip at the sup erior cavoatrial junction. Vascular stents overlie left shoulder. IMPRESSION: 1. Worsened mild airspace opacities in the perihilar regions, consistent with pulmonary edema versus pneumonia. 2. Cardiomegaly. Reviewed, dictated and finalized at location A. IMPRESSION: 1. Worsened mild airspace opacities in the perihilar regions, consistent with p ulmonary edema versus pneumonia. 2. Cardiomegaly.
--- NOTE | ~2020-11-18 | US_ITS ---
US venous doppler [facility] DATE: 11/18/2020 13:55 INDICATION: Swelling of lower extremities TECHNIQUE: Real-time and color flow imaging and Doppler analysis of the veins of the lower extremitie s COMPARISON: None FINDINGS: The greater saphenous veins are patent. There is spontaneous and phasic flow and normal aug mentation and color flow signal and normal compression of the deep veins of both lower extremities. IMPRESSION: No evidence of deep venous thrombosis of the lower extremities Reviewed, dictated and finalized at Location [facility]. Reviewed, dictated and finalized at location A.
--- NOTE | ~2020-11-18 | XR_ITS ---
XR chest port-a-cath/central DATE: 11/18/2020 07:39 INDICATION: Central line placement TECHNIQUE: Portable AP chest on 11/18/2020 0742 hours COMPARISON: 11/07/2020 portable AP chest at 1454 hours FINDINGS: Interval placement of right internal jugular central venous catheter, the tip situated near the superior cavoatrial junction. No pneumothorax. Cardiac megaly. Aortic arch calcification. No pulmonary infiltrate or consolidation, pleural effusion or pulmonary vascular congestion or pneumothorax. Endovascular stent of the left subclavian and axillary artery. Diffuse osteopenia. Degenerative spurring of the thoracic spine. IMPRESSION: Interval placement of right internal jugular central venous catheter, tip overlying super ior cavoatrial junction; no pneumothorax Reviewed, dictated and finalized at [facility]. Reviewed, dictated and finalized at location A. IMPRESSION: Interval placement of right internal jugular central venous cathete r, tip overlying superior cavoatrial junction; no pneumothorax
--- NOTE | ~2020-11-18 | CT_ITS ---
EXAMINATION: CT brain wo con DATE: 11/18/2020 05:31 INDICATION: Dizziness TECHNIQUE: Computed tomography (CT) of the head was performed without intravenous contrast. The mA wa s adjusted according to patient size. Iterative reconstruction technique was employed. Exam dose: 68 1.00 mGy-cm total exam DLP. COMPARISON: None FINDINGS: Prominent bilateral vertebral artery and carotid siphon internal carotid artery calcificati ons. No intracranial mass lesion or hemorrhage or cerebrovascular accident. No midline shift or mass effec t effect. No subdural or epidural hematoma. The orbits are unremarkable. No fracture or bone destruction of the cranial vault. Small mucus retention cyst of the left maxillary sinus. The paranasal sinuses and mastoid air cells a re otherwise unremarkable. IMPRESSION: Cerebral atherosclerosis; no acute intracranial finding Reviewed, dictated and finalized at [facility]. Reviewed, dictated and finalized at location A.
--- NOTE | 2020-11-18 03:01 | ECG_ITS ---
Measurements Intervals [place] Rate: 77 P: 6 MN: 199 QRS: -22 QRSD: 101 T: 144 QT: 416 QTc: 472 Interpretive Statements SINUS RHYTHM ST-T WAVE ABNORMALITY IN HIGH LATERAL LEADS- CONSIDER ISCHEMIA BASELINE ARTIFACT- I, II, AVR ABNORMAL ECG Electronically Signed On 11-18-2020 7:24:58 CDT by Everett Lemon D.O.
--- NOTE | 2020-11-18 03:13 | ED.DIZZY ---
HPI - Dizziness General Chief Complaint: Dizziness Stated Complaint: Dizzy Time Seen by Provider: 11/18/20 02:46 History of Present Illness HPI Narrative: 60 yo female w/ h/o ESRD on dialysis, DM presents to the ED for dizziness and weakness. She reports that she has been havig issues with light headedness for some time. She was recently started on midodrine for this problem, which she reports taking as prescribed. This evening she was too dizzy and weak to stand up. EMS found her to be significantly hypotensive. No fever, chills, nausea, vomiting, CP, SOB. Last dialysis yesterday. Related Data Home Medications Medication Instructions Recorded Confirmed ergocalciferol (vitamin D2) 50,000 unit PO WEEKLY 01/02/20 11/06/20 gabapentin 200 mg PO BID 01/02/20 11/06/20 hydralazine 25 mg PO TID 01/02/20 11/06/20 Eliquis 5 mg PO BID 06/11/20 11/06/20 citalopram 40 mg PO DAILY 06/11/20 11/06/20 sevelamer carbonate 800 mg PO TID 06/11/20 11/06/20 carvedilol 25 mg PO BID 06/12/20 11/06/20 Novolin 70/30 U-100 Insulin 25 unit SUBCUT BID 07/28/20 11/06/20 insulin aspart U-100 [Novolog 1 sliding scale dose SUBCUT 07/28/20 11/06/20 U-100 Insulin aspart] USEASDIRECTD Allergies Allergy/AdvReac Type Severity Reaction Status Date / Time aspartame Allergy Unknown Unknown Verified 11/18/20 05:20 latex Allergy Unknown Unknown Verified 11/18/20 05:20 Review of Systems Review of Systems: All systems reviewed & are unremarkable except as noted in HPI and below Constitutional: Constitutional: Denies chills, Denies fever(s) and Reports weakness Eyes: Eyes: Reports no additional eye complaints ENT: Denies sore throat Cardiovascular: Cardiovascular: Denies chest pain Respiratory: Respiratory: Denies dyspnea Gastrointestinal: Gastrointestinal: Denies abdominal pain and Denies nausea Genitourinary: Genitourinary: Reports no additional female genitourinary complaints Neurologic: Reports dizziness, Denies syncope, Denies headache(s) and Reports weakness PMF Past Medical History Medical History Acute on chronic blood loss anemia Anxiety Aortic stenosis HUE 0.5-0.7 by BLAKE in Jul 2020 CAD (coronary artery disease) with hx of [place] CHF (congestive heart failure) EF 45-50% by BLAKE in Jul 2020 CVA (cerebral vascular accident) Depression Diabetes type 2, controlled Diabetic neuropathy Diabetic retinopathy End-stage renal disease on hemodialysis Since around 2016 Erosive gastritis Gastric ulcer Hepatic steatosis Hypertension Morbid obesity Pulmonary embolism March 2019 Surgical History Surgical History History of ankle surgery left ORIF about 2014 History of colonoscopy with polypectomy 2016 Status post cataract extraction of both eyes with insertion of intraocular lens Surgically constructed arteriovenous fistula Left upper arm fistula with graft that extends into the left subclavian Family History Family History Mother CHF (congestive heart failure) Acute myocardial infarction Hypertension Father Alcoholism Brain tumor Social History Social History Social History: She lives alone. She has a cat. She has a caregiver 5 days a week for 2-1/2 hours per day. She quit tobacco 20 years ago after smoking half a pack a day for 3 years. Rare alcohol use. She uses marijuana every 3 months or so. She is not . No children. Her friend, Mariel Velasquez would be the individual would make medical decisions for her if she is not able. She is a full code. Smoking packs per day: 0.5 Smoking cigarettes per day: 10.0 Years smoked: 3 Smoking pack-years: 1.50 Smoking status: Former smoker Tobacco type: cigarettes Second hand tobacco smoke exposure: Yes Smoking end date:
[2020-11-18] MEDS: SODIUM CHLORIDE 0.9% IV 1,000 ML 999 ML IV CONT ×2 (03:21→05:11)
[2020-11-18 03:41] LABS: Basophils Percent Auto 0.4 % (0.2-1.2); Eosinophils Absolute Auto 0.4 K/mm3 (0-0.3); Eosinophils Percent Auto 4.7 % (0-4.4); Hemoglobin 8.4 g/dL (12.0-15.0); Immature Granulocyte Absolute 0.05 K/mm3 (0.00-0.031); Immature Granulocyte Percent A 0.6 % (0-0.5); Lymphocytes Absolute Auto 0.93 K/mm3 (0.9-3.2); Lymphocytes Percent Auto 11.4 % (18.3-44.2); Mean Corpuscular Volume 116.7 fl (80-100); Mean Platelet Volume 11.3 fl (7.4-10.4); Monocytes Absolute Auto 0.6 K/mm3 (0.1-0.6); Monocytes Percent Auto 7.6 % (2.6-8.5); Neutrophils Absolute Auto 6.1 K/mm3 (1.3-6.7); Neutrophils Percent Auto 75.3 % (45.5-73.1); Nucleated Red Blood Cells Perc 0.5 % (0.0-0.2); Platelet Count Result 188 k/mm3 (150-375); Red Cell Distribution Width 19.9 % (11.5-14.5); White Blood Count 8.2 K/mm3 (4.5-10.0)
[2020-11-18 03:53] LABS: Lactic Acid Reflex 1.5 mmol/L (0.7-2.1)
[2020-11-18 03:55] LABS: Alanine Aminotransferase 98 U/L (4-35); Albumin Level 3.4 g/dL (3.5-5.1); Alkaline Phosphatase 76 U/L (38-126); Anion Gap 13 mmol/L (8-16); Aspartate Amino Transferase 58 U/L (14-36); Bilirubin,Total 1.1 mg/dL (0.2-1.3); Blood Urea Nitrogen 35 mg/dL (7-17); Calcium 8.4 mg/dL (8.4-10.2); Carbon Dioxide 24 mmol/L (22-30); Chloride 99 mmol/L (98-107); Estimated CRCL calculation 12 ml/min; Estimated Glomerular Filt Rate 6; Glucose 79 mg/dL (65-105); Potassium 4.4 mmol/L (3.4-5.0); Sodium 136 mmol/L (137-145)
[2020-11-18 03:57] LABS: Alveolar/Arterial O2 Gradient 45.8 mmHg; Base Excess ABG -4.7 mEq/l (+/-2.0); Fractional Inspired Oxygen 24 %; HCO3 ABG 21.4 mEq/l (22.0-26.0); Modified Allen's Test Pass; Oxygen Content ABG 11.3 %vol (16.0-22.0); Oxygen Saturation ABG 93.1 % (95.0-100.0); Oxyhemoglobin 89.8 % THb (90.0-100.0); PCO2 ABG 44.4 mmHg (35.0-45.0); PO2 ABG 72.5 mmHg (80.0-100.0); PO2 FiO2 Ratio Arterial Blood 3.02 %; Site Drawn RIGHT RADIAL; Total Hemoglobin 8.9 g/dL (12.0-18.0); pH ABG 7.301 (7.350-7.450)
[2020-11-18 03:58] LABS: Device ROOM AIR
[2020-11-18 03:59] LABS: Ethanol < 10 mg/dL (<10)
[2020-11-18 04:13] LABS: Troponin I 0.431 ng/mL (0.000-0.034)
--- NOTE | 2020-11-18 04:57 | PC.NURSE ---
Attempted to straight cath patient for urine specimen. No urine output was obtained. Patient states she rarely makes any urine. ERP notified.
--- NOTE | 2020-11-18 05:16 | PC.NURSE ---
Patient in CT at this time.
[2020-11-18 05:23] LABS: INR 2.1; Prothrombin Time 24.4 Seconds (11.1-14.7)
[2020-11-18 05:24] LABS: Partial Thromboplastin Time 55.2 SECONDS (22.3-36.8)
--- NOTE | 2020-11-18 05:25 | PC.NURSE ---
VORB per ERP give patient her home midodrine.
--- NOTE | 2020-11-18 06:23 | PC.NURSE ---
assumed care for pt at this time. Report from Cat RN
[2020-11-18] MEDS: NOREPINEPHRINE 8 MG/D5W 250 ML 8 MG/250 ML BAG 9.38 MG IV CONT ×2 (07:21→22:17)
--- NOTE | 2020-11-18 07:54 | PC.NURSE ---
UA cancelled due to patient reporting that she does not produce urine.
--- NOTE | 2020-11-18 09:18 | ADMGEN ---
This patient, Bhargavi Gonzalez, was admitted to Intensive Care Unit-8. Patient/family oriented to hospital policies and general routines including ID bracelet, bed and alarms, visiting hours, pain management, procedures, bathroom and other care routines, personal items, smoking policy, room service/diet, and visiting hours. Information on how to activate the Rapid Response Team has been discussed. Patient/Family are encouraged to report perceived risks to care and to ask questions if they do not understand what they are told or what they should do.
--- NOTE | 2020-11-18 09:19 | WPDCNINT ---
Assessment and Plan Assessment and plan (1) Shock: Code(s): R57.9 - Shock, unspecified Status: Acute Assessment and Plan: Hypovolemic versus septic. Less likely septic as there is no clear source of infection based on signs and symptoms She has received 1.5 L of fluid. I will give an additional 500 cc with 250 cc bolus each time and continue to keep a close eye on her fluid status. Chest x-ray in the a.m.. Wean Levophed if tolerated. I will stop all the blood pressure medications. Continue midodrine and temporarily increase the dose to 15 mg 3 times a day so that she can be weaned off from pressors. I will send blood culture. Will hold off antibiotics at this time. Check procalcitonin level. Initiate abx and keep a low threshold if further clinical data suggest any signs of infection. (2) Aortic stenosis: Qualifiers: Cardiac valve disease etiology: nonrheumatic Qualified Code(s): I35.0 - Nonrheumatic aortic (valve) stenosis Code(s): I35.0 - Nonrheumatic aortic (valve) stenosis Status: Acute Assessment and Plan: Repeat echocardiogram. Reportedly she has been told at [facility] that it is early for her to replace aortic wall. She is preload dependent and seems to be volume down on clinical assessment. (3) End stage renal disease: Code(s): N18.6 - End stage renal disease Status: Chronic Assessment and Plan: Nephrology will be consulted for continuation of dialysis. Will ask them to keep her euvolemic and be conservative on taking of fluid during next sessions of dialysis. (4) Anemia: Code(s): D64.9 - Anemia, unspecified Status: Acute Assessment and Plan: She does have history of GI bleed in the past and has chronic anemia but today it is at baseline with no significant change. (5) Hypertension: Qualifiers: Hypertension type: unspecified Qualified Code(s): I10 - Essential (primary) hypertension Code(s): I10 - Essential (primary) hypertension Status: Acute Assessment and Plan: Stop all the antihypertensive medications including hydralazine, lisinopril amlodipine and Lasix. She was orthostatic hypotensive during her recent admission in October and was started on midodrine but her antihypertensive medication were continued at the time of discharge. Continue to monitor hemodynamics closely. (6) Diabetes: Qualifiers: Chronic kidney disease stage: on chronic dialysis Diabetes mellitus complication detail: with chronic kidney disease Diabetes mellitus complication status: with kidney complications Diabetes mellitus director long term care insulin use: without group home use Diabetes mellitus type: type 2 Qualified Code(s): E11.22 - Type 2 diabetes mellitus with diabetic chronic kidney disease; N18.6 - End stage renal disease; Z99.2 - Dependence on renal dialysis Code(s): E11.9 - Type 2 diabetes mellitus without complications Status: Chronic Assessment and Plan: Insulin sliding scale (7) Morbid obesity: Code(s): E66.01 - Morbid (severe) obesity due to excess calories Status: Acute Assessment and Plan: Continue to monitor Additional Plan DVT prophylaxis with Eliquis at her home dose GI prophylaxis with pantoprazole Full code Critical care time spent 36 minutes Due to a high probability of clinically significant, life threatening deterioration, the patient required my highest level of preparedness to intervene emergently and I personally spent this critical care time directly and personally managing the patient. This critical care time included obtaining a history; examining the patient; pulse oximetry; ordering and review of studies; arranging urgent treatment with development of a management plan; evaluation of patient's response to treatment; frequent reassessment; and discussions with other providers. It was exclusive of separately b
[2020-11-18] MEDS: SODIUM CHLORIDE 0.9% IV 250 ML IV CONT (10:02)
--- NOTE | 2020-11-18 10:53 | PM.CNNEP ---
Assessment and Plan Assessment and plan (1) End stage renal disease: Code(s): N18.6 - End stage renal disease Status: Chronic Assessment and Plan: plan next HD on Friday and maintain // schedule for now no critical electrolytes, stable acid-base status, and no signs of fluid overload (2) Shock: Code(s): R57.9 - Shock, unspecified Status: Acute Assessment and Plan: due to volume depletion versus too much anti-HTN meds versus not enough midodrine versus something else sepsis seems less likely but checking blood cultures (but holding antibiotics) possible autonomic dysfunction secondary to her diabetes(?) holding BP meds and tirating midodrine wean pressors as tolerated (3) Aortic stenosis: Qualifiers: Cardiac valve disease etiology: nonrheumatic Qualified Code(s): I35.0 - Nonrheumatic aortic (valve) stenosis Code(s): I35.0 - Nonrheumatic aortic (valve) stenosis Status: Acute Assessment and Plan: as noted by history playing a role with #2(?) (4) Anemia: Code(s): D64.9 - Anemia, unspecified Status: Chronic Assessment and Plan: due to ESRD Epogen with HD follow trend of H/H (5) Weakness: Code(s): R53.1 - Weakness Status: Acute Assessment and Plan: presumably related to #2 anemia may be contributing as well optimize BP as tolerated PT/OT when more stable (6) Diabetes: Qualifiers: Diabetes mellitus type: type 2 Diabetes mellitus jail insulin use: without jail use Diabetes mellitus complication status: with kidney complications Diabetes mellitus complication detail: with chronic kidney disease Chronic kidney disease stage: on chronic dialysis Qualified Code(s): E11.22 - Type 2 diabetes mellitus with diabetic chronic kidney disease; N18.6 - End stage renal disease; Z99.2 - Dependence on renal dialysis Code(s): E11.9 - Type 2 diabetes mellitus without complications Status: Chronic Assessment and Plan: follow acchecks glycemic control Will continue to follow. History of Present Illness Reason for Consult Consult date: 11/18/20 Reason for consult: end stage renal disease Chief Complaint Chief complaint: hypotension,generalized wekaness History of Present Illness Narrative: The patient is a 60yo female with an extensive past medical history as noted below who presented to [facility] ER with complaints of profound weakness and dizziness. The patient was just recently hospitalized here [facility] for similar symptoms and at that time she was started on midodrine therapy with improvement. However, it appears that on discharge, along with midodrine, she was also continued on her antihypertensive medications. In any case, she had a regularly scheduled dialysis treatment yesterday and apparently did okay but then by the time she got home, she felt more lightheaded. She apparently had a fall at home but did not injure her head. She called EMS to the persistence of the symptoms and it was verified that her blood pressure was quite low. She was subsequent transferred to the ER for further evaluation. Workup and evaluation emergency room demonstrated labs consistent with her known history of end-stage renal disease and she was quite hypotensive. She received about a L and a half of IV fluids with some improvement in her blood pressures to around the 90 systolic range when on presentation I believe she was in the 70 systolic range. Initially, the plan was admission to you for further evaluation but the patient's blood pressure dropped once again necessitating placement of a central line and [place] it is due shown of vasopressor therapy to maintain her mean arterial pressure. A CT scan of her head was done which did not demonstrate any acute intracranial process and she was subsequently admitted to the ICU for closer monitoring. Renal
[2020-11-18] MEDS: MIDODRINE HCL 10 MG TABLET PO ×2 (13:25→22:12)
[2020-11-18] MEDS: MIDODRINE HCL 2.5 MG TABLET 5 MG PO ×2 (13:25→22:12)
--- NOTE | 2020-11-18 14:52 | PM.IMHP ---
H&P: HPI History of Present Illness Date/Time: 11/18/20 14:52 Chief Complaint: Dizzy and weak Narrative: 60yo female with severe , ESRD and DM here for dizziness and feeling weak. Patient was hospitalized in July 2020 for orthostatic hypotension and acute respiratory failure. She was discovered to have severe aortic stenosis diagnosed by BLAKE (HUE 0.5-0.7). She was transferred to [facility] where she underwent a repeat BLAKE. It was not felt that she needed surgery at this time and she was discharged home. She has end-stage renal disease since 2016. She has been compliant with her dialysis Friday. She has left upper extremity fistula in place for the past 3 years. A recent fistulogram in September was normal per patient. She was hospitalized here on 11/06 for weakness and dizziness and found to have hyperkalemia. Midodrine added for HoTN. She was discharged home on 11/09/20. Since being at home, she missed HD on 11/10 but did keep her appointment with HD the following Friday/Friday/Friday prior to admission. She states her BP has been low at HD but they have been able to take off fluid. She states there has been no change in her medciation past week. She does not make urine. No fevers or chills. No chest pain or palpitations. No shortness of breath but does have dyspnea on exertion. She has been weak all over and shaking when she tries to stand. No nausea or vomiting. She does have chronic diarrhea with 1 loose stool per day. She eat 6 small meals a day and states ?I eat anything out what?. Patient states that she has been falling multiple times since discharge. This occurs when she stands. She does not have symptoms when she is at rest. She has called the ambulance twice to have them help her up. She has scraped her left ankle for a fall yesterday but denies any loss of consciousness or head trauma. She also fell at [facility] yesterday but later states that she became weak and a lowered her to the floor. Patient has been compliant with her medications. Patient became more dizzy and had trouble even standing. She called EMS on the nurse's assistant hours and was found to have hypotension. She was brought to the emergency room this morning for evaluation. In the ED Blood pressure was 79/44. Hemoglobin was 8.4 which is within her baseline. ABG showed 7.30/44/72 on RA. BUN 35 and creatinine 7.1. Troponin was elevated at 0.43. Chest x-ray was clear. Central line was placed. CT of the brain showing no acute findings. Was treated with IV fluids. She was started on pressors. She was admitted to the ICU for further care. Review of Systems Review of Systems: All systems reviewed & are unremarkable except as noted in HPI and below PMFSH Past Medical History Medical History Acute on chronic blood loss anemia Anxiety Aortic stenosis HUE 0.5-0.7 by BLAKE in Jul 2020 CAD (coronary artery disease) with hx of [place] CHF (congestive heart failure) EF 45-50% by BLAKE in Jul 2020 CVA (cerebral vascular accident) Depression Diabetes type 2, controlled Diabetic neuropathy Diabetic retinopathy End-stage renal disease on hemodialysis Since around 2016 Erosive gastritis Gastric ulcer Hepatic steatosis Hypertension Morbid obesity Pulmonary embolism March 2019 Surgical History Surgical History History of ankle surgery left ORIF about 2014 History of colonoscopy with polypectomy 2016 Status post cataract extraction of both eyes with insertion of intraocular lens Surgically constructed arteriovenous fistula Left upper arm fistula with graft that extends into the left subclavian Family History Family History Mother CHF (congestive heart failure) Acute myocardial infarction Hypertension Father Alcoholism Brain tumor Social His
[2020-11-18] MEDS: ACETAMINOPHEN 325 MG TABLET 650 MG PO (15:24)
[2020-11-18] MEDS: NEOMYCIN/POLYMYXIN/BACITRACIN OINTMENT PACKET 1 PACKET (16:53)
[2020-11-18] MEDS: NOREPINEPHRINE 8 MG/D5W 250 ML 8 MG/250 ML BAG 13.13 MG IV CONT (20:02)
--- NOTE | 2020-11-18 20:13 | PM.CNCAR ---
Assessment and Plan Assessment and plan (1) Acute hypotension: Code(s): I95.9 - Hypotension, unspecified Status: Acute Assessment and Plan: Could be due to volume depletion from HD, due to taking BP medications, or sepsis, and perhaps in setting of severe aortic stenosis which then puts her at risk for low cardiac output. (2) Aortic stenosis: Qualifiers: Cardiac valve disease etiology: nonrheumatic Qualified Code(s): I35.0 - Nonrheumatic aortic (valve) stenosis Code(s): I35.0 - Nonrheumatic aortic (valve) stenosis Status: Acute Assessment and Plan: Obtain medical records from [facility] in [place] hospitalization about their thoughts on aortic stenosis. On transthoracic echo the valve is not well seen, but it is severely calcified. By continuity equation,gradients and dimensionless index does not point to severe , however, BLAKE planimetry does show severe with valve area of 0.5-0.7 cm2 in July 2020. Perhaps aortic stenosis by catheter gradients on left heart cath will be deciding factor if aortic stenosis is indeed severe or not. (3) Acute systolic heart failure: Code(s): I50.21 - Acute systolic (congestive) heart failure Status: Acute Assessment and Plan: Discussed need for left heart cath to assess coronaries and to assess aortic stenosis by catheter gradients. [place] refer [place] [facility] [place]. Holding off on beta alecia/lamonte inh due to hypotension. (4) Elevated troponin: Code(s): R77.8 - Other specified abnormalities of plasma proteins Status: Acute Assessment and Plan: Troponin 0.431 which is moderately elevated. This could be due to hypotension with CKD. No clinical symptoms to suggest ACS. Trend troponins. History of Present Illness History of Present Illness Consult date/time: 11/18/20 20:13 Reason for consult: Aortic stenosis and heart failure. 60 yr old woman presented to hospital with weakness and dizziness. She has a history of aortic stenosis, ESRD on HD since 2017, DM, CVA, Pulmonary embolism in 2019, hypertension. I've seen her for the first time in Jul 2020 when she presented with similar symptoms after hemodialysis. It was found at that time on BLAKE that she had severe aortic stenosis and she was transferred to [facility] for valve replacement. She was told her aortic stenosis is not severe or severe enough to have valve replacement. Unfortunately she did not follow up with me after her hospitalization at [facility] so I did not get records to review. She came through ER this time with dizziness, weakness and passing out, falling and huring her ankle. In ED her BP was found to very low at 79/44 mmHg. Patient was here on 11/06/20 for hypotension also and was started on Midodrine, and she was also on BP medications. Currently BP 114/69 mmHg on Levophed drip at 7 mcg/kg/min. At this moment she denies any dizziness, weakness. States she can walk only minimal distance from one room to the next and limited by fatigue and [place]. Has mild edema of legs. Denies chest pain, sob, orthopnea, PND, palpitations. Troponin 0.431. Cr 7.1/GFR 12. EKG: Sinus rhythm, ST-T wave abnormality in high lateral leads- consider ischemia. Echo in May 2020: EF 40-45%, grade II diastolic dysfunction, aortic valve is not well seen, mod-severe (HUE 1.0-1.3 cm2, dimensionless index of 0.5), severe MAC. 07/31/20 BLAKE: EF 45-50%, planimetry HUE 0.5-0.7 cm2, severe calcification of aortic valve and possible bicuspid valve. Echo 11/18/20 EF 25-30%, mod LVE, mod LVH, grade II diastolic dysfunctio n(E/e' 29), RV dysfunction with TAPSE 1.1 cm, mod LAE, AV not well seen, mod (HUE 1.6 cm2 by valve area) and dimensionless index is 0.42 which is not severe , mod MAC with mod MV calcifications, mod MR/TR, RVSP 48 mmHg. Reason For Visit: hypotension,generalized wekaness Review of Systems Constitutional: Constitutional: Reports as per HPI, Denies chills, Reports fatigue and Denies fever(s)
[2020-11-18] MEDS: APIXABAN 5 MG TABLET PO (22:11)
[2020-11-18 22:20] LABS: Glucose Point of Care 173 (65-105)
[2020-11-19] VITALS (26 sets, daily range): BP systolic 79–116; BP diastolic 43–95; PULSE 69–82; RESP 12–21; TEMP 35.7–36.5; O2SAT 92–98; BMI 10.0
[2020-11-19] MEDS: MIDODRINE HCL 2.5 MG TABLET 5 MG PO ×3 (05:47→20:29)
[2020-11-19] MEDS: MIDODRINE HCL 10 MG TABLET PO ×3 (05:48→20:28)
[2020-11-19] MEDS: ONDANSETRON INJ 4 MG/2 ML VIAL IV PUSH (06:29)
[2020-11-19 06:36] LABS: Hematocrit 27.1 % (37.0-47.0); Hemoglobin 8.5 g/dL (12.0-15.0); Mean Corpuscular HGB Conc 31.4 g/dl (32-36); Mean Corpuscular Hemoglobin 35.1 pg (26-34); Mean Platelet Volume 11.3 fl (7.4-10.4); Platelet Count Result 216 k/mm3 (150-375); Red Blood Count 2.42 M/mm3 (4.2-5.4); White Blood Count 9.6 K/mm3 (4.5-10.0)
[2020-11-19 06:47] LABS: Lactic Acid Reflex 0.7 mmol/L (0.7-2.1)
[2020-11-19 06:48] LABS: Anion Gap 12 mmol/L (8-16); Blood Urea Nitrogen 44 mg/dL (7-17); Calcium 7.7 mg/dL (8.4-10.2); Carbon Dioxide 21 mmol/L (22-30); Chloride 101 mmol/L (98-107); Estimated CRCL calculation 11 ml/min; Estimated Glomerular Filt Rate 5; Glucose 104 mg/dL (65-105); Magnesium 2.1 mg/dL (1.6-2.3); Phosphorus 8.6 mg/dL (2.5-4.5); Potassium 4.6 mmol/L (3.4-5.0); Sodium 134 mmol/L (137-145)
[2020-11-19 06:57] LABS: NT Pro B Type Natriuretic Pept > 35000 PG/ML (5-100)
[2020-11-19 07:34] LABS: Glucose Point of Care 98 (65-105)
--- NOTE | 2020-11-19 08:19 | PM.PNCARD ---
Progress Note: A&P Assessment and Plan (1) Acute hypotension: Code(s): I95.9 - Hypotension, unspecified Status: Acute Assessment and Plan: Improved and off Levophed drip now with BP 96/68 mmHg. Could be due to volume depletion from HD, due to taking BP medications, or sepsis, and perhaps worse in setting of severe aortic stenosis due to low cardiac output. (2) Aortic stenosis: Qualifiers: Cardiac valve disease etiology: nonrheumatic Qualified Code(s): I35.0 - Nonrheumatic aortic (valve) stenosis Code(s): I35.0 - Nonrheumatic aortic (valve) stenosis Status: Acute Assessment and Plan: Obtain medical records from [facility] in [place] hospitalization about their thoughts on aortic stenosis. On transthoracic echo the valve is not well seen, but it is severely calcified. By continuity equation,gradients and dimensionless index does not point to severe , however, BLAKE planimetry does show severe with valve area of 0.5-0.7 cm2 in July 2020. I just reviewed her BLAKE from July and it is severe with probably bicuspid aortic valve or due to calcifications. Perhaps aortic stenosis by catheter gradients on left heart cath will be deciding factor if aortic stenosis is indeed severe or not. (3) Acute systolic heart failure: Code(s): I50.21 - Acute systolic (congestive) heart failure Status: Acute Assessment and Plan: This could be due to severe . Discussed need for left heart cath to assess coronaries and to assess aortic stenosis by catheter gradients. Will refer [place] [facility] [place] for procedure. Holding off on beta alecia/lamonte inh due to hypotension. Eliquis on hold since 11/18/20 evening dose. Keep NPO after midnight in case she goes for cardiac cath. (4) Elevated troponin: Code(s): R77.8 - Other specified abnormalities of plasma proteins Status: Acute Assessment and Plan: Troponin 0.431 which is moderately elevated. This could be due to hypotension with CKD. No clinical symptoms to suggest ACS. Trend troponins. Subjective Date/time seen: 11/19/20 08:19 Denies dizziness, chest pain or sob. Exam Const: General: cooperative, healthy appearing and comfortable Nutritional Appearance: obese Resp: Auscultation: clear to auscultation bilaterally, no crackles, no rales, no rhonchi and no wheezes Cardio: Jugular venous distension: no JVD Rate: regular rate Rhythm: regular rhythm Heart sounds: Murmur heart sound present (III/ systolic murmur RICS) Peripheral pulses: dorsalis pedis present GI: GI Palp: No abdominal tenderness and Yes Soft to palpation Neuro: General: oriented to person, oriented to place and oriented to time Extrem: Right lower extremity: edema Left lower extremity: edema Other: Mild edema of legs Objective Data Vital Signs Vital Signs: Vital Signs - 24 hr 11/18/20 09:00 11/18/20 09:02 11/18/20 09:03 Temperature Pulse Rate 81 80 81 Respiratory Rate 12 Blood Pressure 80/68 L 126/52 L Pulse Oximetry 98 11/18/20 09:11 11/18/20 09:40 11/18/20 09:42 Temperature Pulse Rate 80 Respiratory Rate 17 Blood Pressure 80/68 L Pulse Oximetry 99 96 96 11/18/20 09:45 11/18/20 10:00 11/18/20 10:01 Temperature Pulse Rate 97 81 81 Respiratory Rate 16 Blood Pressure 84/42 L 79/37 L 79/37 L Pulse Oximetry 99 11/18/20 10:30 11/18/20 11:00 11/18/20 11:31 Temperature Pulse Rate 96 89 90 Respiratory Rate 22 H Blood Pressure 64/50 L 67/46 L 85/63 L Pulse Oximetry 11/18/20 12:00 11/18/20 12:01 11/18/20 12:30 Temperature Pulse Rate 94 94 Respiratory Rate 20 Blood Pressure 98/67 L 103/65 Pulse Oximetry 93 11/18/20 12:38 11/18/20 13:27 11/18/20 14:00 Temperature 97.4 F L Pulse Rate 92 Respiratory Rate Blood Pressure 112/51 L 116/76 Pulse Oximetry 11/18/20 14:01 11/18/20 14:20 11/18/20 15:27 Temperature Pulse Rate 92 92 91 Respiratory Rate 14 Blo
[2020-11-19] MEDS: CITALOPRAM HYDROBROMIDE 20 MG TABLET 40 MG PO (08:23)
[2020-11-19] MEDS: GABAPENTIN 100 MG CAPSULE 200 MG PO ×2 (08:23→16:07)
[2020-11-19] MEDS: SEVELAMER CARBONATE 800 MG TABLET PO ×3 (08:23→16:06)
[2020-11-19] MEDS: VITAMIN B CMPLX/VIT C/FOLIC AC 1 CAPSULE 1 CAP PO (08:23)
[2020-11-19] MEDS: CALCIUM ACETATE 667 MG TABLET 2001 MG PO ×3 (08:24→16:06)
[2020-11-19 08:54] LABS: Troponin I 0.565 ng/mL (0.000-0.034)
--- NOTE | 2020-11-19 09:30 | WPDINTPN ---
Progress Note: A&P Assessment and Plan (1) Shock: Code(s): R57.9 - Shock, unspecified Status: Acute Assessment and Plan: Hypovolemic versus septic. Less likely septic as there is no clear source of infection based on signs and symptoms. She is afebrile and WBC count is within acceptable range. She has received 1.5 L of fluid. Can give additional 500 cc bolus if blood pressure tends to be on the lower side. She has been weaned off from Levophed today in the morning. Lactate is within normal range. She is mentating well. Gentle IV fluid bolus a blood pressure tends to be on the lower side. Continue to hold all blood pressure medication. Continue midodrine at higher dose but may decrease the dose to 10 mg 3 times a day in the next few days. Follow cultures.. Will hold off antibiotics at this time. Procalcitonin level is pending. Initiate abx and keep a low threshold if further clinical data suggest any signs of infection. (2) Aortic stenosis: Qualifiers: Cardiac valve disease etiology: nonrheumatic Qualified Code(s): I35.0 - Nonrheumatic aortic (valve) stenosis Code(s): I35.0 - Nonrheumatic aortic (valve) stenosis Status: Acute Assessment and Plan: Echocardiogram showed ejection fraction of 25-30%. Grade 2 diastolic dysfunction. Moderate aortic stenosis with severe aortic wall sclerosis. Pulmonary hypertension with estimated pulmonary artery pressure of 48. In May 2020 showed ejection fraction of 40-45%. Reportedly she has been told at [facility] that it is early for her to replace aortic wall. Cardiology service is planning to have cardiac catheterization in a.m.. NPO overnight and will hold [employer] for the procedure. (3) End stage renal disease: Code(s): N18.6 - End stage renal disease Status: Chronic Assessment and Plan: Nephrology service recommendations appreciated. She will be dialyzed tomorrow at her regular schedule. Will ask them to keep her euvolemic and be conservative on taking of fluid during next sessions of dialysis. (4) Anemia: Code(s): D64.9 - Anemia, unspecified Status: Acute Assessment and Plan: She does have history of GI bleed in the past and has chronic anemia but her H&H is at baseline with no significant change. (5) Hypertension: Qualifiers: Hypertension type: unspecified Qualified Code(s): I10 - Essential (primary) hypertension Code(s): I10 - Essential (primary) hypertension Status: Acute Assessment and Plan: Continue to hold all the antihypertensive medications including hydralazine, lisinopril amlodipine and Lasix. She was orthostatic hypotensive during her recent admission in October and was started on midodrine but her antihypertensive medication were continued at the time of discharge. Continue to monitor hemodynamics closely. (6) Diabetes: Qualifiers: Diabetes mellitus type: type 2 Diabetes mellitus senior care insulin use: without drain cleaner plumber use Diabetes mellitus complication status: with kidney complications Diabetes mellitus complication detail: with chronic kidney disease Chronic kidney disease stage: on chronic dialysis Qualified Code(s): E11.22 - Type 2 diabetes mellitus with diabetic chronic kidney disease; N18.6 - End stage renal disease; Z99.2 - Dependence on renal dialysis Code(s): E11.9 - Type 2 diabetes mellitus without complications Status: Chronic Assessment and Plan: Insulin sliding scale (7) Morbid obesity: Code(s): E66.01 - Morbid (severe) obesity due to excess calories Status: Acute Assessment and Plan: Continue to monitor Additional Plan DVT prophylaxis with Eliquis at her home dose GI prophylaxis with pantoprazole Full code She will be downgraded to Med surge/IMU status later today if she continued to do well and blood pressure remained within acceptable rang
[2020-11-19] MEDS: TOLNAFTATE 1% POWDER 45 GM BTL 1 APPLIC TOPICAL ×2 (09:58→20:28)
[2020-11-19] MEDS: INSULIN HUMAN ISOPHAN/REGULAR 70/30 (*BKC) 100 UNITS/ML 10 UNITS SUB-Q (09:59)
[2020-11-19] MEDS: NEOMYCIN/POLYMYXIN/BACITRACIN OINTMENT PACKET 1 PACKET (09:59)
[2020-11-19 11:52] LABS: Glucose Point of Care 88 (65-105)
[2020-11-19] MEDS: ACETAMINOPHEN 325 MG TABLET 650 MG PO (11:52)
--- NOTE | 2020-11-19 12:41 | PM.IMPN ---
Progress Note: A&P Assessment and Plan (1) Shock: Code(s): R57.9 - Shock, unspecified Status: Acute Assessment and Plan: She was noted to be HoTN during her last admission in October; hydralazine and lisinopril stopped and midodrine started. Patient dizzy and weak since last admission. Patient returns for similar symptoms and found to be HoTN. CXR clear and CT brain showing no acute findings on admission here. Probably cardiogenic but consider hypovolemic. Septic shock less likely. Echo here showing EF 25-30% down from 40-45% from July. HoTN and lower EF probably related to but no significant pulmonary edema. Treated with IV fluids but not continued. Start on levophed and BP became better controlled. Cortisol and TSH levels normal here. Cardiology consulted and appreciate their input. Levophed able to be weaned off this morning. If BP remains stable, then will move to IMU later today. (2) Elevated troponin: Code(s): R77.8 - Other specified abnormalities of plasma proteins Status: Acute Assessment and Plan: Trop elevated at 0.56. [place] related to the HoTN and not plaque rupture. EKG showing ST-T wave changes in the high lateral leads but present on EKG last admission and appears improved. Echo showing depressed EF when compared to EF from July probably related to the . As above. (3) Dizziness: Code(s): R42 - Dizziness and giddiness Status: Resolved Assessment and Plan: Related to the hypotension. As above. (4) Aortic stenosis: Qualifiers: Cardiac valve disease etiology: nonrheumatic Qualified Code(s): I35.0 - Nonrheumatic aortic (valve) stenosis Code(s): I35.0 - Nonrheumatic aortic (valve) stenosis Status: Acute Assessment and Plan: BLAKE here in July 2020 showing HUE 0.5-0.7cm2. She was sent to [facility] but they felt that it was premature to have valve surgery now. She is supposed to have follow up with [facility] this month. Echo here showing moderate but BLAKE showing severe from July. As above. (5) End stage renal disease: Code(s): N18.6 - End stage renal disease Status: Chronic Assessment and Plan: ESRD since around 2016. She has a left upper extremity fistula that extends into the subclavian. Recent fistulogram performed in September was okay; it was done elsewhere so can not verify. Resume HD on her schedule per nephrology. Will need to watch BP closely. Appreciate Nephrology input. (6) Anemia: Code(s): D64.9 - Anemia, unspecified Status: Acute Assessment and Plan: Macrocytic anemia with Hgb running 7-9 range mostly. Hgb 8.4 on presentation. Iron studies okay except for low TIBC in May. B12 and folate levels normal in October. Monitor HH. Okay to resume Eliquis. (7) Diabetes: Qualifiers: Chronic kidney disease stage: on chronic dialysis Diabetes mellitus complication detail: with chronic kidney disease Diabetes mellitus complication status: with kidney complications Diabetes mellitus exterminator helper insulin use: without exterminator helper use Diabetes mellitus type: type 2 Qualified Code(s): E11.22 - Type 2 diabetes mellitus with diabetic chronic kidney disease; N18.6 - End stage renal disease; Z99.2 - Dependence on renal dialysis Code(s): E11.9 - Type 2 diabetes mellitus without complications Status: Chronic Assessment and Plan: A1c 5.0 in October 2020. Takes 70/30 25U BID at home. Patient probably too tightly controlled. Hypoglycemia could be contributing to her weakness. The patient's blood glucose was reviewed on 11/19 Glucose well controlled. Monitor closely with [employer] covering with sliding scale. Hypoglycemia protocol available as needed. Continue 70/30 at lower dose. (8) Hypertension: Qualifiers: Hypertension type: unspecified Qualified Code(s): I10 - Essential (primary) hypertension
--- NOTE | 2020-11-19 13:30 | PM.PNNEP ---
Progress Note: A&P Assessment and Plan (1) End stage renal disease: Code(s): N18.6 - End stage renal disease Status: Chronic Assessment and Plan: plan HD tomorrow and maintain M/W/F schedule for now no critical electrolytes, stable acid-base status, and no signs of fluid overload follow hemodynamics with dialysis tomorrew (2) Shock: Code(s): R57.9 - Shock, unspecified Status: Acute Assessment and Plan: due to volume depletion versus too much anti-HTN meds versus not enough midodrine versus something else sepsis seems less likely possible autonomic dysfunction secondary to her diabetes(?) suspect aortic stenosis contributing as well holding BP meds and titrating midodrine off pressors currently (3) Aortic stenosis: Qualifiers: Cardiac valve disease etiology: nonrheumatic Qualified Code(s): I35.0 - Nonrheumatic aortic (valve) stenosis Code(s): I35.0 - Nonrheumatic aortic (valve) stenosis Status: Acute Assessment and Plan: as noted by history playing a role with #2(?) repeat Echo noted (4) Anemia: Code(s): D64.9 - Anemia, unspecified Status: Chronic Assessment and Plan: due to ESRD Epogen with HD follow trend of H/H (5) Weakness: Code(s): R53.1 - Weakness Status: Acute Assessment and Plan: presumably related to #2 anemia may be contributing as well optimize BP as tolerated PT/OT when more stable (6) Diabetes: Qualifiers: Chronic kidney disease stage: on chronic dialysis Diabetes mellitus complication detail: with chronic kidney disease Diabetes mellitus complication status: with kidney complications Diabetes mellitus salvage determiner insulin use: without shelter use Diabetes mellitus type: type 2 Qualified Code(s): E11.22 - Type 2 diabetes mellitus with diabetic chronic kidney disease; N18.6 - End stage renal disease; Z99.2 - Dependence on renal dialysis Code(s): E11.9 - Type 2 diabetes mellitus without complications Status: Chronic Assessment and Plan: follow acchecks glycemic control Will continue to follow. Subjective Date/time seen: 11/19/20 13:30 Able to be weaned off levophed earlier this AM with higher dose midodrine administration that was started yesterday; overall, seems to be doing better in general; no other acute issues/events overnight or earlier this AM. Exam Narrative: Exam Narrative: General: WD/WN female in NAD Heart: normal S1 and S2; no rub Lungs: clear to auscultation Abdomen: soft, nontender, nondistended, positive bowel sounds Extremities: no cyanosis or clubbing; no edema Skin: warm and dry Objective Data Vital Signs Vital Signs: Vital Signs Temp Pulse Resp BP Pulse Ox 11/19/20 12:00 74 16 103/69 95 11/19/20 11:47 35.7 C L 11/19/20 10:01 73 15 107/48 L 92 11/19/20 10:00 73 11/19/20 09:55 96 11/19/20 08:45 113/95 H 11/19/20 08:30 106/68 11/19/20 08:01 76 13 98/69 L 98 11/19/20 08:00 76 11/19/20 07:46 97 11/19/20 07:30 87/66 L 11/19/20 06:00 76 15 104/63 98 11/19/20 05:47 75 92/52 L 11/19/20 04:00 78 97 11/19/20 03:34 36.3 C L 79 15 92/61 L 98 11/19/20 03:02 81 92/55 L 11/19/20 02:00 82 16 92/55 L 97 11/19/20 00:00 36.5 C 82 13 101/86 97 11/18/20 22:17 86 120/64 11/18/20 22:00 84 16 106/40 L 96 11/18/20 20:02 87 119/46 L 11/18/20 20:00 36.7 C 87 14 124/51 L 92 11/18/20 18:55 88 129/55 L 11/18/20 18:01 87 15 108/35 L 94 11/18/20 18:00 87 108/35 L 11/18/20 16:53 88 87/75 L 11/18/20 16:01 35.8 C L 89 16 100/35 L 97 11/18/20 16:00 90 Intake/Output Intake/Output: Intake & Output 11/16/20 11/17/20 11/18/20 11/19/20 23:59 23:59 23:59 23:59 Intake Total 2490.0 680 Output Total 0 0 Balance 2490.0 680 Meds/Results Medicat
--- NOTE | 2020-11-19 13:30 | P.PNNP_ITS ---
Progress Note: A&P Assessment and Plan (1) End stage renal disease: Code(s): N18.6 - End stage renal disease Status: Chronic Assessment and Plan: * plan HD tomorrow and maintain M/W/F schedule for now * no critical electrolytes, stable acid-base status, and no signs of fluid overload * follow hemodynamics with dialysis tomorrew (2) Shock: Code(s): R57.9 - Shock, unspecified Status: Acute Assessment and Plan: * due to volume depletion versus too much anti-HTN meds versus not enough midodrine versus something else * sepsis seems less likely * possible autonomic dysfunction secondary to her diabetes(?) * suspect aortic stenosis contributing as well * holding BP meds and titrating midodrine * off pressors currently (3) Aortic stenosis: Qualifiers: Cardiac valve disease etiology: nonrheumatic Qualified Code(s): I35.0 - Nonrheumatic aortic (valve) stenosis Code(s): I35.0 - Nonrheumatic aortic (valve) stenosis Status: Acute Assessment and Plan: * as noted by history * playing a role with #2(?) * repeat Echo noted (4) Anemia: Code(s): D64.9 - Anemia, unspecified Status: Chronic Assessment and Plan: * due to ESRD * Epogen with HD * follow trend of H/H (5) Weakness: Code(s): R53.1 - Weakness Status: Acute Assessment and Plan: * presumably related to #2 * anemia may be contributing as well * optimize BP as tolerated * PT/OT when more stable (6) Diabetes: Qualifiers: Chronic kidney disease stage: on chronic dialysis Diabetes mellitus complication detail: with chronic kidney disease Diabetes mellitus complication status: with kidney complications Diabetes mellitus fdc insulin use: without fdc use Diabetes mellitus type: type 2 Qualified Code(s): E11.22 - Type 2 diabetes mellitus with diabetic chronic kidney disease; N18.6 - End stage renal disease; Z99.2 - Dependence on renal dialysis Code(s): E11.9 - Type 2 diabetes mellitus without complications Status: Chronic Assessment and Plan: * follow acchecks * glycemic control Will continue to follow. Subjective Date/time seen: 11/19/20 13:30 Able to be weaned off levophed earlier this AM with higher dose midodrine administration that was started yesterday; overall, seems to be doing better in general; no other acute issues/events overnight or earlier this AM. Exam Narrative: Exam Narrative: General: WD/WN female in NAD Heart: normal S1 and S2; no rub Lungs: clear to auscultation Abdomen: soft, nontender, nondistended, positive bowel sounds Extremities: no cyanosis or clubbing; no edema Skin: warm and dry Objective Data Vital Signs Vital Signs: Vital Signs Temp Pulse Resp BP Pulse Ox 11/19/20 12:00 74 16 103/69 95 11/19/20 11:47 35.7 C L 11/19/20 10:01 73 15 107/48 L 92 11/19/20 10:00 73 11/19/20 09:55 96 11/19/20 08:45 113/95 H 11/19/20 08:30 106/68 11/19/20 08:01 76 13 98/69 L 98 11/19/20 08:00 76 11/19/20 07:46 97 11/19/20 07:30 87/66 L 11/19/20 06:00 76 15 104/63 98 11/19/20 05:47 75 92/52 L 11/19/20 04:00 78 97 11/19/20 03:34 36.3 C L 79 15 92/61 L 98 11/19/20 03:02 81 92/55 L
--- NOTE | 2020-11-19 15:11 | PCPTNOTE ---
The patient PT evaluation was not able to be completed on 11/19/2020 due to time constraints. Will plan to perform PT evaluation tomorrow.
[2020-11-19 16:11] LABS: Glucose Point of Care 68 (65-105)
[2020-11-19] MEDS: SODIUM CHLORIDE 0.9% IV 250 ML 999 ML IV CONT (18:07)
[2020-11-19 20:24] LABS: Glucose Point of Care 104 (65-105)
[2020-11-19] MEDS: NEOMYCIN/POLYMYXIN/BACITRACIN OINTMENT 15 GM TUBE 1 APPLIC TOPICAL (20:28)
[2020-11-19] MEDS: FLUTICASONE PROPIONATE 0.05% NA SPR 16 GM BTL (*BKC) 1 SPRAY NASAL (20:28)
[2020-11-20] VITALS (38 sets, daily range): BP systolic 73–220; BP diastolic 32–156; PULSE 77–90; RESP 11–24; TEMP 35.6–36.8; O2SAT 91–98
--- NOTE | 2020-11-20 01:10 | ECG_ITS ---
Measurements Intervals [place] Rate: 80 P: 8 LA: 197 QRS: -23 QRSD: 108 T: 115 QT: 382 QTc: 441 Interpretive Statements SINUS RHYTHM BORDERLINE ST-T WAVE ABNORMALITY- HIGH LATERAL LEADS BORDERLINE ECG Electronically Signed On 11-20-2020 7:08:29 CDT by Everett Lemon D.O.
[2020-11-20 05:20] LABS: Hematocrit 28.9 % (37.0-47.0); Hemoglobin 8.9 g/dL (12.0-15.0); Mean Corpuscular HGB Conc 30.8 g/dl (32-36); Mean Corpuscular Hemoglobin 34.8 pg (26-34); Mean Corpuscular Volume 112.9 fl (80-100); Platelet Count Result 234 k/mm3 (150-375); Red Blood Count 2.56 M/mm3 (4.2-5.4); Red Cell Distribution Width 18.6 % (11.5-14.5); White Blood Count 11.3 K/mm3 (4.5-10.0)
[2020-11-20 05:36] LABS: Anion Gap 10 mmol/L (8-16); Blood Urea Nitrogen 49 mg/dL (7-17); Calcium 7.8 mg/dL (8.4-10.2); Carbon Dioxide 23 mmol/L (22-30); Chloride 97 mmol/L (98-107); Estimated CRCL calculation 11 ml/min; Estimated Glomerular Filt Rate 5; Glucose 133 mg/dL (65-105); Magnesium 2.1 mg/dL (1.6-2.3); Phosphorus 8.6 mg/dL (2.5-4.5); Potassium 4.9 mmol/L (3.4-5.0); Sodium 130 mmol/L (137-145)
[2020-11-20] MEDS: MIDODRINE HCL 2.5 MG TABLET 5 MG PO ×3 (06:10→20:37)
[2020-11-20] MEDS: MIDODRINE HCL 10 MG TABLET PO ×3 (06:10→20:37)
--- NOTE | 2020-11-20 08:01 | PM.PNCARD ---
Progress Note: A&P Assessment and Plan (1) Acute hypotension: Code(s): I95.9 - Hypotension, unspecified Status: Acute Assessment and Plan: Improved and off Levophed drip now but had low BP yesterday and back on Levophed drip. Could be due to volume depletion from HD, due to taking BP medications, or sepsis, and perhaps worse in setting of severe aortic stenosis due to low cardiac output. (2) Aortic stenosis: Qualifiers: Cardiac valve disease etiology: nonrheumatic Qualified Code(s): I35.0 - Nonrheumatic aortic (valve) stenosis Code(s): I35.0 - Nonrheumatic aortic (valve) stenosis Status: Acute Assessment and Plan: Obtain medical records from [facility] in [place] hospitalization about their thoughts on aortic stenosis. On transthoracic echo the valve is not well seen, but it is severely calcified. By continuity equation,gradients and dimensionless index does not point to severe , however, BLAKE planimetry does show severe with valve area of 0.5-0.7 cm2 in July 2020. I just reviewed her BLAKE from July and it is severe with probably bicuspid aortic valve or due to calcifications. Perhaps aortic stenosis by catheter gradients on left heart cath will be deciding factor if aortic stenosis is indeed severe or not. (3) Acute systolic heart failure: Code(s): I50.21 - Acute systolic (congestive) heart failure Status: Acute Assessment and Plan: This could be due to severe . Discussed need for left heart cath to assess coronaries and to assess aortic stenosis by catheter gradients. Will refer to [facility] [place] on Friday for procedure. Holding off on beta alecia/lamonte inh due to hypotension. Eliquis on hold since 11/18/20 evening dose. Keep NPO after midnight in case she goes for cardiac cath. (4) Elevated troponin: Code(s): R77.8 - Other specified abnormalities of plasma proteins Status: Acute Assessment and Plan: Troponin 0.431 then 0.5 which are moderately elevated. This could be due to hypotension with CKD. No clinical symptoms to suggest ACS. Trend troponins. Subjective Date/time seen: 11/20/20 08:01 Denies chest pain or sob. Exam Const: General: cooperative, healthy appearing and comfortable Nutritional Appearance: obese Resp: Auscultation: clear to auscultation bilaterally, no crackles, no rales, no rhonchi and no wheezes Cardio: Jugular venous distension: no JVD Rate: regular rate Rhythm: regular rhythm Heart sounds: Murmur heart sound present (III/ systolic murmur RICS) Peripheral pulses: dorsalis pedis present GI: GI Palp: No abdominal tenderness and Yes Soft to palpation Neuro: General: oriented to person, oriented to place and oriented to time Extrem: Right lower extremity: edema Left lower extremity: edema Other: Mild edema of legs Objective Data Vital Signs Vital Signs: Vital Signs - 24 hr 11/19/20 08:30 11/19/20 08:45 11/19/20 09:55 Temperature Pulse Rate Respiratory Rate Blood Pressure 106/68 113/95 H Pulse Oximetry 96 11/19/20 10:00 11/19/20 10:01 11/19/20 11:47 Temperature 96.2 F L Pulse Rate 73 73 Respiratory Rate 15 Blood Pressure 107/48 L Pulse Oximetry 92 11/19/20 12:00 11/19/20 14:00 11/19/20 16:00 Temperature Pulse Rate 74 72 71 Respiratory Rate 16 13 Blood Pressure 103/69 86/43 L Pulse Oximetry 95 98 94 11/19/20 16:01 11/19/20 18:00 11/19/20 18:36 Temperature 97.3 F L Pulse Rate 71 69 Respiratory Rate 16 15 Blood Pressure 79/43 L 97/56 L 83/44 L Pulse Oximetry 96 94 11/19/20 20:00 11/19/20 22:00 11/19/20 22:01 Temperature 97.3 F L Pulse Rate 78 76 76 Respiratory Rate 21 H 12 Blood Pressure 116/92 H 102/45 L Pulse Oximetry 95 95 11/20/20 00:00 11/20/20 00:01 11/20/20 00:16 Temperature 96.9 F L Pulse Rate 77 78 78 Respiratory Rate 14 12 Blood Pressure 73/59 L 73/59 L 108/52 L Pulse Oximetry 96 96 96 11/20/20 00:30 11/20/20 02:00
[2020-11-20 08:27] LABS: Glucose Point of Care 115 (65-105)
--- NOTE | 2020-11-20 09:19 | PCPTNOTE ---
Attempted PT eval. Pt refused as she wanted to eat first. Will try again at later time
--- NOTE | 2020-11-20 09:43 | PM.IMPN ---
Progress Note: A&P Assessment and Plan (1) Shock: Code(s): R57.9 - Shock, unspecified Status: Acute Assessment and Plan: She was noted to be HoTN during her last admission in October; hydralazine and lisinopril stopped and midodrine started. Patient dizzy and weak since last admission. Patient returns for similar symptoms and found to be HoTN. CXR clear and CT brain showing no acute findings on admission here. Probably cardiogenic but consider hypovolemic. Septic shock less likely. Echo here showing EF 25-30% down from 40-45% from July. HoTN and lower EF probably related to but no significant pulmonary edema. Treated with IV fluids but not continued. Start on levophed and BP became better controlled. Cortisol and TSH levels normal here. Cardiology consulted and appreciate their input. Levophed able to be weaned yesterday morning but had to be resumed yesterday afternoon. LHC today. LHC showing moderate aortic valve stenosis with a valve area of 1.1 cm2, moderate LV systolic dysfunction with anterolateral hypocontractility and multivessel coronary disease with high-grade ostial lesions of the LAD and large ramus intermedius branch which is in the distribution of a large diagonal. Patient also has significant disease in the trunk of the circumflex above before the last medium-size marginal branch as well as ostial stenosis of the large size RPDA. (2) Elevated troponin: Code(s): R77.8 - Other specified abnormalities of plasma proteins Status: Acute Assessment and Plan: Trop elevated at 0.56. [place] related to the HoTN and not plaque rupture. EKG showing ST-T wave changes in the high lateral leads but present on previous EKGs. Echo showing depressed EF when compared to EF from July but probably related to the . As above. (3) Dizziness: Code(s): R42 - Dizziness and giddiness Status: Resolved Assessment and Plan: Related to the hypotension. As above. (4) Aortic stenosis: Qualifiers: Cardiac valve disease etiology: nonrheumatic Qualified Code(s): I35.0 - Nonrheumatic aortic (valve) stenosis Code(s): I35.0 - Nonrheumatic aortic (valve) stenosis Status: Acute Assessment and Plan: BLAKE here in July 2020 showing HUE 0.5-0.7cm2. She was sent to [place] but they felt that it was premature to have valve surgery now. She is supposed to have follow up with [facility] this month. Echo this admission showing moderate but BLAKE showing severe from July. As above. Valve area 1.1cm2 by [facility]. Suspect her symptoms more consistent with cardiac ischemia. (5) End stage renal disease: Code(s): N18.6 - End stage renal disease Status: Chronic Assessment and Plan: ESRD since around 2016. She has a left upper extremity fistula that extends into the subclavian. Recent fistulogram performed in September was okay; it was done elsewhere so can not verify. Resume HD on her schedule per nephrology. Will need to watch BP closely. Appreciate Nephrology input. (6) Anemia: Code(s): D64.9 - Anemia, unspecified Status: Acute Assessment and Plan: Macrocytic anemia with Hgb running 7-9 range mostly. Hgb 8.4 on presentation. Iron studies okay except for low TIBC in May. B12 and folate levels normal in October. Probably anemia of chronic disease related to her ESRD. Monitor HH. (7) Diabetes: Qualifiers: Chronic kidney disease stage: on chronic dialysis Diabetes mellitus complication detail: with chronic kidney disease Diabetes mellitus complication status: with kidney complications Diabetes mellitus terminal clerk insulin use: without shelter use Diabetes mellitus type: type 2 Qualified Code(s): E11.22 - Type 2 diabetes mellitus with diabetic chronic kidney disease; N18.6 - End stage renal disease; Z99.2 - Dependence on renal dialysis Code(s): E11.9 - Type 2 diabete
--- NOTE | 2020-11-20 10:46 | WPDMODSED ---
Moderate Sedation Note-Pt Data Patient Data Diagnosis: Aortic valve stenosis of uncertain severity concerning hypotension end-stage renal disease on hemodialysis massive obesity Present Complaint: anxiety regarding today's procedure no other complaints Procedure to be performed/Plan: right and left heart catheterization assuming that vascular access can be achieved Allergies Allergy/AdvReac Type Severity Reaction Status Date / Time aspartame Allergy Unknown Unknown Verified 11/18/20 05:20 latex Allergy Unknown Unknown Verified 11/18/20 05:20 Home Medications Medication Instructions Recorded Confirmed Type ergocalciferol (vitamin D2) 50,000 unit PO WEEKLY 01/02/20 11/18/20 History gabapentin 200 mg PO BID 01/02/20 11/18/20 History Eliquis 5 mg PO Q12H 06/11/20 11/18/20 History citalopram 40 mg PO DAILY 06/11/20 11/18/20 History sevelamer carbonate 800 mg PO TID 06/11/20 11/18/20 History carvedilol 12.5 mg PO Q12H 06/12/20 11/18/20 History furosemide 40 mg PO DAILY #0 tablet 06/14/20 11/18/20 Rx Novolin 70/30 U-100 Insulin 25 unit SUBCUT BID 07/28/20 11/18/20 History insulin aspart U-100 [Novolog 1 sliding scale dose SUBCUT 07/28/20 11/18/20 History U-100 Insulin aspart] USEASDIRECTD midodrine 10 mg PO Q8HR #90 tablet 11/09/20 11/18/20 Rx B complex with C 20-folic acid 1 cap PO DAILY 11/18/20 11/18/20 History [Virt-Caps] calcium acetate(phosphat bind) 2,001 mg PO TID 11/18/20 11/18/20 History Current Medications: Active Medications Acetaminophen (Acetaminophen 325 Mg Tablet) 650 mg PO Q6H PRN PRN Reason: Mild Pain (1-3) or Fever Last Admin: 11/19/20 11:52 Dose: 650 mg Documented by: Apixaban (Apixaban 5 Mg Tablet) 5 mg PO Q12HR [facility] Last Admin: 11/18/20 22:11 Dose: 5 mg Documented by: Calcium Acetate (Calcium Acetate 667 Mg Tablet) 2,001 mg PO TID [facility] Last Admin: 11/19/20 16:06 Dose: 2,001 mg Documented by: Citalopram Hydrobromide (Citalopram Hydrobromide 20 Mg Tablet) 40 mg PO DAILY [facility] Last Admin: 11/19/20 08:23 Dose: 40 mg Documented by: Dextrose (Dextrose 50% 25 Gm/50 Ml Syringe) 12.5 gm IV PUSH PRN PRN; Protocol PRN Reason: Hypoglycemia Epoetin Mg-epbx (Epoetin Mg-Epbx 10,000 Units/Ml Vial) 10,000 units IV PUSH ONCE ONE Stop: 11/20/20 14:01 Ergocalciferol (Ergocalciferol 50,000 Unit Capsule) 50,000 unit PO We@0900 [facility] Fluticasone Propionate (Fluticasone Propionate 0.05% Na Spr 16 Gm Btl (*Bkc)) 1 spray NASAL Q12HR [facility] Last Admin: 11/19/20 20:28 Dose: 1 spray Documented by: Gabapentin (Gabapentin 100 Mg Capsule) 200 mg PO BID [facility] Last Admin: 11/19/20 16:07 Dose: 200 mg Documented by: Glucagon (Glucagon For Inj 1 Mg Vial) 1 mg IM PRN PRN; Protocol PRN Reason: Hypoglycemia Glucose (Glucose Oral Gel 15 Gm Of Glucse In 37.5 Gm Tube) 15 gm PO PRN PRN; Protocol PRN Reason: Hypoglycemia Dextrose (Dextrose 5% 1,000 Ml) 1,000 mls @ 100 mls/hr IVPB PRN PRN; Protocol PRN Reason: Hypoglycemia Norepinephrine Bitartrate (Levophed 8 Mg/D5w 250 Ml) 8 mg in 250 mls @ 7.5 mls/hr IV CONT .[id number] [facility]; Protocol Last Titration: 11/20/20 08:53 Dose: 4 mcg/min, 7.5 mls/hr Documented by: Insulin Aspart (Insulin Aspart (*Bkc) 100 Units/Ml) 4 - 8 units SUB-Q TIDWM [facility]; Protocol Last Admin: 11/20/20 08:22 Dose: Not Given Documented by: Insulin Human Isoph/Insulin Regular (Insulin Human Isophan/Regular 70/30 (*Bkc) 100 Units/Ml) 10 units SUB-Q BIDWM [facility] Last Admin: 11/19/20 16:04 Dose: Not Given Documented by: Midodrine (Midodrine Hcl 10 Mg Tablet) 10 mg PO Q8HR [facility] Last Admin: 11/20/20 06:10 Dose: 10 mg Documented by: Midodrine (Midodrine Hcl 2.5 Mg Tablet) 5 mg PO Q8HR [facility] Last Admin: 11/20/20 06:10 Dose: 5 mg Documented by: Neomycin/Polymyxin/Bacitracin (Neomycin/Polymyxin/Bacitracin Ointment 15 Gm Tube) 1 applic TOPICAL Q12HR [facility] Last Admin: 11/19/20 20:28 Dose: 1 applic Documented by: Sevelamer Carbonate (Sevelamer Carbonate 800 Mg Tablet) 800 mg PO TID [facility] Last A
--- NOTE | 2020-11-20 11:28 | PCPTNOTE ---
Attempted to see patient for second time this morning, leaving for cardiac cath, will attempt again when appropriate.
--- NOTE | 2020-11-20 12:20 | WPDINTPN ---
Progress Note: A&P Assessment and Plan (1) Shock: Code(s): R57.9 - Shock, unspecified Status: Acute Assessment and Plan: Hypovolemic versus septic. Less likely septic as there is no clear source of infection based on signs and symptoms. She is afebrile and WBC count is within acceptable range. She has received 2 L of fluid. IV fluid boluses on a as needed basis if she is hypotensive. She has been weaned off from Levophed yesterday but had to be resumed back on it because of persistent hypotension. Lactate is within normal range. She is mentating well. Gentle IV fluid bolus a blood pressure tends to be on the lower side. Continue to hold all blood pressure medication. Continue midodrine at higher dose but may decrease the dose to 10 mg 3 times a day in the next few days. Follow cultures.. Will hold off antibiotics at this time. Procalcitonin level is pending. Initiate abx and keep a low threshold if further clinical data suggest any signs of infection. (2) Aortic stenosis: Qualifiers: Cardiac valve disease etiology: nonrheumatic Qualified Code(s): I35.0 - Nonrheumatic aortic (valve) stenosis Code(s): I35.0 - Nonrheumatic aortic (valve) stenosis Status: Acute Assessment and Plan: Echocardiogram showed ejection fraction of 25-30%. Grade 2 diastolic dysfunction. Moderate aortic stenosis with severe aortic wall sclerosis. Pulmonary hypertension with estimated pulmonary artery pressure of 48. In May 2020 showed ejection fraction of 40-45%. Reportedly she has been told at [facility] that it is early for her to replace aortic wall. Cardiology service is planning to have cardiac catheterization today. Mariel has been on hold. (3) End stage renal disease: Code(s): N18.6 - End stage renal disease Status: Chronic Assessment and Plan: Nephrology service recommendations appreciated. She will be dialyzed today as per her schedule after she undergo left heart catheterization. Will ask them to keep her euvolemic and be conservative on taking of fluid during next sessions of dialysis. (4) Anemia: Code(s): D64.9 - Anemia, unspecified Status: Acute Assessment and Plan: She does have history of GI bleed in the past and has chronic anemia but her H&H is at baseline with no significant change. (5) Hypertension: Qualifiers: Hypertension type: unspecified Qualified Code(s): I10 - Essential (primary) hypertension Code(s): I10 - Essential (primary) hypertension Status: Acute Assessment and Plan: Continue to hold all the antihypertensive medications including hydralazine, lisinopril amlodipine and Lasix. She was orthostatic hypotensive during her recent admission in October and was started on midodrine but her antihypertensive medication were continued at the time of discharge. Continue to monitor hemodynamics closely. (6) Diabetes: Qualifiers: Diabetes mellitus type: type 2 Diabetes mellitus exterminator helper insulin use: without exterminator helper use Diabetes mellitus complication status: with kidney complications Diabetes mellitus complication detail: with chronic kidney disease Chronic kidney disease stage: on chronic dialysis Qualified Code(s): E11.22 - Type 2 diabetes mellitus with diabetic chronic kidney disease; N18.6 - End stage renal disease; Z99.2 - Dependence on renal dialysis Code(s): E11.9 - Type 2 diabetes mellitus without complications Status: Chronic Assessment and Plan: Insulin sliding scale (7) Morbid obesity: Code(s): E66.01 - Morbid (severe) obesity due to excess calories Status: Acute Assessment and Plan: Continue to monitor Additional Plan DVT prophylaxis with Eliquis at her home dose. Eliquis has been on hold for cardiac catheterization but will be resumed after catheterization. GI prophylaxis with pantoprazole Full code
--- NOTE | 2020-11-20 12:32 | WPDCARDPROC ---
Cardiac Cath Procedure Note Date of procedure:: 11/20/20 Performing physician:: Rohit Jean-Baptiste MD Indication:: evaluation of aortic valve stenosis Brief clinical history:: this is a 60-year-old woman with end-stage renal disease on hemodialysis who has aortic valve stenosis and has had conflicting echocardiographic finding regarding the severity of the . She is hospitalized because of concerning hypotension right left heart catheterization was recommended. I do not believe she is previously known to have coronary disease but I believe she has never had an angiogram prior to this procedure. The patient is morbidly obese. 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 Her last dose of apixaban was 48 hours ago. Procedure Procedure performed:: Right heart catheterization left heart catheterization calculation of aortic valve area coronary angiography left ventriculography Angio-Seal to right femoral artery Sedation/Medication given:: no sedation administered in the catheterization lab case start time 11:26 a.m. case end time 12:19 p.m. Access site:: right femoral artery, right femoral vein Estimated blood loss:: 20-30 cc Procedure note:: patient was brought to the cardiac catheterization lab in the postabsorptive state. The right femoral triangle was prepped and draped in the usual fashion. Because of morbid obesity adhesive straps were used to retain the pannus cephalad. 20 cc of 1% lidocaine were infiltrated locally. Because the patient was problematically hypotensive in the ICU I did not administer any sedation for this procedure. I was able to puncture the right femoral vein and placed a 7 Romanian vascular sheath. With some challenge I was able to locate it puncture the right femoral artery and place a 6 Romanian long 45 cm sheath which terminates in the thoracic aorta in the vicinity of the diaphragm. This was used so we could record simple take any is aortic and LV pressures. Following this I conducted right heart catheterization using a balloon tip Winston-Anat catheter to assess right-sided hemodynamics and to sample EP O2 difference so that a Ray cardiac output could be calculated. The Winston-Anta catheter was then removed. After this the 5 Romanian angled pigtail catheter was placed into the aortic root and simultaneous is pressures were demonstrated but in the catheter and in the side arm of the sheath and they were identical. Following this I used a standard 035 straight wire to probe the stenotic aortic valve and successfully entered the left ventricle the pigtail catheter was placed into the cavity of the LV and simultaneous LV and aortic pressures were measured and aortic valve area was then calculated. Following this I used the same catheter to injected LV g in the [place] projection. the pigtail catheter was then removed. I used standard 5 Romanian FL4 catheter to engage inject the left coronary artery and then a standard 5 Romanian JR4 catheter to engage and inject the right coronary artery. The procedure was then terminated I withdrew the 45 cm sheath into the iliac artery on the right side and injected angiogram in the [place] and DAVI projection. The puncture site was appropriate for Angio-Seal I then deployed a 6 Romanian Angio-Seal at the puncture site with a good hemostatic result. Thus but the venous sheath was then removed in the photo lab technician as well. The patient was then taken back to ICU for post cath recovery. Because of her massive obesity I ordered 4 hours of bed rest even the we placed an Angio-Seal in the femoral artery puncture site. Procedure was otherwise well tolerated and uncomplicated. Findings:: Hemodynamics: Right atrial pressure is 28 mmHg, right ventricle is 85 over 23 end-diastolic pressure 32, pulmonary artery pressure 85/45, pulmonary capillary wedge pressure 42 central aorta 1 38 over 70, left ventricle 163 over 14 end-diastolic pressure 38. Thick cardiac output is 7.0 lit
[2020-11-20] MEDS: TOLNAFTATE 1% POWDER 45 GM BTL 1 APPLIC TOPICAL ×2 (12:53→20:36)
[2020-11-20] MEDS: FLUTICASONE PROPIONATE 0.05% NA SPR 16 GM BTL (*BKC) 1 SPRAY NASAL ×2 (12:54→20:36)
[2020-11-20] MEDS: SEVELAMER CARBONATE 800 MG TABLET PO (12:54)
[2020-11-20] MEDS: CITALOPRAM HYDROBROMIDE 20 MG TABLET 40 MG PO (12:54)
[2020-11-20] MEDS: CALCIUM ACETATE 667 MG TABLET 2001 MG PO (12:54)
[2020-11-20] MEDS: VITAMIN B CMPLX/VIT C/FOLIC AC 1 CAPSULE 1 CAP PO (12:54)
[2020-11-20] MEDS: NEOMYCIN/POLYMYXIN/BACITRACIN OINTMENT 15 GM TUBE 1 APPLIC TOPICAL ×2 (12:54→20:36)
[2020-11-20 13:03] LABS: Glucose Point of Care 121 (65-105)
--- NOTE | 2020-11-20 13:19 | PCPTNOTE ---
Attempted PT eval. Hold PT due to bed rest following cardiac cath. Will try again tomorrow.
[2020-11-20] MEDS: SODIUM CHLORIDE 0.9% IV 1,000 ML 125 ML IV CONT (13:59)
[2020-11-20] MEDS: NOREPINEPHRINE 8 MG/D5W 250 ML 8 MG/250 ML BAG 5.63 MG IV CONT (15:26)
[2020-11-20 17:56] LABS: Glucose Point of Care 209 (65-105)
[2020-11-20] MEDS: EPOETIN ALFA-EPBX 10,000 UNITS/ML VIAL 10000 UNITS IV PUSH (18:53)
[2020-11-20] MEDS: APIXABAN 5 MG TABLET PO (20:36)
[2020-11-20] MEDS: ACETAMINOPHEN 325 MG TABLET 650 MG PO (20:46)
--- NOTE | 2020-11-20 20:47 | PHAR ---
Patient's midodrine administered early to facilitate intrafacility transfer.
--- NOTE | 2020-11-20 23:29 | PC.NURSE ---
Report given to EMS. All patient belongings gathered. No further questions. [place] notified of departure.
--- NOTE | 2020-11-21 09:50 | PM.TDS ---
Transfer Discharge Sum: Prov Provider Date of admission: 11/18/20 06:30 Primary care physician: CSR TECHNICIAN PHYSICIAN Admitting clinician: Hugo Belcher MD Consults: 11/18/20 Consult to Physician Routine Comment: EXCHANGE NOTIFIED OF CONSULT Consulting Provider: Robin Taylor call center supervisor/MD group to consult: Nephrology Reason for consultation: ESRD on HD. Need continuation Has provider been notified: Yes 11/18/20 06:31 Consult to Physician Routine Comment: Consulting Provider: John Choi Reason for consultation: hypotension Has provider been notified: Yes 11/18/20 19:12 Consult to Physician Routine Comment: SPOKE WITH DR. QUEZADA Consulting Provider: Everett Quezada call center supervisor/ group to consult: Dr Quezada Reason for consultation: aortic stenosis Has provider been notified: Yes 11/20/20 Care Coordination Consult Routine Comment: Reason for Consult:: Advanced Directives Consult to Physician Routine Comment: dr. jean-baptiste has been notified Consulting Provider: Rohit Jean-Baptiste call center supervisor/MD group to consult: HCG Reason for consultation: Left heart cath and assess aortic stenosis Has provider been notified: Yes Attending physician on discharge: Emre Jarrett Discharging clinician: sivan Anticipated date of transfer: 11/20/20 Receiving physician/facility: [facility] DS: Admitting Diagnosis Admitting Diagnosis Admitting Diagnosis: Dizziness and HoTN DS: Discharge Diagnosis Discharge Diagnosis (1) Shock: Code(s): R57.9 - Shock, unspecified Status: Acute Assessment and Plan: Patient was noted to be HoTN during her last admission in October; hydralazine and lisinopril stopped and midodrine started. Patient dizzy and weak since last admission. Patient returns to ED for similar symptoms and found to be HoTN. CXR clear and CT brain showing no acute findings on admission here. Probably cardiogenic. Septic shock less likely. Echo here showing EF 25-30% down from 40-45% from July. Treated with IV fluids but not continued. Started on levophed and BP became better controlled. Cortisol and TSH levels normal here. Cardiology consulted and appreciate their input. [facility] 11/20/20 showing moderate aortic valve stenosis with a valve area of 1.1 cm2, moderate LV systolic dysfunction with anterolateral hypocontractility and multivessel coronary disease with high-grade ostial lesions of the LAD and large ramus intermedius branch which is in the distribution of a large diagonal. Patient also has significant disease in the trunk of the circumflex before the last medium-size marginal branch as well as ostial stenosis of the large size RPDA. Because of her significant coronary disease, she was transferred to [place] for evaluation for possible CABG. (2) Elevated troponin: Code(s): R77.8 - Other specified abnormalities of plasma proteins Status: Acute Assessment and Plan: Trop elevated at 0.56. [place] related to the HoTN and not plaque rupture. EKG showing ST-T wave changes in the high lateral leads but present on previous EKGs and not felt to be new. Echo showing depressed EF when compared to EF from July related to the severe CAD and cardiac ischemia . (3) CAD (coronary artery disease): Code(s): I25.10 - Atherosclerotic heart disease of [place] coronary artery without angina pectoris Status: Inactive Assessment and Plan: As above. (4) Dizziness: Code(s): R42 - Dizziness and giddiness Status: Resolved Assessment and Plan: Related to the hypotension. As above. (5) Aortic stenosis: Qualifiers: Cardiac valve disease etiology: nonrheumatic Qualified Code(s): I35.0 - Nonrheumatic aortic (valve) stenosis Code(s): I35.0 - Nonrheumatic aortic (valve) stenosis Status: Acute Assessment and Plan: BLAKE here in July 2020 showing HUE 0.5-0.7cm2. She was sent to [place] but they felt t
== END 2020-11-20 23:33 | disposition short-term general hospital (02) | DRG 286 ==
LOC: ANHED 07:03 → ANHICU 09:51
PROVIDERS: Internal Medicine Cardiovascular Disease; Internal Medicine Critical Care Medicine; Specialist; Admitting Provider Family Medicine; Emergency Provider Emergency Medicine; Visit Provider Internal Medicine
PROC: 4A023N8 Measurement of Cardiac Sampling and Pressure, Bilateral, Percutaneous Approach (ICD-10-PCS; CPT 93453; principal; 2020-11-20 11:00)
PROC: 4A023N8 Measurement of Cardiac Sampling and Pressure, Bilateral, Percutaneous Approach (ICD-10-PCS; 2020-11-20 11:00)
DX: I35.0 Nonrheumatic aortic (valve) stenosis (principal); R57.1 Hypovolemic shock; N18.6 End stage renal disease; I50.23 Acute on chronic systolic (congestive) heart failure; I13.2 Hypertensive heart and chronic kidney disease with heart failure and with stage 5 chronic kidney disease, or end stage renal disease; Z68.43 Body mass index [BMI] 50.0-59.9, adult; I95.9 Hypotension, unspecified; E11.22 Type 2 diabetes mellitus with diabetic chronic kidney disease; E66.01 Morbid (severe) obesity due to excess calories; D63.1 Anemia in chronic kidney disease; D53.9 Nutritional anemia, unspecified; F41.8 Other specified anxiety disorders; I25.10 Atherosclerotic heart disease of native coronary artery without angina pectoris; E11.319 Type 2 diabetes mellitus with unspecified diabetic retinopathy without macular edema; R79.89 Other specified abnormal findings of blood chemistry; E11.42 Type 2 diabetes mellitus with diabetic polyneuropathy; Z99.2 Dependence on renal dialysis; Z86.711 Personal history of pulmonary embolism; Z86.73 Personal history of transient ischemic attack (TIA), and cerebral infarction without residual deficits; Z98.42 Cataract extraction status, left eye; Z98.41 Cataract extraction status, right eye; Z87.891 Personal history of nicotine dependence; I25.2 Old myocardial infarction
CPT/HCPCS: 36415; 36600; 51701; 70450; 71045; 80048; 80053; 80307; 82533; 82805; 83605; 83735; 83880; 84100; 84443; 84484; 85025; 85027; 85610; 85730; 87040; 93005; 93460; 93970; 96360; 96361; 97165; 99285; A9270; C1751; C1760; C1769; C1887; C1894; C8929; G0257; G0269; J1644; J1815; J2405; J7030; J7040; J7050; Q5106; Q9957